=== PATIENT | male | born 1945 | race Caucasian/White ===

== ENCOUNTER 2018-06-27 09:45 | Inpatient (IN) | payer MEDICARE, MEDICAID ==
[~2018-06-27] VITALS: Ht 170.2 cm; Wt 89.0 kg
[~2018-06-27 09:45] MED LIST: BUSP10TA11 PO; DOCU250C4 PO; HYDR-3972 PO; NITR0.4T SL; OMEP20CA10 PO; PAX20T PO; PIOG45TA PO
[2018-06-27] MEDS ORDERED: fentaNYL/PF 50MCG/1 ML 2ML syringe IV ONE (09:50)
[2018-06-27] MEDS ORDERED: normal saline 1000ML IV soln IVB ONE (09:50)
[2018-06-27] MEDS ORDERED: ondansetron/PF 4mg/2ml inj IV ONE (09:50)
[2018-06-27 10:29] LABS: INR 1.2 INR; PROTHROMBIN TIME 12.3 SECONDS (9.0-12.0)
[2018-06-27 10:34] LABS: BASOPHILS % (AUTO) 0.1 % (0-1); EOSINOPHILS % (AUTO) 0.1 % (0-6); HEMATOCRIT 36.4 % (42.0-52.0); HEMOGLOBIN 12.6 g/dl (14.0-17.9); LYMPHOCYTES # (AUTO) 0.7 X10'3 (1.1-4.8); LYMPHOCYTES % (AUTO) 11.5 % (21-51); MEAN CORPUSCULAR HGB CONC 34.6 % (33.0-36.5); MEAN PLATELET VOLUME 7.7 FL (7.4-10.4); MONOCYTES # (AUTO) 0.5 X10'3 (0-0.9); MONOCYTES % (AUTO) 8.3 % (2-12); NEUTROPHILS # (AUTO) 4.7 X10'3 (1.8-7.7); PLATELET COUNT 276 X10'3 (140-440); RED CELL DISTRIBUTION WIDTH 13.9 % (11.5-14.5); WHITE BLOOD COUNT 5.9 X10'3 (4.5-11.0)
[2018-06-27 10:35] LABS: ALANINE AMINOTRANSFERASE 17 U/L (12-78); ALBUMIN 2.8 G/DL (3.4-5.0); ALBUMIN/GLOBULIN RATIO 0.7 (1.1-1.5); ALKALINE PHOSPHATASE 223 IU/L (46-116); ANION GAP 9 (8-16); ASPARTATE AMINO TRANSFERASE 21 U/L (10-37); BILIRUBIN,TOTAL 0.8 MG/DL (0.1-1.0); BLOOD UREA NITROGEN 14 MG/DL (7-18); BUN/CREATININE RATIO 18.2 (5.4-32.0); CALCIUM 8.3 MG/DL (8.5-10.1); CHLORIDE 99 MMOL/L (99-107); CREATININE 0.77 MG/DL (0.60-1.10); GLUCOSE 104 MG/DL (70-104); POTASSIUM 3.7 MMOL/L (3.5-5.1); SODIUM 136 MMOL/L (135-145); TOTAL CARBON DIOXIDE 28.2 MMOL/L (24-32); TOTAL PROTEIN 6.6 G/DL (6.4-8.2); eGFR > 90 ML/MIN
[2018-06-27] MEDS ORDERED: CYAN1TAB41 PO (11:04)
[2018-06-27] MEDS ORDERED: CALC1TAB PO (11:04)
[2018-06-27] MEDS ORDERED: PIOG45TA5 PO (11:04)
[2018-06-27] MEDS ORDERED: OXYB5TAB11 PO (11:04)
[2018-06-27] MEDS ORDERED: ASCO500C15 PO (11:04)
[2018-06-27] MEDS ORDERED: nitroGLYCERIN 0.4mg SUBLingual tab SL PRN (11:15)
[2018-06-27] MEDS ORDERED: acetaminophen 325mg tablet PO PRN (11:20)
[2018-06-27] MEDS ORDERED: magnesium 1gm/100ml D5W IVPB 100 ML IV PRN (11:20)
[2018-06-27] MEDS ORDERED: dextrose ORAL solution 15 GM/59 ML bottle PO PRN ×2 (11:20)
[2018-06-27] MEDS ORDERED: magnesium 4gm in 100ml NS 100 ML IV PRN (11:20)
[2018-06-27] MEDS ORDERED: potassium Cl 20 mEq SR tablet PO PRN ×2 (11:20)
[2018-06-27] MEDS ORDERED: potassium Cl 40MEQ/NS 500ml 500 ML IV PRN ×2 (11:20)
[2018-06-27] MEDS ORDERED: insulin Lispro (HumaLOG) vial - multi-dose SQ SCH (11:20)
[2018-06-27] MEDS ORDERED: MESSAGE TO PHARMACY PO ONE (11:20)
[2018-06-27] MEDS ORDERED: mag hydrox/Alum hydrox/simeth 30ml oral suspension PO PRN (11:20)
[2018-06-27] MEDS ORDERED: dextrose 50%-water 50ml dispensing syringe IV PRN ×2 (11:20)
[2018-06-27] MEDS ORDERED: glucagon, human recombinant 1mg kit SUBCUT PRN (11:20)
[2018-06-27] MEDS ORDERED: ondansetron/PF 4mg/2ml inj IV PRN (11:20)
[2018-06-27] MEDS ORDERED: furosemide 10 MG/1 ML 10ml inj IV ONE (11:45)
[2018-06-27] MEDS ORDERED: pneumococcal 23-VAL P-sac vacc 25 mcg/0.5ml vial IMVAC ONE (11:45)
[2018-06-27] MEDS: normal saline 1000ml 1,000 ML IV SCH ×2 (12:01→23:47)
[2018-06-27 12:21] LABS: CLARITY,URINE CLOUDY (Clear); COLOR,URINE YELLOW (Yellow); GLUCOSE, URINE NEGATIVE (Neg); KETONES,URINE 40 mg/dl (Neg); LEUKOCYTE ESTERASE ,URINE NEGATIVE (Neg); NITRITES, URINE NEGATIVE (Neg); OCCULT BLOOD,URINE NEGATIVE (Neg); PH,URINE 6.5 (4.8-8.0); PROTEIN,URINE NEGATIVE (Neg)
[2018-06-27 12:24] LABS: UA COLLECTION TYPE CLN CATCH MIDSTREAM
[2018-06-27 12:33] LABS: AMORPHOUS PHOSPHATES 3+; BACTERIA,URINE NONE SEEN /HPF (Neg); MUCUS STRANDS NONE SEEN /LPF (Neg); RBC,URINE 0-2 /HPF (0-2); SQUAMOUS EPITHELIAL CELL,UR NONE SEEN /LPF (FEW); WBC,URINE NONE SEEN /HPF (0-4)
[2018-06-27] MEDS: HYDROcodone/acetaminophen 10/325mg tab PO PRN ×3 (12:55→23:49)
[2018-06-27 13:07] LABS: HEMOGLOBIN A1C 5.1 % (4.5-6.2)
[2018-06-27 14:00] VITALS: BP 124/87
[2018-06-27 18:00] VITALS: BP 135/74
[2018-06-27] MEDS ORDERED: temazepam 15mg capsule PO PRN (19:40)
[2018-06-27] MEDS: insulin glargine (Lantus) pen - multi-dose SQ SCH (21:00)
[2018-06-27] MEDS: docusate sod 250mg capsule PO SCH (21:03)
[2018-06-27] MEDS: oxybutynin 5mg tablet PO SCH (21:03)
[2018-06-27] MEDS: busPIRone 15mg tablet PO SCH (21:03)
[2018-06-27] MEDS: ipratropium/albuterol 3ml nebule NEB SCH (21:35)
[2018-06-27 22:00] VITALS: BP 126/77
[2018-06-28] MEDS: HYDROcodone/acetaminophen 10/325mg tab PO PRN ×3 (05:13→19:46)
[2018-06-28 05:45] LABS: BASOPHILS % (AUTO) 0.1 % (0-1); EOSINOPHILS % (AUTO) 0.3 % (0-6); HEMATOCRIT 34.7 % (42.0-52.0); HEMOGLOBIN 12.3 g/dl (14.0-17.9); LYMPHOCYTES # (AUTO) 0.8 X10'3 (1.1-4.8); LYMPHOCYTES % (AUTO) 11.2 % (21-51); MEAN CORPUSCULAR HEMOGLOBIN 35.9 PG (27.0-31.0); MEAN CORPUSCULAR HGB CONC 35.5 % (33.0-36.5); MEAN CORPUSCULAR VOLUME 100.9 FL (78-98); MEAN PLATELET VOLUME 7.9 FL (7.4-10.4); MONOCYTES # (AUTO) 0.8 X10'3 (0-0.9); MONOCYTES % (AUTO) 11.7 % (2-12); NEUTROPHILS # (AUTO) 5.4 X10'3 (1.8-7.7); NEUTROPHILS % (AUTO) 76.7 % (42-75); PLATELET COUNT 265 X10'3 (140-440); RED BLOOD COUNT 3.44 X10'6 (4.70-6.10); RED CELL DISTRIBUTION WIDTH 14.2 % (11.5-14.5)
[2018-06-28 06:00] VITALS: BP 147/75
[2018-06-28 06:09] LABS: ALANINE AMINOTRANSFERASE 17 U/L (12-78); ALBUMIN 2.6 G/DL (3.4-5.0); ALBUMIN/GLOBULIN RATIO 0.7 (1.1-1.5); ALKALINE PHOSPHATASE 193 IU/L (46-116); ANION GAP 7 (8-16); ASPARTATE AMINO TRANSFERASE 20 U/L (10-37); BILIRUBIN,TOTAL 0.6 MG/DL (0.1-1.0); BLOOD UREA NITROGEN 16 MG/DL (7-18); BUN/CREATININE RATIO 20.5 (5.4-32.0); CALCIUM 7.9 MG/DL (8.5-10.1); CHLORIDE 101 MMOL/L (99-107); CHOL/HDL RATIO 4.7 (0.00-4.99); CHOLESTEROL 164 MG/DL (0-200); CREATININE 0.78 MG/DL (0.60-1.10); GLUCOSE 99 MG/DL (70-104); HDL CHOLESTEROL 35 MG/DL (35-60); LDL CHOLESTEROL 120 MG/DL (50-100); MAGNESIUM 1.7 MG/DL (1.5-2.4); POTASSIUM 3.9 MMOL/L (3.5-5.1); SODIUM 138 MMOL/L (135-145); TOTAL CARBON DIOXIDE 30.1 MMOL/L (24-32); TOTAL PROTEIN 6.2 G/DL (6.4-8.2); TRIGLYCERIDES 64 MG/DL (20-135); eGFR > 90 ML/MIN
[2018-06-28] MEDS: K and/or MAG REPLACEMENT MC SCH (07:10)
[2018-06-28] MEDS: ascorbic acid 500mg tablet PO SCH (07:27)
[2018-06-28] MEDS: calcium carbonate/vitamin D3 tablet PO SCH (07:29)
[2018-06-28] MEDS: PARoxetine 20mg tablet PO SCH (07:30)
[2018-06-28] MEDS: busPIRone 15mg tablet PO SCH ×2 (07:32→19:45)
[2018-06-28] MEDS: docusate sod 250mg capsule PO SCH ×2 (07:33→19:45)
[2018-06-28] MEDS: oxybutynin 5mg tablet PO SCH ×2 (07:34→19:45)
[2018-06-28] MEDS: pantoprazole 40mg Tablet.DR PO SCH (07:35)
[2018-06-28] MEDS ORDERED: FOLIC ACID PO SCH (08:00)
[2018-06-28] MEDS ORDERED: CYANOCOBALAMIN PO SCH (08:00)
[2018-06-28] MEDS: ipratropium/albuterol 3ml nebule NEB SCH ×3 (09:00→20:11)
[2018-06-28 10:00] VITALS: BP 145/76
[2018-06-28] MEDS ORDERED: clindamycin 600mg/D5W 50ml 50 ML IV ONE (10:00)
[2018-06-28] MEDS ORDERED: enoxaparin 40mg/0.4ml syringe SUBCUT SCH ×2 (13:25→14:00)
[2018-06-28] MEDS ORDERED: furosemide 20 MG/2 ML vial IV SCH ×2 (13:25→14:00)
[2018-06-28] MEDS ORDERED: furosemide 20 MG/2 ML vial IV ONE (14:50)
[2018-06-28] MEDS ORDERED: enoxaparin 40mg/0.4ml syringe SUBCUT ONE (14:50)
[2018-06-28] MEDS: potassium Cl 20 mEq SR tablet PO SCH (17:09)
[2018-06-28 18:00] VITALS: BP 128/71
[2018-06-28] MEDS: lactobacillus rhamnosus 10,000 MMU CELLS/CAPSULE PO SCH (19:45)
[2018-06-28] MEDS: insulin glargine (Lantus) pen - multi-dose SQ SCH (21:00)
[2018-06-28 22:00] VITALS: BP 115/73
[2018-06-29] VITALS (11 sets, daily range): BP systolic 106–159; BP diastolic 67–114
[2018-06-29] MEDS: HYDROcodone/acetaminophen 10/325mg tab PO PRN ×3 (05:00→20:03)
[2018-06-29 05:52] LABS: BASOPHILS % (AUTO) 0.1 % (0-1); EOSINOPHILS % (AUTO) 0.1 % (0-6); HEMATOCRIT 36.1 % (42.0-52.0); HEMOGLOBIN 12.6 g/dl (14.0-17.9); LYMPHOCYTES # (AUTO) 0.5 X10'3 (1.1-4.8); LYMPHOCYTES % (AUTO) 4.9 % (21-51); MEAN CORPUSCULAR HEMOGLOBIN 35.3 PG (27.0-31.0); MEAN CORPUSCULAR VOLUME 100.8 FL (78-98); MEAN PLATELET VOLUME 7.9 FL (7.4-10.4); MONOCYTES # (AUTO) 0.7 X10'3 (0-0.9); MONOCYTES % (AUTO) 7.2 % (2-12); NEUTROPHILS # (AUTO) 8.3 X10'3 (1.8-7.7); NEUTROPHILS % (AUTO) 87.7 % (42-75); PLATELET COUNT 266 X10'3 (140-440); RED BLOOD COUNT 3.59 X10'6 (4.70-6.10); RED CELL DISTRIBUTION WIDTH 14.5 % (11.5-14.5); WHITE BLOOD COUNT 9.5 X10'3 (4.5-11.0)
[2018-06-29 06:10] LABS: ALANINE AMINOTRANSFERASE 14 U/L (12-78); ALBUMIN 2.6 G/DL (3.4-5.0); ALBUMIN/GLOBULIN RATIO 0.7 (1.1-1.5); ALKALINE PHOSPHATASE 184 IU/L (46-116); ANION GAP 5 (8-16); ASPARTATE AMINO TRANSFERASE 18 U/L (10-37); BILIRUBIN,TOTAL 0.7 MG/DL (0.1-1.0); BLOOD UREA NITROGEN 21 MG/DL (7-18); CALCIUM 8.5 MG/DL (8.5-10.1); CHLORIDE 100 MMOL/L (99-107); GLUCOSE 83 MG/DL (70-104); MAGNESIUM 1.7 MG/DL (1.5-2.4); POTASSIUM 4.1 MMOL/L (3.5-5.1); SODIUM 138 MMOL/L (135-145); TOTAL CARBON DIOXIDE 32.8 MMOL/L (24-32); TOTAL PROTEIN 6.2 G/DL (6.4-8.2); eGFR > 90 ML/MIN
[2018-06-29] MEDS: pantoprazole 40mg Tablet.DR PO SCH (07:24)
[2018-06-29] MEDS: busPIRone 15mg tablet PO SCH ×2 (07:24→20:03)
[2018-06-29] MEDS: ascorbic acid 500mg tablet PO SCH (07:24)
[2018-06-29] MEDS: calcium carbonate/vitamin D3 tablet PO SCH (07:25)
[2018-06-29] MEDS: potassium Cl 20 mEq SR tablet PO SCH ×2 (07:25→17:30)
[2018-06-29] MEDS: oxybutynin 5mg tablet PO SCH ×2 (07:26→20:03)
[2018-06-29] MEDS: lactobacillus rhamnosus 10,000 MMU CELLS/CAPSULE PO SCH ×2 (07:26→20:03)
[2018-06-29] MEDS: PARoxetine 20mg tablet PO SCH (07:26)
[2018-06-29] MEDS: docusate sod 250mg capsule PO SCH ×2 (07:26→20:03)
[2018-06-29] MEDS: furosemide 20 MG/2 ML vial IV SCH ×2 (07:27→20:00)
[2018-06-29] MEDS: K and/or MAG REPLACEMENT MC SCH (07:35)
[2018-06-29] MEDS ORDERED: enoxaparin 40mg/0.4ml syringe SUBCUT SCH (08:00)
[2018-06-29] MEDS: ipratropium/albuterol 3ml nebule NEB SCH ×3 (09:00→21:15)
[2018-06-29 11:14] LABS: INR 1.2 INR; PARTIAL THROMBOPLASTIN TIME 31 SECONDS (22-32); PROTHROMBIN TIME 12.1 SECONDS (9.0-12.0)
[2018-06-29] MEDS ORDERED: clindamycin 600mg/D5W 50ml 50 ML IV ONE (15:00)
[2018-06-29] MEDS ORDERED: ondansetron/PF 4mg/2ml inj ONE (15:10)
[2018-06-29] MEDS ORDERED: ePHEDrine 50MG/ML INJ. ONE (15:10)
[2018-06-29] MEDS ORDERED: sevoflurane 250ml liquid IH ONE (15:10)
[2018-06-29] MEDS ORDERED: BUPIVAcaine/PF 7.5mg/ml (0.75%) 10ml vial ONE (15:11)
[2018-06-29] MEDS ORDERED: midazolam 2 mg/2 ml injection ONE (15:13)
[2018-06-29] MEDS ORDERED: fentaNYL/PF 50MCG/1 ML 2ML syringe ONE ×4 (15:13→17:24)
[2018-06-29] MEDS ORDERED: glycopyrrolate 0.2mg/ml inj ONE (15:49)
[2018-06-29] MEDS ORDERED: dexamethasone sod phosphate 4mg/ml inj. ONE (15:49)
[2018-06-29] MEDS ORDERED: propofol inj 20 ML IV ONE (15:49)
[2018-06-29] MEDS ORDERED: rocuronium 10mg/ml inj IV ONE (15:49)
[2018-06-29] MEDS ORDERED: LIDOcaine 2% (20mg/ml) 5ml vial ONE (15:49)
[2018-06-29] MEDS ORDERED: neostigmine methylsulfate 1 MG/ML 10ml vial ONE (15:49)
[2018-06-29] MEDS ORDERED: ringers solution, lacted 1,000 ML IV SCH (16:19)
[2018-06-29] MEDS ORDERED: fentaNYL/PF 50MCG/1 ML 2ML syringe IV PRN (16:20)
[2018-06-29] MEDS ORDERED: HYDROmorphone inj. 0.5 MG/0.5 ML DISP.SYRIN IV PRN (16:20)
[2018-06-29] MEDS ORDERED: ondansetron/PF 4mg/2ml inj IV PRN (16:20)
[2018-06-29] MEDS ORDERED: ipratropium/albuterol 3ml nebule NEB STA (17:08)
[2018-06-29] MEDS ORDERED: labetalol 20mg/4ml (5mg/ml) syringe IV ONE (17:20)
[2018-06-29] MEDS: insulin glargine (Lantus) pen - multi-dose SQ SCH (21:00)
[2018-06-29] MEDS: normal saline 1000ml 1,000 ML IV SCH (22:36)
[2018-06-30] MEDS: HYDROcodone/acetaminophen 10/325mg tab PO PRN ×4 (01:35→20:13)
[2018-06-30 02:00] VITALS: BP 110/69
[2018-06-30 06:00] VITALS: BP 117/72
[2018-06-30 06:52] LABS: ALANINE AMINOTRANSFERASE 16 U/L (12-78); ALBUMIN 2.3 G/DL (3.4-5.0); ALBUMIN/GLOBULIN RATIO 0.7 (1.1-1.5); ALKALINE PHOSPHATASE 146 IU/L (46-116); ANION GAP 6 (8-16); ASPARTATE AMINO TRANSFERASE 20 U/L (10-37); BILIRUBIN,TOTAL 0.8 MG/DL (0.1-1.0); BLOOD UREA NITROGEN 29 MG/DL (7-18); BUN/CREATININE RATIO 37.7 (5.4-32.0); CALCIUM 8.2 MG/DL (8.5-10.1); CHLORIDE 101 MMOL/L (99-107); CREATININE 0.77 MG/DL (0.60-1.10); GLUCOSE 119 MG/DL (70-104); MAGNESIUM 1.7 MG/DL (1.5-2.4); POTASSIUM 4.3 MMOL/L (3.5-5.1); SODIUM 138 MMOL/L (135-145); TOTAL CARBON DIOXIDE 31.5 MMOL/L (24-32); TOTAL PROTEIN 5.8 G/DL (6.4-8.2); eGFR > 90 ML/MIN
[2018-06-30] MEDS: K and/or MAG REPLACEMENT MC SCH (07:04)
[2018-06-30 07:15] LABS: BASOPHILS % (AUTO) 0.2 % (0-1); EOSINOPHILS % (AUTO) 0.4 % (0-6); HEMATOCRIT 32.5 % (42.0-52.0); HEMOGLOBIN 11.2 g/dl (14.0-17.9); LYMPHOCYTES # (AUTO) 0.8 X10'3 (1.1-4.8); LYMPHOCYTES % (AUTO) 11.3 % (21-51); MEAN CORPUSCULAR HEMOGLOBIN 34.8 PG (27.0-31.0); MEAN CORPUSCULAR HGB CONC 34.6 % (33.0-36.5); MEAN CORPUSCULAR VOLUME 100.8 FL (78-98); MEAN PLATELET VOLUME 8.1 FL (7.4-10.4); MONOCYTES # (AUTO) 0.9 X10'3 (0-0.9); MONOCYTES % (AUTO) 12.9 % (2-12); NEUTROPHILS # (AUTO) 5.3 X10'3 (1.8-7.7); NEUTROPHILS % (AUTO) 75.2 % (42-75); PLATELET COUNT 247 X10'3 (140-440); RED BLOOD COUNT 3.22 X10'6 (4.70-6.10); RED CELL DISTRIBUTION WIDTH 14.4 % (11.5-14.5)
[2018-06-30] MEDS: lactobacillus rhamnosus 10,000 MMU CELLS/CAPSULE PO SCH ×2 (08:08→20:12)
[2018-06-30] MEDS: ascorbic acid 500mg tablet PO SCH (08:09)
[2018-06-30] MEDS: potassium Cl 20 mEq SR tablet PO SCH ×2 (08:09→17:01)
[2018-06-30] MEDS: PARoxetine 20mg tablet PO SCH (08:10)
[2018-06-30] MEDS: oxybutynin 5mg tablet PO SCH ×2 (08:10→20:12)
[2018-06-30] MEDS: calcium carbonate/vitamin D3 tablet PO SCH (08:10)
[2018-06-30] MEDS: pantoprazole 40mg Tablet.DR PO SCH (08:11)
[2018-06-30] MEDS: busPIRone 15mg tablet PO SCH ×2 (08:11→20:12)
[2018-06-30] MEDS: docusate sod 250mg capsule PO SCH ×2 (08:11→20:12)
[2018-06-30] MEDS: enoxaparin 40mg/0.4ml syringe SUBCUT SCH (08:12)
[2018-06-30] MEDS: furosemide 20 MG/2 ML vial IV SCH ×2 (08:14→20:14)
[2018-06-30 10:00] VITALS: BP 124/73
[2018-06-30] MEDS: ipratropium/albuterol 3ml nebule NEB SCH ×3 (10:03→21:17)
[2018-06-30] MEDS: normal saline 1000ml 1,000 ML IV SCH ×2 (15:10→22:53)
[2018-06-30 17:00] VITALS: BP 121/73
[2018-06-30] MEDS: insulin glargine (Lantus) pen - multi-dose SQ SCH (21:00)
[2018-06-30 22:00] VITALS: BP 113/68
[2018-07-01] VITALS (11 sets, daily range): BP systolic 109–141; BP diastolic 57–103
[2018-07-01] MEDS: magnesium hydroxide 30ml (MOM) UD suspension PO PRN ×2 (01:46→20:34)
[2018-07-01 02:16] LABS: ABG BASE EXCESS 6.9 mmol/L (-2.0-3.0); ABG HCO3 34.1 mmol/L (22.0-26.0); ABG OXYGEN SATURATION 90.8 % (95-98); ABG PCO2 (T) 62.9 mmHg (35.0-48.0); ABG PH (T) 7.353 (7.350-7.450); ABG PO2 (T) 61.9 mmHg (83-108); ALLEN'S TEST Positive; FCOHb 0.7 % (0.5-1.5); FLOW 6 L/min; FMetHb 0.2 % (0.3-1.12); PATIENT TEMPERATURE 37.2; TOTAL HEMOGLOBIN 11.5 G/dl (14.0-18.0)
[2018-07-01 02:50] LABS: BASOPHILS % (AUTO) 0.3 % (0-1); EOSINOPHILS % (AUTO) 0.3 % (0-6); HEMATOCRIT 31.2 % (42.0-52.0); HEMOGLOBIN 10.7 g/dl (14.0-17.9); LYMPHOCYTES # (AUTO) 0.8 X10'3 (1.1-4.8); MEAN CORPUSCULAR HEMOGLOBIN 34.7 PG (27.0-31.0); MEAN CORPUSCULAR HGB CONC 34.3 % (33.0-36.5); MEAN CORPUSCULAR VOLUME 101.2 FL (78-98); MEAN PLATELET VOLUME 7.6 FL (7.4-10.4); MONOCYTES # (AUTO) 1.1 X10'3 (0-0.9); MONOCYTES % (AUTO) 16.5 % (2-12); NEUTROPHILS # (AUTO) 4.9 X10'3 (1.8-7.7); NEUTROPHILS % (AUTO) 70.9 % (42-75); PLATELET COUNT 261 X10'3 (140-440); RED BLOOD COUNT 3.09 X10'6 (4.70-6.10); RED CELL DISTRIBUTION WIDTH 14.3 % (11.5-14.5); WHITE BLOOD COUNT 6.8 X10'3 (4.5-11.0)
[2018-07-01] MEDS ORDERED: LORazepam 2 mg/ml vial IV ONE (02:55)
[2018-07-01 02:59] LABS: ALANINE AMINOTRANSFERASE 15 U/L (12-78); ALBUMIN 2.3 G/DL (3.4-5.0); ALBUMIN/GLOBULIN RATIO 0.7 (1.1-1.5); ALKALINE PHOSPHATASE 161 IU/L (46-116); ANION GAP 2 (8-16); ASPARTATE AMINO TRANSFERASE 17 U/L (10-37); BILIRUBIN,TOTAL 0.7 MG/DL (0.1-1.0); BLOOD UREA NITROGEN 31 MG/DL (7-18); BUN/CREATININE RATIO 43.1 (5.4-32.0); CALCIUM 8.2 MG/DL (8.5-10.1); CHLORIDE 101 MMOL/L (99-107); CREATININE 0.72 MG/DL (0.60-1.10); GLUCOSE 120 MG/DL (70-104); POTASSIUM 4.4 MMOL/L (3.5-5.1); SODIUM 139 MMOL/L (135-145); TOTAL CARBON DIOXIDE 36.4 MMOL/L (24-32); TOTAL PROTEIN 5.8 G/DL (6.4-8.2); eGFR > 90 ML/MIN
[2018-07-01] MEDS ORDERED: ipratropium/albuterol 3ml nebule NEB ONE (03:05)
[2018-07-01 03:07] LABS: MAGNESIUM 1.8 MG/DL (1.5-2.4); PHOSPHORUS 2.6 MG/DL (2.3-4.5); TROPONIN I < 0.04 NG/ML (0.0-0.05)
[2018-07-01 03:22] LABS: CLARITY,URINE CLEAR (Clear); COLOR,URINE YELLOW (Yellow); GLUCOSE, URINE NEGATIVE (Neg); KETONES,URINE NEGATIVE (Neg); LEUKOCYTE ESTERASE ,URINE NEGATIVE (Neg); NITRITES, URINE NEGATIVE (Neg); OCCULT BLOOD,URINE MODERATE (Neg); PROTEIN,URINE TRACE mg/dl (Neg)
[2018-07-01 03:40] LABS: MUCUS STRANDS MANY /LPF (Neg); SQUAMOUS EPITHELIAL CELL,UR FEW /LPF (FEW); UA COLLECTION TYPE FOLEY CATH
[2018-07-01 03:41] LABS: BACTERIA,URINE 1+ /HPF (Neg); RBC,URINE 50-100 /HPF (0-2)
[2018-07-01] MEDS: pantoprazole 40mg Tablet.DR PO SCH (07:30)
[2018-07-01] MEDS: busPIRone 15mg tablet PO SCH ×2 (08:00→19:39)
[2018-07-01] MEDS: docusate sod 250mg capsule PO SCH ×2 (08:00→19:38)
[2018-07-01] MEDS: oxybutynin 5mg tablet PO SCH ×2 (08:00→19:38)
[2018-07-01] MEDS: ascorbic acid 500mg tablet PO SCH (08:00)
[2018-07-01] MEDS: calcium carbonate/vitamin D3 tablet PO SCH (08:00)
[2018-07-01] MEDS: lactobacillus rhamnosus 10,000 MMU CELLS/CAPSULE PO SCH ×3 (08:00→20:34)
[2018-07-01] MEDS: PARoxetine 20mg tablet PO SCH (08:00)
[2018-07-01] MEDS: K and/or MAG REPLACEMENT MC SCH (08:00)
[2018-07-01] MEDS: furosemide 20 MG/2 ML vial IV SCH ×2 (08:00→19:38)
[2018-07-01] MEDS ORDERED: methylPREDNISolone sod succ 125mg/2ml vial IV SCH (08:00)
[2018-07-01] MEDS: ipratropium/albuterol 3ml nebule NEB SCH ×3 (08:53→20:22)
[2018-07-01] MEDS: potassium Cl 20 mEq SR tablet PO SCH ×2 (09:24→19:38)
[2018-07-01] MEDS: levoFLOXACIN-Levaquin 500mg/D5 100 ML IV SCH (09:25)
[2018-07-01] MEDS: enoxaparin 40mg/0.4ml syringe SUBCUT SCH (09:25)
[2018-07-01] MEDS: HYDROcodone/acetaminophen 10/325mg tab PO PRN ×2 (13:06→20:59)
[2018-07-01] MEDS: insulin glargine (Lantus) pen - multi-dose SQ SCH (20:39)
[2018-07-02 02:00] VITALS: BP 111/68
[2018-07-02 06:00] VITALS: BP 124/76
[2018-07-02 06:12] LABS: BASOPHILS % (AUTO) 0.3 % (0-1); EOSINOPHILS # (AUTO) 0.1 X10'3 (0-0.9); EOSINOPHILS % (AUTO) 1.8 % (0-6); HEMATOCRIT 29.8 % (42.0-52.0); HEMOGLOBIN 10.3 g/dl (14.0-17.9); LYMPHOCYTES # (AUTO) 0.8 X10'3 (1.1-4.8); LYMPHOCYTES % (AUTO) 12.5 % (21-51); MEAN CORPUSCULAR HEMOGLOBIN 34.8 PG (27.0-31.0); MEAN CORPUSCULAR HGB CONC 34.4 % (33.0-36.5); MEAN CORPUSCULAR VOLUME 101.2 FL (78-98); MEAN PLATELET VOLUME 7.9 FL (7.4-10.4); MONOCYTES # (AUTO) 0.9 X10'3 (0-0.9); MONOCYTES % (AUTO) 13.7 % (2-12); NEUTROPHILS # (AUTO) 4.4 X10'3 (1.8-7.7); NEUTROPHILS % (AUTO) 71.7 % (42-75); PLATELET COUNT 276 X10'3 (140-440); RED BLOOD COUNT 2.95 X10'6 (4.70-6.10); RED CELL DISTRIBUTION WIDTH 14.1 % (11.5-14.5); WHITE BLOOD COUNT 6.2 X10'3 (4.5-11.0)
[2018-07-02 07:05] LABS: ALANINE AMINOTRANSFERASE 12 U/L (12-78); ALBUMIN 2.2 G/DL (3.4-5.0); ALBUMIN/GLOBULIN RATIO 0.6 (1.1-1.5); ALKALINE PHOSPHATASE 140 IU/L (46-116); ANION GAP 2 (8-16); ASPARTATE AMINO TRANSFERASE 15 U/L (10-37); BILIRUBIN,TOTAL 0.6 MG/DL (0.1-1.0); BLOOD UREA NITROGEN 29 MG/DL (7-18); BUN/CREATININE RATIO 39.7 (5.4-32.0); CALCIUM 8.4 MG/DL (8.5-10.1); CHLORIDE 100 MMOL/L (99-107); CREATININE 0.73 MG/DL (0.60-1.10); GLUCOSE 99 MG/DL (70-104); POTASSIUM 4.3 MMOL/L (3.5-5.1); SODIUM 139 MMOL/L (135-145); TOTAL CARBON DIOXIDE 36.7 MMOL/L (24-32); TOTAL PROTEIN 5.8 G/DL (6.4-8.2); eGFR > 90 ML/MIN
[2018-07-02] MEDS: lactobacillus rhamnosus 10,000 MMU CELLS/CAPSULE PO SCH ×2 (08:00→08:06)
[2018-07-02] MEDS: K and/or MAG REPLACEMENT MC SCH (08:00)
[2018-07-02] MEDS: PARoxetine 20mg tablet PO SCH (08:05)
[2018-07-02] MEDS: furosemide 20 MG/2 ML vial IV SCH (08:05)
[2018-07-02] MEDS: potassium Cl 20 mEq SR tablet PO SCH (08:05)
[2018-07-02] MEDS: busPIRone 15mg tablet PO SCH (08:05)
[2018-07-02] MEDS: pantoprazole 40mg Tablet.DR PO SCH (08:06)
[2018-07-02] MEDS: ascorbic acid 500mg tablet PO SCH (08:06)
[2018-07-02] MEDS: oxybutynin 5mg tablet PO SCH (08:07)
[2018-07-02] MEDS: calcium carbonate/vitamin D3 tablet PO SCH (08:07)
[2018-07-02] MEDS: levoFLOXACIN-Levaquin 500mg/D5 100 ML IV SCH (08:08)
[2018-07-02] MEDS: docusate sod 250mg capsule PO SCH (08:09)
[2018-07-02] MEDS: enoxaparin 40mg/0.4ml syringe SUBCUT SCH (08:09)
[2018-07-02] MEDS: ipratropium/albuterol 3ml nebule NEB SCH ×2 (09:18→14:55)
[2018-07-02 11:00] VITALS: BP 95/71
[2018-07-02] MEDS: HYDROcodone/acetaminophen 10/325mg tab PO PRN (12:17)
[2018-07-02 15:00] VITALS: BP 120/73
[2018-07-03] MEDS ORDERED: levoFLOXACIN 500mg tablet PO SCH (11:00)
== END 2018-07-02 15:05 | DRG 469 ==
LOC: ER 09:45 → ED HOLD 11:16 → ORTHO 4S 13:05 → PCU 3S 07-01 03:48
PROVIDERS: ADMIT Family Medicine; ATTEND Internal Medicine
PROC: 3E0234Z Introduction of Serum, Toxoid and Vaccine into Muscle, Percutaneous Approach (ICD-10-PCS; 2018-06-27)
PROC: 0SRS0JA Replacement of Left Hip Joint, Femoral Surface with Synthetic Substitute, Uncemented, Open Approach (ICD-10-PCS; principal; 2018-06-29 15:10)
PROC: 5A09357 Assistance with Respiratory Ventilation, Less than 24 Consecutive Hours, Continuous Positive Airway Pressure (ICD-10-PCS; 2018-07-01)
DX: S72.012A Unspecified intracapsular fracture of left femur, initial encounter for closed fracture (principal); J96.02 Acute respiratory failure with hypercapnia; D62 Acute posthemorrhagic anemia; E46 Unspecified protein-calorie malnutrition; G47.30 Sleep apnea, unspecified; I11.0 Hypertensive heart disease with heart failure; E11.9 Type 2 diabetes mellitus without complications; F32.9 Major depressive disorder, single episode, unspecified; G89.29 Other chronic pain; M10.9 Gout, unspecified; I27.81 Cor pulmonale (chronic); I50.9 Heart failure, unspecified; T88.59XA Other complications of anesthesia, initial encounter; W18.39XA Other fall on same level, initial encounter; J44.9 Chronic obstructive pulmonary disease, unspecified; Z23 Encounter for immunization; Z88.1 Allergy status to other antibiotic agents; Z88.5 Allergy status to narcotic agent; Z88.0 Allergy status to penicillin; Z88.2 Allergy status to sulfonamides; Z90.49 Acquired absence of other specified parts of digestive tract; Z79.899 Other long term (current) drug therapy; Z87.891 Personal history of nicotine dependence; Z80.8 Family history of malignant neoplasm of other organs or systems; Z82.5 Family history of asthma and other chronic lower respiratory diseases; Z83.3 Family history of diabetes mellitus; Z68.30 Body mass index [BMI] 30.0-30.9, adult; Y93.89 Activity, other specified; Y92.89 Other specified places as the place of occurrence of the external cause; Y99.8 Other external cause status
CPT/HCPCS: 36415; 36600; 71045; 73502; 80053; 80061; 81001; 82803; 82948; 83036; 83735; 83880; 84100; 84484; 85018; 85025; 85610; 85730; 86885; 86900; 86901; 87070; 87088; 90732; 93005; 93306; 94640; 94660; 94667; 94668; 94760; 96374; 96375; 97110; 97162; 97530; 99285; A6455; A7000; A9270; C1758; C1776; J1100; J1650; J1815; J1940; J1956; J2001; J2250; J2405; J2704; J2710; J3010; J3370; J3490; J7030; J7120

== ENCOUNTER 2018-09-02 21:33 | Inpatient (IN) | payer MEDICARE, MEDICAID ==
[~2018-09-02] VITALS: Ht 167.6 cm; Wt 88.9 kg
[~2018-09-02 21:33] MED LIST changes: +ASCO500C15 PO; +CALC1TAB PO; +CYAN1TAB41 PO; +OXYB5TAB11 PO; -PIOG45TA PO; +PIOG45TA5 PO
[2018-09-02] MEDS ORDERED: ipratropium/albuterol 3ml nebule NEB ONE (21:50)
[2018-09-02 21:51] LABS: BASOPHILS % (AUTO) 0 % (0-1); EOSINOPHILS # (AUTO) 0.3 X10'3 (0-0.9); EOSINOPHILS % (AUTO) 0.5 % (0-6); HEMATOCRIT 39.2 % (42.0-52.0); HEMOGLOBIN 12.9 g/dl (14.0-17.9); LYMPHOCYTES % (AUTO) 1.9 % (21-51); MEAN CORPUSCULAR HEMOGLOBIN 32.8 PG (27.0-31.0); MEAN CORPUSCULAR HGB CONC 33.1 % (33.0-36.5); MEAN PLATELET VOLUME 7.2 FL (7.4-10.4); MONOCYTES # (AUTO) 0.4 X10'3 (0-0.9); MONOCYTES % (AUTO) 0.7 % (2-12); NEUTROPHILS # (AUTO) 54.1 X10'3 (1.8-7.7); NEUTROPHILS % (AUTO) 96.9 % (42-75); PLATELET COUNT 453 X10'3 (140-440); RED BLOOD COUNT 3.95 X10'6 (4.70-6.10); RED CELL DISTRIBUTION WIDTH 16.2 % (11.5-14.5)
[2018-09-02] MEDS ORDERED: LORazepam 2 mg/ml vial IV ONE (21:55)
[2018-09-02] MEDS ORDERED: methylPREDNISolone sod succ 125mg/2ml vial IV ONE (21:55)
[2018-09-02] MEDS ORDERED: normal saline 1000ml 1,000 ML IV ONE ×3 (21:55→22:40)
[2018-09-02] MEDS ORDERED: levoFLOXACIN-Levaquin 750MG/D5 150 ML IV STA (21:56)
[2018-09-02 22:01] LABS: WHITE BLOOD COUNT 55.8 X10'3 (4.5-11.0)
[2018-09-02 22:05] LABS: INR 1.3 INR; PARTIAL THROMBOPLASTIN TIME 36 SECONDS (22-32); PROTHROMBIN TIME 13.4 SECONDS (9.0-12.0)
[2018-09-02] MEDS ORDERED: acetaminophen 1,000mg/100ml IV 100 ML IV ONE (22:05)
[2018-09-02 22:07] LABS: ALANINE AMINOTRANSFERASE 12 U/L (12-78); ALBUMIN 2.1 G/DL (3.4-5.0); ALBUMIN/GLOBULIN RATIO 0.5 (1.1-1.5); ALKALINE PHOSPHATASE 251 IU/L (46-116); ANION GAP 14 (8-16); ASPARTATE AMINO TRANSFERASE 18 U/L (10-37); BILIRUBIN,TOTAL 1.1 MG/DL (0.1-1.0); BLOOD UREA NITROGEN 23 MG/DL (7-18); BUN/CREATININE RATIO 21.5 (5.4-32.0); CALCIUM 9.4 MG/DL (8.5-10.1); CHLORIDE 92 MMOL/L (99-107); CREATININE 1.07 MG/DL (0.60-1.10); GLUCOSE 230 MG/DL (70-104); POTASSIUM 5.2 MMOL/L (3.5-5.1); SODIUM 128 MMOL/L (135-145); TOTAL CARBON DIOXIDE 22.5 MMOL/L (24-32); TOTAL PROTEIN 6.7 G/DL (6.4-8.2); eGFR 68 ML/MIN
[2018-09-02 22:20] LABS: ABG HCO3 23.6 mmol/L (22.0-26.0); ABG OXYGEN SATURATION 90.3 % (95-98); ABG PH (T) 7.427 (7.350-7.450); FCOHb 0.8 % (0.5-1.5); FMetHb 0.2 % (0.3-1.12); FO2Hb 89.4 % (94-100); PATIENT TEMPERATURE 38.3; RESPIRATORY RATE 20 b/min; RESPIRATORY RATE (OBSERVED) 45 b/min; TOTAL HEMOGLOBIN 12.8 G/dl (14.0-18.0)
[2018-09-02] MEDS ORDERED: adenosine 3mg/ml 2ml vial IV ONE ×2 (22:20→22:50)
[2018-09-02] MEDS ORDERED: diltiazem 5mg/ml 5ml inj. IV ONE (22:55)
[2018-09-02] MEDS ORDERED: diltiazem-NS 100mg/100ml 100 ML IV ONE (23:05)
[2018-09-02] MEDS ORDERED: diltiazem-D5W 125mg/125ml 125 ML IV ONE (23:11)
[2018-09-02] MEDS ORDERED: diltiazem-D5W 125mg/125ml 100 ML IV ONE (23:11)
[2018-09-02 23:26] LABS: TOTAL CELLS COUNTED 100
[2018-09-02 23:27] LABS: ANISOCYTOSIS 1+; PLATELET ESTIMATE INCREASED
[2018-09-02] MEDS ORDERED: iohexol 350MG/ML 100ml bottle IV ONE (23:43)
[2018-09-02 23:54] LABS: MAGNESIUM 1.8 MG/DL (1.5-2.4)
[2018-09-03] VITALS (21 sets, daily range): BP systolic 86–127; BP diastolic 53–93
[2018-09-03] MEDS ORDERED: CefTRIAXone 2gm/D5W 50ml 50 ML IV ONE (00:25)
[2018-09-03] MEDS ORDERED: methylPREDNISolone sod succ 125mg/2ml vial IV ONE (01:55)
[2018-09-03] MEDS ORDERED: normal saline 1000ML IV soln IVB ONE (02:00)
[2018-09-03] MEDS ORDERED: clindamycin 600mg/D5W 50ml 50 ML IV SCH (02:00)
[2018-09-03] MEDS ORDERED: dextrose ORAL solution 15 GM/59 ML bottle PO PRN (03:25)
[2018-09-03] MEDS ORDERED: dextrose 50%-water 50ml dispensing syringe IV PRN ×2 (03:25)
[2018-09-03] MEDS ORDERED: HYDROcodone/acetaminophen 5mg/325mg tablet PO PRN (03:25)
[2018-09-03] MEDS ORDERED: MESSAGE TO PHARMACY PO ONE (03:25)
[2018-09-03] MEDS ORDERED: acetaminophen 650mg rectal suppository RC PRN (03:25)
[2018-09-03] MEDS ORDERED: ondansetron/PF 4mg/2ml inj IV PRN (03:25)
[2018-09-03] MEDS ORDERED: acetaminophen 325mg tablet PO PRN ×2 (03:25)
[2018-09-03] MEDS ORDERED: glucagon, human recombinant 1mg kit SUBCUT PRN (03:25)
[2018-09-03 04:27] LABS: CLARITY,URINE CLEAR (Clear); COLOR,URINE YELLOW (Yellow); GLUCOSE, URINE NEGATIVE (Neg); KETONES,URINE NEGATIVE (Neg); LEUKOCYTE ESTERASE ,URINE NEGATIVE (Neg); NITRITES, URINE NEGATIVE (Neg); OCCULT BLOOD,URINE NEGATIVE (Neg); PH,URINE 5.5 (4.8-8.0); PROTEIN,URINE TRACE mg/dl (Neg); UROBILINOGEN,URINE 0.2 E.U/dL (0.2-1.0)
[2018-09-03 04:30] LABS: UA COLLECTION TYPE URINAL
[2018-09-03] MEDS ORDERED: nitroGLYCERIN 0.4mg SUBLingual tab SL PRN (04:30)
[2018-09-03 04:36] LABS: FINE GRANULAR CAST 0-3 /LPF (NEGATIVE); MUCUS STRANDS NONE SEEN /LPF (Neg)
[2018-09-03 04:37] LABS: SQUAMOUS EPITHELIAL CELL,UR FEW /LPF (FEW)
[2018-09-03 04:38] LABS: BACTERIA,URINE NONE SEEN /HPF (Neg); RBC,URINE 0-2 /HPF (0-2); WBC,URINE 0-4 /HPF (0-4)
[2018-09-03 07:08] LABS: BASOPHILS % (AUTO) 0 % (0-1); EOSINOPHILS % (AUTO) 0 % (0-6); HEMATOCRIT 34.7 % (42.0-52.0); HEMOGLOBIN 11.5 g/dl (14.0-17.9); LYMPHOCYTES # (AUTO) 0.8 X10'3 (1.1-4.8); LYMPHOCYTES % (AUTO) 1.5 % (21-51); MEAN CORPUSCULAR HGB CONC 33.2 % (33.0-36.5); MEAN CORPUSCULAR VOLUME 99.5 FL (78-98); MEAN PLATELET VOLUME 7.3 FL (7.4-10.4); MONOCYTES # (AUTO) 0.9 X10'3 (0-0.9); MONOCYTES % (AUTO) 1.8 % (2-12); NEUTROPHILS # (AUTO) 49.5 X10'3 (1.8-7.7); NEUTROPHILS % (AUTO) 96.7 % (42-75); PLATELET COUNT 382 X10'3 (140-440); RED BLOOD COUNT 3.49 X10'6 (4.70-6.10); RED CELL DISTRIBUTION WIDTH 16.2 % (11.5-14.5)
[2018-09-03] MEDS: ipratropium/albuterol 3ml nebule NEB SCH ×5 (07:10→23:32)
[2018-09-03 07:12] LABS: WHITE BLOOD COUNT 51.2 X10'3 (4.5-11.0)
[2018-09-03 07:13] LABS: INR 1.4 INR; PARTIAL THROMBOPLASTIN TIME 36 SECONDS (22-32); PROTHROMBIN TIME 13.9 SECONDS (9.0-12.0)
[2018-09-03 07:17] LABS: ALANINE AMINOTRANSFERASE 8 U/L (12-78); ALBUMIN 1.8 G/DL (3.4-5.0); ALBUMIN/GLOBULIN RATIO 0.4 (1.1-1.5); ALKALINE PHOSPHATASE 185 IU/L (46-116); ANION GAP 8 (8-16); ASPARTATE AMINO TRANSFERASE 13 U/L (10-37); BILIRUBIN,TOTAL 0.8 MG/DL (0.1-1.0); BLOOD UREA NITROGEN 24 MG/DL (7-18); BUN/CREATININE RATIO 26.4 (5.4-32.0); CALCIUM 8.4 MG/DL (8.5-10.1); CHLORIDE 99 MMOL/L (99-107); CREATININE 0.91 MG/DL (0.60-1.10); GLUCOSE 171 MG/DL (70-104); MAGNESIUM 1.6 MG/DL (1.5-2.4); PHOSPHORUS 2.8 MG/DL (2.3-4.5); POTASSIUM 4.7 MMOL/L (3.5-5.1); SODIUM 129 MMOL/L (135-145); TOTAL CARBON DIOXIDE 21.9 MMOL/L (24-32); TOTAL PROTEIN 5.9 G/DL (6.4-8.2); eGFR 82 ML/MIN
[2018-09-03] MEDS ORDERED: vancomycin/NS 1 GM ADD-VANTAGE 250 ML X 1 DOSE IV ONE (07:20)
[2018-09-03 07:37] LABS: TOTAL CELLS COUNTED 100
[2018-09-03 07:38] LABS: ANISOCYTOSIS 1+; BURR CELLS 1+; PLATELET ESTIMATE NORMAL; ROULEAUX 1+; TARGET CELLS 1+; TOXIC GRANULATION 1+
[2018-09-03 07:39] LABS: POLYCHROMASIA 1+; TOXIC VACUOLATION FEW
[2018-09-03] MEDS ORDERED: FOLIC ACID PO SCH (08:00)
[2018-09-03] MEDS: docusate sod 100mg capsule PO SCH ×2 (08:00→19:54)
[2018-09-03] MEDS: ascorbic acid 500mg tablet PO SCH (08:00)
[2018-09-03] MEDS: calcium carbonate/vitamin D3 tablet PO SCH ×2 (08:00→19:54)
[2018-09-03] MEDS ORDERED: enoxaparin 60mg/0.6ml syringe SUBCUT SCH (08:00)
[2018-09-03] MEDS ORDERED: CYANOCOBALAMIN PO SCH (08:00)
[2018-09-03] MEDS: methylPREDNISolone sod succ/PF 40mg inj. IV SCH ×3 (08:09→19:54)
[2018-09-03] MEDS: oxybutynin 5mg tablet PO SCH ×2 (08:09→20:00)
[2018-09-03] MEDS: pantoprazole 40 MG vial IV SCH (08:09)
[2018-09-03] MEDS: PARoxetine 20mg tablet PO SCH (08:10)
[2018-09-03] MEDS: busPIRone 5mg tablet PO SCH ×2 (08:10→19:54)
[2018-09-03] MEDS: clindamycin 600mg/D5W 50ml 50 ML IV SCH ×3 (10:06→19:54)
[2018-09-03 11:43] LABS: ALBUMIN 1.7 G/DL (3.4-5.0); LACTATE DEHYDROGENASE 134 U/L (85-227); TOTAL PROTEIN 5.6 G/DL (6.4-8.2)
[2018-09-03] MEDS ORDERED: LIDOcaine 1% (10mg/ml) 2ml vial ONE (13:32)
[2018-09-03 15:03] LABS: ALBUMIN,BODY FLUID 1.3 G/DL; GLUCOSE,BODY FLUID 116 MG/DL; LDH,BODY FLUID 1923 U/L; TOTAL PROTEIN,BODY FLUID 3.4 G/DL
[2018-09-03 15:23] LABS: EOSINOPHILS,BODY FLUID 1 %; LYMPHOCYTES,BODY FLUID 1 %; MONOCYTES,BODY FLUID 1 %; NEUTROPHILS,BODY FLUID 97 %
[2018-09-03 15:25] LABS: BFAPPEAR BLOODY
[2018-09-03 15:28] LABS: BF RBC COUNT 89000 /CU MM; BF WBC COUNT 34750 /CU MM (0-1000); BFCOLOR RED; BFVOLUME 58 ML
[2018-09-03] MEDS: HYDROcodone/acetaminophen 10/325mg tab PO PRN ×2 (16:13→19:56)
[2018-09-03 16:49] LABS: HEMATOCRIT 35.2 % (42.0-52.0); HEMOGLOBIN 11.5 g/dl (14.0-17.9); MEAN CORPUSCULAR HEMOGLOBIN 32.5 PG (27.0-31.0); MEAN CORPUSCULAR HGB CONC 32.8 % (33.0-36.5); PLATELET COUNT 440 X10'3 (140-440); RED BLOOD COUNT 3.55 X10'6 (4.70-6.10)
[2018-09-03 16:51] LABS: PLATELET COUNT 431 X10'3 (140-440)
[2018-09-03 16:54] LABS: WHITE BLOOD COUNT 55.2 X10'3 (4.5-11.0)
[2018-09-03] MEDS: diltiazem-D5W 125mg/125ml 125 ML IV SCH ×2 (16:56→20:14)
[2018-09-03 17:14] LABS: INR 1.4 INR; PARTIAL THROMBOPLASTIN TIME 40 SECONDS (22-32); PROTHROMBIN TIME 13.9 SECONDS (9.0-12.0)
[2018-09-03 17:15] LABS: D-DIMER 1.51 MG/L FEU (0-0.50)
[2018-09-03] MEDS ORDERED: VANCOMYCIN 750MG IV in NS 250 ML IV SCH (19:00)
[2018-09-03 19:48] LABS: HEMOGLOBIN A1C 5.6 % (4.5-6.2)
[2018-09-03] MEDS: enoxaparin 60mg/0.6ml syringe SUBCUT SCH (19:56)
[2018-09-03] MEDS: insulin glargine (Lantus) pen - multi-dose SQ SCH (21:00)
[2018-09-04] VITALS (23 sets, daily range): BP systolic 82–120; BP diastolic 49–85
[2018-09-04] MEDS: CefTRIAXone 2gm/D5W 50ml 50 ML IV SCH ×2 (00:11→23:35)
[2018-09-04] MEDS: ipratropium/albuterol 3ml nebule NEB SCH ×6 (03:00→23:32)
[2018-09-04] MEDS: clindamycin 600mg/D5W 50ml 50 ML IV SCH ×4 (03:03→20:04)
[2018-09-04] MEDS: methylPREDNISolone sod succ/PF 40mg inj. IV SCH ×2 (03:04→08:06)
[2018-09-04] MEDS: diltiazem-D5W 125mg/125ml 125 ML IV SCH (05:00)
[2018-09-04 06:02] LABS: HEMATOCRIT 33.3 % (42.0-52.0); HEMOGLOBIN 10.9 g/dl (14.0-17.9); MEAN CORPUSCULAR HEMOGLOBIN 32.4 PG (27.0-31.0); MEAN CORPUSCULAR HGB CONC 32.7 % (33.0-36.5); MEAN PLATELET VOLUME 7.6 FL (7.4-10.4); PLATELET COUNT 458 X10'3 (140-440); RED BLOOD COUNT 3.36 X10'6 (4.70-6.10); RED CELL DISTRIBUTION WIDTH 16.8 % (11.5-14.5)
[2018-09-04 06:11] LABS: WHITE BLOOD COUNT 52.1 X10'3 (4.5-11.0)
[2018-09-04 06:25] LABS: ALANINE AMINOTRANSFERASE 10 U/L (12-78); ALBUMIN 1.6 G/DL (3.4-5.0); ALBUMIN/GLOBULIN RATIO 0.4 (1.1-1.5); ALKALINE PHOSPHATASE 165 IU/L (46-116); ANION GAP 12 (8-16); ASPARTATE AMINO TRANSFERASE 15 U/L (10-37); BILIRUBIN,TOTAL 0.5 MG/DL (0.1-1.0); BLOOD UREA NITROGEN 33 MG/DL (7-18); CALCIUM 8.2 MG/DL (8.5-10.1); CHLORIDE 98 MMOL/L (99-107); CREATININE 1.03 MG/DL (0.60-1.10); GLUCOSE 166 MG/DL (70-104); MAGNESIUM 1.8 MG/DL (1.5-2.4); PHOSPHORUS 3.6 MG/DL (2.3-4.5); POTASSIUM 4.5 MMOL/L (3.5-5.1); SODIUM 130 MMOL/L (135-145); TOTAL CARBON DIOXIDE 20.5 MMOL/L (24-32); TOTAL PROTEIN 5.9 G/DL (6.4-8.2); eGFR 71 ML/MIN
[2018-09-04 06:32] LABS: INR 1.2 INR; PARTIAL THROMBOPLASTIN TIME 43 SECONDS (22-32); PROTHROMBIN TIME 12.3 SECONDS (9.0-12.0)
[2018-09-04 07:56] LABS: PLATELET ESTIMATE INCREASED; TOTAL CELLS COUNTED 100
[2018-09-04 07:57] LABS: ANISOCYTOSIS 1+; POIKILOCYTOSIS FEW; POLYCHROMASIA 1+
[2018-09-04] MEDS: enoxaparin 60mg/0.6ml syringe SUBCUT SCH (08:06)
[2018-09-04] MEDS: busPIRone 5mg tablet PO SCH ×2 (08:07→20:04)
[2018-09-04] MEDS: calcium carbonate/vitamin D3 tablet PO SCH ×2 (08:07→20:04)
[2018-09-04] MEDS: ascorbic acid 500mg tablet PO SCH (08:07)
[2018-09-04] MEDS: docusate sod 100mg capsule PO SCH ×2 (08:07→20:04)
[2018-09-04] MEDS: pantoprazole 40 MG vial IV SCH (08:31)
[2018-09-04] MEDS: PARoxetine 20mg tablet PO SCH (08:31)
[2018-09-04] MEDS: oxybutynin 5mg tablet PO SCH ×2 (08:39→20:04)
[2018-09-04] MEDS: vancomycin/NS 1 GM ADD-VANTAGE 250 ML IV SCH ×2 (08:49→20:04)
[2018-09-04] MEDS: HYDROcodone/acetaminophen 10/325mg tab PO PRN (13:45)
[2018-09-04] MEDS: insulin Lispro (HumaLOG) vial - multi-dose SQ SCH (14:28)
[2018-09-04] MEDS: insulin glargine (Lantus) pen - multi-dose SQ SCH (20:47)
[2018-09-05] VITALS (16 sets, daily range): BP systolic 83–118; BP diastolic 53–73
[2018-09-05] MEDS: clindamycin 600mg/D5W 50ml 50 ML IV SCH ×4 (02:44→19:26)
[2018-09-05] MEDS: ipratropium/albuterol 3ml nebule NEB SCH ×6 (03:36→23:01)
[2018-09-05] MEDS ORDERED: VANCOMYCIN LEVEL IV NR (06:30)
[2018-09-05 07:07] LABS: INR 1.1 INR; PARTIAL THROMBOPLASTIN TIME 35 SECONDS (22-32); PROTHROMBIN TIME 11.2 SECONDS (9.0-12.0)
[2018-09-05 07:08] LABS: BASOPHILS % (AUTO) 0 % (0-1); EOSINOPHILS % (AUTO) 0 % (0-6); HEMATOCRIT 29.7 % (42.0-52.0); HEMOGLOBIN 9.8 g/dl (14.0-17.9); LYMPHOCYTES # (AUTO) 0.6 X10'3 (1.1-4.8); MEAN CORPUSCULAR HEMOGLOBIN 32.6 PG (27.0-31.0); MEAN CORPUSCULAR HGB CONC 33.1 % (33.0-36.5); MEAN CORPUSCULAR VOLUME 98.5 FL (78-98); MEAN PLATELET VOLUME 7.4 FL (7.4-10.4); MONOCYTES # (AUTO) 0.9 X10'3 (0-0.9); MONOCYTES % (AUTO) 2.9 % (2-12); NEUTROPHILS # (AUTO) 29.2 X10'3 (1.8-7.7); NEUTROPHILS % (AUTO) 95.1 % (42-75); PLATELET COUNT 395 X10'3 (140-440); RED BLOOD COUNT 3.01 X10'6 (4.70-6.10); RED CELL DISTRIBUTION WIDTH 16.4 % (11.5-14.5)
[2018-09-05 07:10] LABS: ALANINE AMINOTRANSFERASE 12 U/L (12-78); ALBUMIN 1.5 G/DL (3.4-5.0); ALBUMIN/GLOBULIN RATIO 0.4 (1.1-1.5); ALKALINE PHOSPHATASE 155 IU/L (46-116); ANION GAP 9 (8-16); ASPARTATE AMINO TRANSFERASE 17 U/L (10-37); BILIRUBIN,TOTAL 0.3 MG/DL (0.1-1.0); BLOOD UREA NITROGEN 41 MG/DL (7-18); BUN/CREATININE RATIO 42.3 (5.4-32.0); CALCIUM 7.7 MG/DL (8.5-10.1); CHLORIDE 100 MMOL/L (99-107); CREATININE 0.97 MG/DL (0.60-1.10); GLUCOSE 136 MG/DL (70-104); PHOSPHORUS 3.1 MG/DL (2.3-4.5); SODIUM 131 MMOL/L (135-145); TOTAL CARBON DIOXIDE 21.7 MMOL/L (24-32); TOTAL PROTEIN 5.3 G/DL (6.4-8.2); eGFR 76 ML/MIN
[2018-09-05 07:17] LABS: WHITE BLOOD COUNT 30.7 X10'3 (4.5-11.0)
[2018-09-05] MEDS: methylPREDNISolone sod succ 125mg/2ml vial IV SCH (07:19)
[2018-09-05] MEDS: pantoprazole 40 MG vial IV SCH (07:19)
[2018-09-05] MEDS: ascorbic acid 500mg tablet PO SCH (07:42)
[2018-09-05] MEDS: busPIRone 5mg tablet PO SCH ×2 (07:43→19:27)
[2018-09-05] MEDS: enoxaparin 40mg/0.4ml syringe SUBCUT SCH (07:43)
[2018-09-05] MEDS: calcium carbonate/vitamin D3 tablet PO SCH ×2 (07:43→19:27)
[2018-09-05] MEDS: PARoxetine 20mg tablet PO SCH (07:43)
[2018-09-05] MEDS: oxybutynin 5mg tablet PO SCH ×2 (07:43→19:27)
[2018-09-05] MEDS: docusate sod 100mg capsule PO SCH ×2 (07:43→19:27)
[2018-09-05 08:24] LABS: ANISOCYTOSIS 1+; PLATELET ESTIMATE NORMAL; SMUDGE CELLS 1+; TOTAL CELLS COUNTED 100
[2018-09-05] MEDS: vancomycin/NS 1 GM ADD-VANTAGE 250 ML IV SCH ×2 (09:02→21:51)
[2018-09-05] MEDS: amiodarone 200mg tablet PO SCH ×2 (10:11→19:27)
[2018-09-05] MEDS: HYDROcodone/acetaminophen 10/325mg tab PO PRN ×2 (10:12→19:27)
[2018-09-05] MEDS: insulin Lispro (HumaLOG) vial - multi-dose SQ SCH ×2 (13:40→19:24)
[2018-09-05] MEDS ORDERED: diltiazem-D5W 125mg/125ml 125 ML IV SCH (14:18)
[2018-09-05] MEDS: lactobacillus rhamnosus 10,000 MMU CELLS/CAPSULE PO SCH (19:27)
[2018-09-05] MEDS ORDERED: VANCOMYCIN LEVEL IV ONE (19:30)
[2018-09-05 20:06] LABS: VANCOMYCIN,TROUGH 23.2 UG/ML (6.0-14.0)
[2018-09-05] MEDS: insulin glargine (Lantus) pen - multi-dose SQ SCH (21:27)
[2018-09-06] MEDS: CefTRIAXone 2gm/D5W 50ml 50 ML IV SCH (00:32)
[2018-09-06] MEDS: clindamycin 600mg/D5W 50ml 50 ML IV SCH ×4 (02:00→20:07)
[2018-09-06 03:00] VITALS: BP 112/66
[2018-09-06] MEDS: ipratropium/albuterol 3ml nebule NEB SCH ×6 (03:11→22:48)
[2018-09-06 05:13] LABS: BASOPHILS % (AUTO) 0.1 % (0-1); EOSINOPHILS # (AUTO) 0.1 X10'3 (0-0.9); EOSINOPHILS % (AUTO) 0.8 % (0-6); HEMATOCRIT 32.2 % (42.0-52.0); HEMOGLOBIN 10.7 g/dl (14.0-17.9); LYMPHOCYTES % (AUTO) 5.5 % (21-51); MEAN CORPUSCULAR HEMOGLOBIN 32.7 PG (27.0-31.0); MEAN CORPUSCULAR HGB CONC 33.4 % (33.0-36.5); MEAN CORPUSCULAR VOLUME 98.1 FL (78-98); MEAN PLATELET VOLUME 7.1 FL (7.4-10.4); MONOCYTES # (AUTO) 0.9 X10'3 (0-0.9); NEUTROPHILS # (AUTO) 16.5 X10'3 (1.8-7.7); NEUTROPHILS % (AUTO) 88.6 % (42-75); PLATELET COUNT 393 X10'3 (140-440); RED BLOOD COUNT 3.28 X10'6 (4.70-6.10); RED CELL DISTRIBUTION WIDTH 16.3 % (11.5-14.5); WHITE BLOOD COUNT 18.6 X10'3 (4.5-11.0)
[2018-09-06 05:29] LABS: INR 1.1 INR; PARTIAL THROMBOPLASTIN TIME 32 SECONDS (22-32); PROTHROMBIN TIME 11.5 SECONDS (9.0-12.0)
[2018-09-06 05:32] LABS: ALANINE AMINOTRANSFERASE 19 U/L (12-78); ALBUMIN 1.6 G/DL (3.4-5.0); ALBUMIN/GLOBULIN RATIO 0.4 (1.1-1.5); ALKALINE PHOSPHATASE 172 IU/L (46-116); ANION GAP 8 (8-16); ASPARTATE AMINO TRANSFERASE 34 U/L (10-37); BILIRUBIN,TOTAL 0.3 MG/DL (0.1-1.0); BLOOD UREA NITROGEN 34 MG/DL (7-18); BUN/CREATININE RATIO 36.2 (5.4-32.0); CALCIUM 7.9 MG/DL (8.5-10.1); CHLORIDE 101 MMOL/L (99-107); CREATININE 0.94 MG/DL (0.60-1.10); GLUCOSE 92 MG/DL (70-104); PHOSPHORUS 2.8 MG/DL (2.3-4.5); POTASSIUM 4.1 MMOL/L (3.5-5.1); SODIUM 133 MMOL/L (135-145); TOTAL CARBON DIOXIDE 23.7 MMOL/L (24-32); TOTAL PROTEIN 5.2 G/DL (6.4-8.2); eGFR 79 ML/MIN
[2018-09-06 06:00] VITALS: BP 116/63
[2018-09-06 06:25] LABS: ANISOCYTOSIS 1+; PLATELET ESTIMATE NORMAL; TOTAL CELLS COUNTED 100; TOXIC VACUOLATION 1+
[2018-09-06] MEDS: methylPREDNISolone sod succ 125mg/2ml vial IV SCH (07:48)
[2018-09-06] MEDS: pantoprazole 40 MG vial IV SCH (07:48)
[2018-09-06] MEDS: busPIRone 5mg tablet PO SCH ×2 (07:52→20:07)
[2018-09-06] MEDS: docusate sod 100mg capsule PO SCH ×2 (07:54→20:07)
[2018-09-06] MEDS: calcium carbonate/vitamin D3 tablet PO SCH ×2 (07:54→20:07)
[2018-09-06] MEDS: PARoxetine 20mg tablet PO SCH (07:54)
[2018-09-06] MEDS: oxybutynin 5mg tablet PO SCH ×2 (07:54→20:07)
[2018-09-06] MEDS: lactobacillus rhamnosus 10,000 MMU CELLS/CAPSULE PO SCH ×2 (07:54→20:07)
[2018-09-06] MEDS: amiodarone 200mg tablet PO SCH ×2 (07:54→20:07)
[2018-09-06] MEDS: ascorbic acid 500mg tablet PO SCH (07:55)
[2018-09-06] MEDS: enoxaparin 40mg/0.4ml syringe SUBCUT SCH (07:56)
[2018-09-06] MEDS: VANCOMYCIN 750MG IV in NS 250 ML IV SCH ×2 (08:55→21:32)
[2018-09-06 11:00] VITALS: BP 114/64
[2018-09-06] MEDS: HYDROcodone/acetaminophen 10/325mg tab PO PRN (13:53)
[2018-09-06 15:00] VITALS: BP 140/81
[2018-09-06] MEDS: insulin Lispro (HumaLOG) vial - multi-dose SQ SCH (18:57)
[2018-09-06 19:00] VITALS: BP 110/85
[2018-09-06] MEDS: insulin glargine (Lantus) pen - multi-dose SQ SCH (21:34)
[2018-09-06 23:00] VITALS: BP 132/73
[2018-09-07] MEDS: clindamycin 600mg/D5W 50ml 50 ML IV SCH ×4 (02:45→19:18)
[2018-09-07 03:00] VITALS: BP 107/71
[2018-09-07] MEDS: ipratropium/albuterol 3ml nebule NEB SCH ×6 (03:22→23:00)
[2018-09-07] MEDS: HYDROcodone/acetaminophen 10/325mg tab PO PRN ×2 (05:37→16:17)
[2018-09-07 06:00] VITALS: BP 125/76
[2018-09-07 07:09] LABS: BASOPHILS % (AUTO) 0.1 % (0-1); EOSINOPHILS % (AUTO) 0.3 % (0-6); HEMATOCRIT 33.7 % (42.0-52.0); HEMOGLOBIN 11.3 g/dl (14.0-17.9); LYMPHOCYTES # (AUTO) 1.2 X10'3 (1.1-4.8); LYMPHOCYTES % (AUTO) 6.1 % (21-51); MEAN CORPUSCULAR HEMOGLOBIN 32.5 PG (27.0-31.0); MEAN CORPUSCULAR HGB CONC 33.5 % (33.0-36.5); MEAN CORPUSCULAR VOLUME 97.2 FL (78-98); MEAN PLATELET VOLUME 6.8 FL (7.4-10.4); MONOCYTES # (AUTO) 1.3 X10'3 (0-0.9); MONOCYTES % (AUTO) 6.6 % (2-12); NEUTROPHILS # (AUTO) 16.7 X10'3 (1.8-7.7); NEUTROPHILS % (AUTO) 86.9 % (42-75); PLATELET COUNT 395 X10'3 (140-440); RED BLOOD COUNT 3.46 X10'6 (4.70-6.10); RED CELL DISTRIBUTION WIDTH 16.5 % (11.5-14.5); WHITE BLOOD COUNT 19.3 X10'3 (4.5-11.0)
[2018-09-07 07:29] LABS: ALANINE AMINOTRANSFERASE 23 U/L (12-78); ALBUMIN 1.6 G/DL (3.4-5.0); ALBUMIN/GLOBULIN RATIO 0.5 (1.1-1.5); ALKALINE PHOSPHATASE 175 IU/L (46-116); ANION GAP 6 (8-16); ASPARTATE AMINO TRANSFERASE 30 U/L (10-37); BILIRUBIN,TOTAL 0.3 MG/DL (0.1-1.0); BLOOD UREA NITROGEN 23 MG/DL (7-18); BUN/CREATININE RATIO 31.1 (5.4-32.0); CALCIUM 7.9 MG/DL (8.5-10.1); CHLORIDE 103 MMOL/L (99-107); CREATININE 0.74 MG/DL (0.60-1.10); GLUCOSE 77 MG/DL (70-104); PHOSPHORUS 2.9 MG/DL (2.3-4.5); POTASSIUM 4.1 MMOL/L (3.5-5.1); SODIUM 136 MMOL/L (135-145); TOTAL CARBON DIOXIDE 26.7 MMOL/L (24-32); eGFR > 90 ML/MIN
[2018-09-07 07:35] LABS: ANISOCYTOSIS 1+; PLATELET ESTIMATE NORMAL; TOTAL CELLS COUNTED 100
[2018-09-07 07:36] LABS: TOXIC VACUOLATION 1+
[2018-09-07 07:44] LABS: PROTHROMBIN TIME 12.1 SECONDS (9.0-12.0)
[2018-09-07 07:45] LABS: INR 1.2 INR; PARTIAL THROMBOPLASTIN TIME 29 SECONDS (22-32)
[2018-09-07] MEDS: lactobacillus rhamnosus 10,000 MMU CELLS/CAPSULE PO SCH ×2 (08:18→19:16)
[2018-09-07] MEDS: PARoxetine 20mg tablet PO SCH (08:18)
[2018-09-07] MEDS: calcium carbonate/vitamin D3 tablet PO SCH ×2 (08:19→19:16)
[2018-09-07] MEDS: busPIRone 5mg tablet PO SCH ×2 (08:19→19:17)
[2018-09-07] MEDS: docusate sod 100mg capsule PO SCH ×2 (08:19→19:16)
[2018-09-07] MEDS: oxybutynin 5mg tablet PO SCH ×2 (08:19→19:17)
[2018-09-07] MEDS: ascorbic acid 500mg tablet PO SCH (08:19)
[2018-09-07] MEDS: pantoprazole 40 MG vial IV SCH (08:20)
[2018-09-07] MEDS: amiodarone 200mg tablet PO SCH ×2 (08:20→19:17)
[2018-09-07] MEDS: methylPREDNISolone sod succ 125mg/2ml vial IV SCH (08:21)
[2018-09-07] MEDS: enoxaparin 40mg/0.4ml syringe SUBCUT SCH (08:23)
[2018-09-07] MEDS: VANCOMYCIN 750MG IV in NS 250 ML IV SCH ×2 (09:41→21:37)
[2018-09-07 11:00] VITALS: BP 134/81
[2018-09-07 15:00] VITALS: BP 104/70
[2018-09-07 18:00] VITALS: BP 110/73
[2018-09-07] MEDS: insulin Lispro (HumaLOG) vial - multi-dose SQ SCH (19:16)
[2018-09-07] MEDS ORDERED: VANCOMYCIN LEVEL IV ONE (20:30)
[2018-09-07] MEDS: insulin glargine (Lantus) pen - multi-dose SQ SCH (21:41)
[2018-09-07 23:05] VITALS: BP 122/60
[2018-09-07] MEDS: CefTRIAXone 2gm/D5W 50ml 50 ML IV SCH ×2 (23:38)
[2018-09-08 02:00] VITALS: BP 115/72
[2018-09-08] MEDS: clindamycin 600mg/D5W 50ml 50 ML IV SCH ×4 (02:00→19:36)
[2018-09-08] MEDS: ipratropium/albuterol 3ml nebule NEB SCH ×6 (03:00→23:50)
[2018-09-08] MEDS: magnesium hydroxide 30ml (MOM) UD suspension PO PRN (05:23)
[2018-09-08] MEDS: HYDROcodone/acetaminophen 10/325mg tab PO PRN ×2 (05:23→19:38)
[2018-09-08 06:00] VITALS: BP 133/78
[2018-09-08 06:45] LABS: BASOPHILS % (AUTO) 0.1 % (0-1); EOSINOPHILS # (AUTO) 0.2 X10'3 (0-0.9); EOSINOPHILS % (AUTO) 0.8 % (0-6); HEMATOCRIT 34.2 % (42.0-52.0); HEMOGLOBIN 11.5 g/dl (14.0-17.9); LYMPHOCYTES # (AUTO) 1.3 X10'3 (1.1-4.8); MEAN CORPUSCULAR HEMOGLOBIN 32.7 PG (27.0-31.0); MEAN CORPUSCULAR HGB CONC 33.6 % (33.0-36.5); MEAN CORPUSCULAR VOLUME 97.2 FL (78-98); MEAN PLATELET VOLUME 7.1 FL (7.4-10.4); MONOCYTES # (AUTO) 1.4 X10'3 (0-0.9); MONOCYTES % (AUTO) 6.5 % (2-12); NEUTROPHILS # (AUTO) 18.2 X10'3 (1.8-7.7); NEUTROPHILS % (AUTO) 86.6 % (42-75); PLATELET COUNT 351 X10'3 (140-440); RED BLOOD COUNT 3.52 X10'6 (4.70-6.10); RED CELL DISTRIBUTION WIDTH 16.4 % (11.5-14.5)
[2018-09-08 07:09] LABS: ALANINE AMINOTRANSFERASE 30 U/L (12-78); ALBUMIN 1.6 G/DL (3.4-5.0); ALBUMIN/GLOBULIN RATIO 0.5 (1.1-1.5); ALKALINE PHOSPHATASE 168 IU/L (46-116); ANION GAP 3 (8-16); ASPARTATE AMINO TRANSFERASE 29 U/L (10-37); BILIRUBIN,TOTAL 0.3 MG/DL (0.1-1.0); BLOOD UREA NITROGEN 20 MG/DL (7-18); BUN/CREATININE RATIO 27.8 (5.4-32.0); CALCIUM 7.6 MG/DL (8.5-10.1); CHLORIDE 103 MMOL/L (99-107); CREATININE 0.72 MG/DL (0.60-1.10); GLUCOSE 68 MG/DL (70-104); MAGNESIUM 1.8 MG/DL (1.5-2.4); POTASSIUM 3.9 MMOL/L (3.5-5.1); SODIUM 136 MMOL/L (135-145); TOTAL CARBON DIOXIDE 30.4 MMOL/L (24-32); eGFR > 90 ML/MIN
[2018-09-08] MEDS: dextrose ORAL solution 15 GM/59 ML bottle PO PRN (07:25)
[2018-09-08] MEDS: ascorbic acid 500mg tablet PO SCH (07:33)
[2018-09-08] MEDS: lactobacillus rhamnosus 10,000 MMU CELLS/CAPSULE PO SCH ×2 (07:33→19:37)
[2018-09-08] MEDS: busPIRone 5mg tablet PO SCH ×2 (07:33→19:37)
[2018-09-08] MEDS: calcium carbonate/vitamin D3 tablet PO SCH ×2 (07:33→19:37)
[2018-09-08] MEDS: docusate sod 100mg capsule PO SCH ×2 (07:34→19:37)
[2018-09-08] MEDS: oxybutynin 5mg tablet PO SCH (07:34)
[2018-09-08] MEDS: amiodarone 200mg tablet PO SCH ×2 (07:35→19:37)
[2018-09-08] MEDS: methylPREDNISolone sod succ 125mg/2ml vial IV SCH (07:35)
[2018-09-08] MEDS: pantoprazole 40 MG vial IV SCH (07:36)
[2018-09-08] MEDS: enoxaparin 40mg/0.4ml syringe SUBCUT SCH (07:36)
[2018-09-08 08:22] LABS: INR 1.3 INR; PARTIAL THROMBOPLASTIN TIME 27 SECONDS (22-32); PROTHROMBIN TIME 12.3 SECONDS (9.0-12.0)
[2018-09-08] MEDS ORDERED: methylnaltrexone br 12mg/0.6ml inj***SubQ only SQ ONE (08:30)
[2018-09-08 09:33] LABS: LYMPHOCYTES % (MANUAL) 7.5 % (21-51); METAMYLEOCYTES% (MANUAL) 3.5 % (0-0); NEUTROPHILS % (MANUAL) 69.5 % (42-75); PROMYELOCYTES % (MANUAL) 2.5 % (0-0); TOTAL CELLS COUNTED 200
[2018-09-08 09:35] LABS: ANISOCYTOSIS 1+; PLATELET ESTIMATE NORMAL
[2018-09-08 09:36] LABS: TOXIC VACUOLATION 1+
[2018-09-08 09:37] LABS: TARGET CELLS FEW
[2018-09-08 09:43] LABS: SMUDGE CELLS 1+
[2018-09-08] MEDS: PARoxetine 20mg tablet PO SCH (09:44)
[2018-09-08] MEDS: VANCOMYCIN 750MG IV in NS 250 ML IV SCH ×3 (09:44→22:28)
[2018-09-08 11:00] VITALS: BP 110/69
[2018-09-08 15:00] VITALS: BP 115/70
[2018-09-08] MEDS: NUT.TX.GLUC.INTOLER,LAC-FR,SOY (GLUCERNA) 237 ML PO SCH (18:00)
[2018-09-08 19:00] VITALS: BP 135/79
[2018-09-08] MEDS: insulin glargine (Lantus) pen - multi-dose SQ SCH (21:00)
[2018-09-08 23:00] VITALS: BP 107/66
[2018-09-09] MEDS: CefTRIAXone 2gm/D5W 50ml 50 ML IV SCH (00:18)
[2018-09-09] MEDS: clindamycin 600mg/D5W 50ml 50 ML IV SCH ×4 (01:47→20:59)
[2018-09-09 03:00] VITALS: BP 135/72
[2018-09-09] MEDS: ipratropium/albuterol 3ml nebule NEB SCH ×6 (03:45→23:45)
[2018-09-09 05:15] LABS: BASOPHILS % (AUTO) 0.1 % (0-1); EOSINOPHILS # (AUTO) 0.5 X10'3 (0-0.9); EOSINOPHILS % (AUTO) 2.6 % (0-6); HEMATOCRIT 34.2 % (42.0-52.0); HEMOGLOBIN 11.4 g/dl (14.0-17.9); LYMPHOCYTES # (AUTO) 1.4 X10'3 (1.1-4.8); LYMPHOCYTES % (AUTO) 7.2 % (21-51); MEAN CORPUSCULAR HEMOGLOBIN 32.7 PG (27.0-31.0); MEAN CORPUSCULAR HGB CONC 33.4 % (33.0-36.5); MEAN CORPUSCULAR VOLUME 97.9 FL (78-98); MEAN PLATELET VOLUME 7.4 FL (7.4-10.4); MONOCYTES # (AUTO) 1.4 X10'3 (0-0.9); MONOCYTES % (AUTO) 6.8 % (2-12); NEUTROPHILS # (AUTO) 16.7 X10'3 (1.8-7.7); NEUTROPHILS % (AUTO) 83.3 % (42-75); PLATELET COUNT 339 X10'3 (140-440); RED BLOOD COUNT 3.49 X10'6 (4.70-6.10); RED CELL DISTRIBUTION WIDTH 16.3 % (11.5-14.5)
[2018-09-09 05:22] LABS: ALANINE AMINOTRANSFERASE 22 U/L (12-78); ALBUMIN 1.6 G/DL (3.4-5.0); ALBUMIN/GLOBULIN RATIO 0.5 (1.1-1.5); ALKALINE PHOSPHATASE 174 IU/L (46-116); ANION GAP 5 (8-16); ASPARTATE AMINO TRANSFERASE 21 U/L (10-37); BILIRUBIN,TOTAL 0.2 MG/DL (0.1-1.0); BLOOD UREA NITROGEN 19 MG/DL (7-18); BUN/CREATININE RATIO 23.8 (5.4-32.0); CALCIUM 7.7 MG/DL (8.5-10.1); CHLORIDE 100 MMOL/L (99-107); GLUCOSE 120 MG/DL (70-104); MAGNESIUM 1.8 MG/DL (1.5-2.4); SODIUM 136 MMOL/L (135-145); TOTAL CARBON DIOXIDE 30.7 MMOL/L (24-32); TOTAL PROTEIN 4.9 G/DL (6.4-8.2); eGFR > 90 ML/MIN
[2018-09-09 05:26] LABS: INR 1.2 INR; PARTIAL THROMBOPLASTIN TIME 27 SECONDS (22-32)
[2018-09-09 06:00] VITALS: BP 104/64
[2018-09-09] MEDS: busPIRone 5mg tablet PO SCH ×2 (07:34→20:59)
[2018-09-09] MEDS: PARoxetine 20mg tablet PO SCH (07:34)
[2018-09-09] MEDS: docusate sod 100mg capsule PO SCH ×2 (07:35→20:59)
[2018-09-09] MEDS: amiodarone 200mg tablet PO SCH ×2 (07:35→20:00)
[2018-09-09] MEDS: ascorbic acid 500mg tablet PO SCH (07:35)
[2018-09-09] MEDS: pantoprazole 40 MG vial IV SCH (07:35)
[2018-09-09] MEDS: methylPREDNISolone sod succ 125mg/2ml vial IV SCH (07:35)
[2018-09-09] MEDS: calcium carbonate/vitamin D3 tablet PO SCH ×2 (07:35→21:00)
[2018-09-09] MEDS: lactobacillus rhamnosus 10,000 MMU CELLS/CAPSULE PO SCH ×2 (07:35→21:00)
[2018-09-09] MEDS: enoxaparin 40mg/0.4ml syringe SUBCUT SCH (07:35)
[2018-09-09] MEDS: magnesium hydroxide 30ml (MOM) UD suspension PO PRN (07:50)
[2018-09-09] MEDS: NUT.TX.GLUC.INTOLER,LAC-FR,SOY (GLUCERNA) 237 ML PO SCH ×3 (07:58→18:00)
[2018-09-09 08:28] LABS: ANISOCYTOSIS 1+; PLATELET ESTIMATE NORMAL; TOTAL CELLS COUNTED 100
[2018-09-09] MEDS: VANCOMYCIN 750MG IV in NS 250 ML IV SCH (09:13)
[2018-09-09 11:00] VITALS: BP 97/58
[2018-09-09] MEDS: insulin Lispro (HumaLOG) vial - multi-dose SQ SCH (13:00)
[2018-09-09 15:00] VITALS: BP 105/64
[2018-09-09] MEDS: HYDROcodone/acetaminophen 10/325mg tab PO PRN ×2 (15:08→21:00)
[2018-09-09 19:00] VITALS: BP 104/69
[2018-09-09] MEDS: insulin glargine (Lantus) pen - multi-dose SQ SCH (20:57)
[2018-09-09 23:00] VITALS: BP 92/56
[2018-09-10] MEDS: VANCOMYCIN 750MG IV in NS 250 ML IV SCH ×3 (00:40→22:00)
[2018-09-10] MEDS: CefTRIAXone 2gm/D5W 50ml 50 ML IV SCH (02:54)
[2018-09-10 03:00] VITALS: BP 92/51
[2018-09-10] MEDS: ipratropium/albuterol 3ml nebule NEB SCH ×6 (03:43→23:54)
[2018-09-10] MEDS: clindamycin 600mg/D5W 50ml 50 ML IV SCH ×4 (04:06→20:33)
[2018-09-10 05:28] LABS: INR 1.1 INR; PARTIAL THROMBOPLASTIN TIME 27 SECONDS (22-32); PROTHROMBIN TIME 11.4 SECONDS (9.0-12.0)
[2018-09-10 05:43] LABS: ALANINE AMINOTRANSFERASE 25 U/L (12-78); ALBUMIN 1.6 G/DL (3.4-5.0); ALBUMIN/GLOBULIN RATIO 0.5 (1.1-1.5); ALKALINE PHOSPHATASE 162 IU/L (46-116); ANION GAP 3 (8-16); ASPARTATE AMINO TRANSFERASE 18 U/L (10-37); BILIRUBIN,TOTAL 0.2 MG/DL (0.1-1.0); BLOOD UREA NITROGEN 20 MG/DL (7-18); CALCIUM 7.3 MG/DL (8.5-10.1); CHLORIDE 101 MMOL/L (99-107); GLUCOSE 107 MG/DL (70-104); MAGNESIUM 1.8 MG/DL (1.5-2.4); PHOSPHORUS 2.8 MG/DL (2.3-4.5); POTASSIUM 4.3 MMOL/L (3.5-5.1); SODIUM 137 MMOL/L (135-145); TOTAL CARBON DIOXIDE 33.4 MMOL/L (24-32); TOTAL PROTEIN 4.8 G/DL (6.4-8.2); eGFR > 90 ML/MIN
[2018-09-10 05:50] LABS: BASOPHILS % (AUTO) 0 % (0-1); EOSINOPHILS # (AUTO) 0.4 X10'3 (0-0.9); EOSINOPHILS % (AUTO) 2.3 % (0-6); HEMATOCRIT 32.3 % (42.0-52.0); HEMOGLOBIN 10.7 g/dl (14.0-17.9); LYMPHOCYTES # (AUTO) 1.4 X10'3 (1.1-4.8); LYMPHOCYTES % (AUTO) 8.5 % (21-51); MEAN CORPUSCULAR HEMOGLOBIN 32.6 PG (27.0-31.0); MEAN CORPUSCULAR HGB CONC 33.3 % (33.0-36.5); MEAN CORPUSCULAR VOLUME 98.1 FL (78-98); MEAN PLATELET VOLUME 7.3 FL (7.4-10.4); MONOCYTES # (AUTO) 1.3 X10'3 (0-0.9); MONOCYTES % (AUTO) 7.9 % (2-12); NEUTROPHILS # (AUTO) 13.5 X10'3 (1.8-7.7); NEUTROPHILS % (AUTO) 81.3 % (42-75); PLATELET COUNT 310 X10'3 (140-440); RED BLOOD COUNT 3.29 X10'6 (4.70-6.10); WHITE BLOOD COUNT 16.6 X10'3 (4.5-11.0)
[2018-09-10 06:58] VITALS: BP 109/63
[2018-09-10] MEDS: ascorbic acid 500mg tablet PO SCH (08:07)
[2018-09-10] MEDS: docusate sod 100mg capsule PO SCH ×2 (08:07→20:33)
[2018-09-10] MEDS: calcium carbonate/vitamin D3 tablet PO SCH ×2 (08:07→20:33)
[2018-09-10] MEDS: PARoxetine 20mg tablet PO SCH (08:07)
[2018-09-10] MEDS: pantoprazole 40 MG vial IV SCH (08:07)
[2018-09-10] MEDS: amiodarone 200mg tablet PO SCH ×2 (08:07→20:33)
[2018-09-10] MEDS: lactobacillus rhamnosus 10,000 MMU CELLS/CAPSULE PO SCH ×2 (08:07→20:33)
[2018-09-10] MEDS: busPIRone 5mg tablet PO SCH ×2 (08:07→20:33)
[2018-09-10] MEDS: enoxaparin 40mg/0.4ml syringe SUBCUT SCH (08:08)
[2018-09-10] MEDS: NUT.TX.GLUC.INTOLER,LAC-FR,SOY (GLUCERNA) 237 ML PO SCH ×3 (08:17→18:24)
[2018-09-10 10:37] LABS: BANDS% (MANUAL) 5.5 % (0-10); LYMPHOCYTES % (MANUAL) 12.5 % (21-51); METAMYLEOCYTES% (MANUAL) 1.5 % (0-0); MONOCYTES % (MANUAL) 7.5 % (2-12); NEUTROPHILS % (MANUAL) 68.5 % (42-75); PLATELET ESTIMATE NORMAL; PROMYELOCYTES % (MANUAL) 0.5 % (0-0); TOTAL CELLS COUNTED 200
[2018-09-10 10:38] LABS: ANISOCYTOSIS 1+; TOXIC GRANULATION 1+
[2018-09-10 11:52] VITALS: BP 102/60
[2018-09-10 15:00] VITALS: BP 105/57
[2018-09-10 18:00] VITALS: BP 109/58
[2018-09-10] MEDS: HYDROcodone/acetaminophen 10/325mg tab PO PRN (20:40)
[2018-09-10 22:00] VITALS: BP 103/60
[2018-09-10] MEDS: insulin glargine (Lantus) pen - multi-dose SQ SCH (22:03)
[2018-09-11] MEDS: CefTRIAXone 2gm/D5W 50ml 50 ML IV SCH (01:30)
[2018-09-11 02:00] VITALS: BP 109/57
[2018-09-11] MEDS: clindamycin 600mg/D5W 50ml 50 ML IV SCH ×4 (02:52→19:47)
[2018-09-11] MEDS: ipratropium/albuterol 3ml nebule NEB SCH ×6 (04:31→23:23)
[2018-09-11 05:11] LABS: BASOPHILS % (AUTO) 0 % (0-1); EOSINOPHILS # (AUTO) 0.4 X10'3 (0-0.9); EOSINOPHILS % (AUTO) 2.4 % (0-6); HEMATOCRIT 33.3 % (42.0-52.0); HEMOGLOBIN 10.9 g/dl (14.0-17.9); LYMPHOCYTES # (AUTO) 1.3 X10'3 (1.1-4.8); LYMPHOCYTES % (AUTO) 7.5 % (21-51); MEAN CORPUSCULAR HEMOGLOBIN 32.2 PG (27.0-31.0); MEAN CORPUSCULAR HGB CONC 32.8 % (33.0-36.5); MEAN CORPUSCULAR VOLUME 98.2 FL (78-98); MEAN PLATELET VOLUME 7.2 FL (7.4-10.4); MONOCYTES # (AUTO) 1.3 X10'3 (0-0.9); MONOCYTES % (AUTO) 7.7 % (2-12); NEUTROPHILS % (AUTO) 82.4 % (42-75); PLATELET COUNT 273 X10'3 (140-440); RED BLOOD COUNT 3.39 X10'6 (4.70-6.10); RED CELL DISTRIBUTION WIDTH 16.3 % (11.5-14.5)
[2018-09-11 05:30] LABS: ALANINE AMINOTRANSFERASE 23 U/L (12-78); ALBUMIN 1.6 G/DL (3.4-5.0); ALBUMIN/GLOBULIN RATIO 0.5 (1.1-1.5); ALKALINE PHOSPHATASE 151 IU/L (46-116); ANION GAP 3 (8-16); ASPARTATE AMINO TRANSFERASE 20 U/L (10-37); BILIRUBIN,TOTAL 0.3 MG/DL (0.1-1.0); BLOOD UREA NITROGEN 17 MG/DL (7-18); BUN/CREATININE RATIO 24.6 (5.4-32.0); CALCIUM 7.2 MG/DL (8.5-10.1); CHLORIDE 101 MMOL/L (99-107); CREATININE 0.69 MG/DL (0.60-1.10); GLUCOSE 69 MG/DL (70-104); MAGNESIUM 1.7 MG/DL (1.5-2.4); PHOSPHORUS 2.6 MG/DL (2.3-4.5); SODIUM 136 MMOL/L (135-145); TOTAL CARBON DIOXIDE 32.4 MMOL/L (24-32); TOTAL PROTEIN 4.7 G/DL (6.4-8.2); eGFR > 90 ML/MIN
[2018-09-11 05:31] LABS: INR 1.1 INR; PARTIAL THROMBOPLASTIN TIME 28 SECONDS (22-32); PROTHROMBIN TIME 11.4 SECONDS (9.0-12.0)
[2018-09-11 06:30] VITALS: BP 113/64
[2018-09-11] MEDS: dextrose ORAL solution 15 GM/59 ML bottle PO PRN (07:12)
[2018-09-11] MEDS: pantoprazole 40 MG vial IV SCH (07:59)
[2018-09-11] MEDS: busPIRone 5mg tablet PO SCH ×2 (07:59→19:50)
[2018-09-11] MEDS: calcium carbonate/vitamin D3 tablet PO SCH ×2 (08:00→19:49)
[2018-09-11] MEDS: lactobacillus rhamnosus 10,000 MMU CELLS/CAPSULE PO SCH ×2 (08:00→19:50)
[2018-09-11] MEDS: docusate sod 100mg capsule PO SCH ×2 (08:00→19:50)
[2018-09-11] MEDS: amiodarone 200mg tablet PO SCH ×2 (08:00→19:50)
[2018-09-11] MEDS: NUT.TX.GLUC.INTOLER,LAC-FR,SOY (GLUCERNA) 237 ML PO SCH ×3 (08:00→18:04)
[2018-09-11] MEDS: ascorbic acid 500mg tablet PO SCH (08:01)
[2018-09-11] MEDS: PARoxetine 20mg tablet PO SCH (08:02)
[2018-09-11] MEDS: enoxaparin 40mg/0.4ml syringe SUBCUT SCH (08:03)
[2018-09-11 09:57] LABS: TOTAL CELLS COUNTED 100
[2018-09-11 09:58] LABS: ANISOCYTOSIS 1+; HYPOCHROMASIA 1+; PLATELET ESTIMATE NORMAL; POLYCHROMASIA 1+; TARGET CELLS 1+; TOXIC GRANULATION 2+
[2018-09-11] MEDS: VANCOMYCIN 750MG IV in NS 250 ML IV SCH ×2 (10:32→20:58)
[2018-09-11 11:30] VITALS: BP 107/64
[2018-09-11 15:30] VITALS: BP 96/61
[2018-09-11 18:00] VITALS: BP 99/64
[2018-09-11] MEDS: magnesium hydroxide 30ml (MOM) UD suspension PO PRN (18:04)
[2018-09-11] MEDS: HYDROcodone/acetaminophen 10/325mg tab PO PRN (19:58)
[2018-09-11] MEDS: insulin glargine (Lantus) pen - multi-dose SQ SCH (20:58)
[2018-09-11 22:00] VITALS: BP 99/54
[2018-09-12] MEDS: CefTRIAXone 2gm/D5W 50ml 50 ML IV SCH (00:17)
[2018-09-12 02:00] VITALS: BP 104/63
[2018-09-12] MEDS: clindamycin 600mg/D5W 50ml 50 ML IV SCH ×4 (02:20→20:49)
[2018-09-12] MEDS: ipratropium/albuterol 3ml nebule NEB SCH ×6 (02:44→23:24)
[2018-09-12 06:00] VITALS: BP 95/59
[2018-09-12 06:41] LABS: BASOPHILS % (AUTO) 0 % (0-1); EOSINOPHILS # (AUTO) 0.5 X10'3 (0-0.9); EOSINOPHILS % (AUTO) 2.3 % (0-6); HEMATOCRIT 31.5 % (42.0-52.0); HEMOGLOBIN 10.4 g/dl (14.0-17.9); LYMPHOCYTES # (AUTO) 1.4 X10'3 (1.1-4.8); LYMPHOCYTES % (AUTO) 6.6 % (21-51); MEAN CORPUSCULAR HEMOGLOBIN 32.3 PG (27.0-31.0); MEAN CORPUSCULAR HGB CONC 32.9 % (33.0-36.5); MEAN CORPUSCULAR VOLUME 97.9 FL (78-98); MEAN PLATELET VOLUME 7.6 FL (7.4-10.4); MONOCYTES # (AUTO) 1.7 X10'3 (0-0.9); MONOCYTES % (AUTO) 8.2 % (2-12); NEUTROPHILS # (AUTO) 17.1 X10'3 (1.8-7.7); NEUTROPHILS % (AUTO) 82.9 % (42-75); PLATELET COUNT 214 X10'3 (140-440); RED BLOOD COUNT 3.22 X10'6 (4.70-6.10); RED CELL DISTRIBUTION WIDTH 16.7 % (11.5-14.5); WHITE BLOOD COUNT 20.7 X10'3 (4.5-11.0)
[2018-09-12 06:45] LABS: ALANINE AMINOTRANSFERASE 25 U/L (12-78); ALBUMIN 1.5 G/DL (3.4-5.0); ALBUMIN/GLOBULIN RATIO 0.5 (1.1-1.5); ALKALINE PHOSPHATASE 168 IU/L (46-116); ANION GAP 3 (8-16); ASPARTATE AMINO TRANSFERASE 22 U/L (10-37); BILIRUBIN,TOTAL 0.4 MG/DL (0.1-1.0); BLOOD UREA NITROGEN 18 MG/DL (7-18); BUN/CREATININE RATIO 26.9 (5.4-32.0); CHLORIDE 99 MMOL/L (99-107); CREATININE 0.67 MG/DL (0.60-1.10); GLUCOSE 111 MG/DL (70-104); MAGNESIUM 1.9 MG/DL (1.5-2.4); PHOSPHORUS 2.7 MG/DL (2.3-4.5); POTASSIUM 3.9 MMOL/L (3.5-5.1); SODIUM 134 MMOL/L (135-145); TOTAL CARBON DIOXIDE 32.4 MMOL/L (24-32); TOTAL PROTEIN 4.7 G/DL (6.4-8.2); eGFR > 90 ML/MIN
[2018-09-12 07:06] LABS: INR 1.2 INR; PARTIAL THROMBOPLASTIN TIME 30 SECONDS (22-32); PROTHROMBIN TIME 11.6 SECONDS (9.0-12.0)
[2018-09-12] MEDS: busPIRone 5mg tablet PO SCH ×2 (07:54→20:49)
[2018-09-12] MEDS: PARoxetine 20mg tablet PO SCH (07:54)
[2018-09-12] MEDS: amiodarone 200mg tablet PO SCH ×2 (07:54→20:49)
[2018-09-12] MEDS: docusate sod 100mg capsule PO SCH ×2 (07:54→20:49)
[2018-09-12] MEDS: enoxaparin 40mg/0.4ml syringe SUBCUT SCH (07:55)
[2018-09-12] MEDS: lactobacillus rhamnosus 10,000 MMU CELLS/CAPSULE PO SCH ×2 (07:55→20:49)
[2018-09-12] MEDS: calcium carbonate/vitamin D3 tablet PO SCH ×2 (07:55→20:49)
[2018-09-12] MEDS: ascorbic acid 500mg tablet PO SCH (07:55)
[2018-09-12] MEDS: pantoprazole 40 MG vial IV SCH (07:55)
[2018-09-12] MEDS: VANCOMYCIN 750MG IV in NS 250 ML IV SCH ×2 (08:36→21:54)
[2018-09-12] MEDS: NUT.TX.GLUC.INTOLER,LAC-FR,SOY (GLUCERNA) 237 ML PO SCH ×3 (08:59→18:00)
[2018-09-12 11:00] VITALS: BP 101/64
[2018-09-12 15:00] VITALS: BP 91/46
[2018-09-12 18:00] VITALS: BP 145/72
[2018-09-12] MEDS: insulin glargine (Lantus) pen - multi-dose SQ SCH (21:00)
[2018-09-12 22:00] VITALS: BP 118/65
[2018-09-13] MEDS: CefTRIAXone 2gm/D5W 50ml 50 ML IV SCH (00:31)
[2018-09-13 02:00] VITALS: BP 96/57
[2018-09-13] MEDS: clindamycin 600mg/D5W 50ml 50 ML IV SCH ×2 (02:10→08:01)
[2018-09-13] MEDS: ipratropium/albuterol 3ml nebule NEB SCH ×3 (03:32→10:20)
[2018-09-13 05:04] LABS: BASOPHILS % (AUTO) 0 % (0-1); EOSINOPHILS # (AUTO) 0.3 X10'3 (0-0.9); EOSINOPHILS % (AUTO) 1.7 % (0-6); HEMATOCRIT 29.2 % (42.0-52.0); HEMOGLOBIN 9.8 g/dl (14.0-17.9); LYMPHOCYTES # (AUTO) 1.3 X10'3 (1.1-4.8); LYMPHOCYTES % (AUTO) 7.5 % (21-51); MEAN CORPUSCULAR HEMOGLOBIN 32.8 PG (27.0-31.0); MEAN CORPUSCULAR HGB CONC 33.4 % (33.0-36.5); MEAN PLATELET VOLUME 7.8 FL (7.4-10.4); MONOCYTES # (AUTO) 1.6 X10'3 (0-0.9); MONOCYTES % (AUTO) 8.9 % (2-12); NEUTROPHILS # (AUTO) 14.4 X10'3 (1.8-7.7); NEUTROPHILS % (AUTO) 81.9 % (42-75); PLATELET COUNT 212 X10'3 (140-440); RED BLOOD COUNT 2.98 X10'6 (4.70-6.10); RED CELL DISTRIBUTION WIDTH 16.5 % (11.5-14.5); WHITE BLOOD COUNT 17.6 X10'3 (4.5-11.0)
[2018-09-13 05:17] LABS: ALANINE AMINOTRANSFERASE 23 U/L (12-78); ALBUMIN 1.5 G/DL (3.4-5.0); ALBUMIN/GLOBULIN RATIO 0.5 (1.1-1.5); ALKALINE PHOSPHATASE 172 IU/L (46-116); ANION GAP 4 (8-16); ASPARTATE AMINO TRANSFERASE 18 U/L (10-37); BILIRUBIN,TOTAL 0.3 MG/DL (0.1-1.0); BLOOD UREA NITROGEN 17 MG/DL (7-18); CALCIUM 7.2 MG/DL (8.5-10.1); CHLORIDE 98 MMOL/L (99-107); CREATININE 0.68 MG/DL (0.60-1.10); GLUCOSE 112 MG/DL (70-104); MAGNESIUM 1.9 MG/DL (1.5-2.4); PHOSPHORUS 2.7 MG/DL (2.3-4.5); POTASSIUM 3.7 MMOL/L (3.5-5.1); SODIUM 134 MMOL/L (135-145); TOTAL CARBON DIOXIDE 31.9 MMOL/L (24-32); TOTAL PROTEIN 4.7 G/DL (6.4-8.2); eGFR > 90 ML/MIN
[2018-09-13 05:25] LABS: INR 1.1 INR; PARTIAL THROMBOPLASTIN TIME 31 SECONDS (22-32); PROTHROMBIN TIME 11.4 SECONDS (9.0-12.0)
[2018-09-13 06:00] VITALS: BP 107/58
[2018-09-13 07:18] LABS: ANISOCYTOSIS 1+; PLATELET ESTIMATE NORMAL; TOTAL CELLS COUNTED 100
[2018-09-13 07:19] LABS: SMUDGE CELLS 2+
[2018-09-13] MEDS: NUT.TX.GLUC.INTOLER,LAC-FR,SOY (GLUCERNA) 237 ML PO SCH ×2 (07:58→13:12)
[2018-09-13] MEDS: oxybutynin 5mg tablet PO SCH (08:00)
[2018-09-13] MEDS: PARoxetine 20mg tablet PO SCH (08:00)
[2018-09-13] MEDS: lactobacillus rhamnosus 10,000 MMU CELLS/CAPSULE PO SCH (08:00)
[2018-09-13] MEDS: docusate sod 100mg capsule PO SCH (08:00)
[2018-09-13] MEDS: busPIRone 5mg tablet PO SCH (08:00)
[2018-09-13] MEDS: calcium carbonate/vitamin D3 tablet PO SCH (08:00)
[2018-09-13] MEDS: amiodarone 200mg tablet PO SCH (08:00)
[2018-09-13] MEDS: pantoprazole 40 MG vial IV SCH (08:01)
[2018-09-13] MEDS: enoxaparin 40mg/0.4ml syringe SUBCUT SCH (08:01)
[2018-09-13] MEDS: ascorbic acid 500mg tablet PO SCH (08:01)
[2018-09-13] MEDS: VANCOMYCIN 750MG IV in NS 250 ML IV SCH (09:48)
[2018-09-13 11:00] VITALS: BP 105/60
[2018-09-13] MEDS ORDERED: AMIO200T40 PO (12:25)
== END 2018-09-13 14:32 | disposition home or self-care (01) | DRG 871 ==
LOC: ER 21:34 → ED HOLD 09-03 03:25 → CICU 2S 09-03 07:30 → PCU 3S 09-05 14:15
PROVIDERS: ADMIT Internal Medicine Critical Care Medicine
PROC: 5A09357 Assistance with Respiratory Ventilation, Less than 24 Consecutive Hours, Continuous Positive Airway Pressure (ICD-10-PCS; 2018-09-02)
PROC: B32T1ZZ Computerized Tomography (CT Scan) of Left Pulmonary Artery using Low Osmolar Contrast (ICD-10-PCS; 2018-09-02)
PROC: B3201ZZ Computerized Tomography (CT Scan) of Thoracic Aorta using Low Osmolar Contrast (ICD-10-PCS; 2018-09-02)
PROC: B32S1ZZ Computerized Tomography (CT Scan) of Right Pulmonary Artery using Low Osmolar Contrast (ICD-10-PCS; 2018-09-02)
PROC: 0WJ93ZZ Inspection of Right Pleural Cavity, Percutaneous Approach (ICD-10-PCS; 2018-09-02)
PROC: 0W9930Z Drainage of Right Pleural Cavity with Drainage Device, Percutaneous Approach (ICD-10-PCS; principal; 2018-09-03)
PROC: 5A09357 Assistance with Respiratory Ventilation, Less than 24 Consecutive Hours, Continuous Positive Airway Pressure (ICD-10-PCS; 2018-09-03)
DX: A41.9 Sepsis, unspecified organism (principal); J96.01 Acute respiratory failure with hypoxia; J18.1 Lobar pneumonia, unspecified organism; J90 Pleural effusion, not elsewhere classified; J44.0 Chronic obstructive pulmonary disease with (acute) lower respiratory infection; J44.1 Chronic obstructive pulmonary disease with (acute) exacerbation; I48.91 Unspecified atrial fibrillation; E11.9 Type 2 diabetes mellitus without complications; H91.90 Unspecified hearing loss, unspecified ear; G89.29 Other chronic pain; F17.200 Nicotine dependence, unspecified, uncomplicated; M10.9 Gout, unspecified; I11.0 Hypertensive heart disease with heart failure; I50.9 Heart failure, unspecified; B95.62 Methicillin resistant Staphylococcus aureus infection as the cause of diseases classified elsewhere; Z90.49 Acquired absence of other specified parts of digestive tract; Z88.1 Allergy status to other antibiotic agents; Z88.5 Allergy status to narcotic agent; Z88.0 Allergy status to penicillin; Z88.2 Allergy status to sulfonamides; Z79.899 Other long term (current) drug therapy; Z80.8 Family history of malignant neoplasm of other organs or systems; Z82.5 Family history of asthma and other chronic lower respiratory diseases; Z83.3 Family history of diabetes mellitus
CPT/HCPCS: 32554; 32555; 32557; 36415; 36600; 71045; 71275; 80053; 80202; 81001; 82040; 82042; 82803; 82945; 82948; 83036; 83605; 83615; 83735; 83880; 84100; 84145; 84155; 84157; 84484; 85018; 85025; 85027; 85379; 85384; 85610; 85730; 86885; 86900; 86901; 87040; 87070; 87075; 87102; 87502; 87503; 88108; 88305; 89051; 93005; 94640; 94660; 94760; 96365; 96367; 96368; 96375; 96376; 97110; 97116; 97161; 97530; 99291; C9113; G0378; J0131; J0153; J0696; J1650; J1815; J1956; J2060; J2920; J2930; J3370; J3490; J7030; Q9967

== ENCOUNTER 2018-09-17 09:38 | Emergency (ER) | payer MEDICARE, MEDICAID ==
[~2018-09-17] VITALS: Ht 170.2 cm; Wt 77.3 kg
[~2018-09-17 09:38] MED LIST changes: +AMIO200T40 PO
[2018-09-17 10:15] LABS: BASOPHILS # (AUTO) 0.1 X10'3 (0-0.2); BASOPHILS % (AUTO) 0.6 % (0-1); EOSINOPHILS # (AUTO) 0.1 X10'3 (0-0.9); EOSINOPHILS % (AUTO) 0.8 % (0-6); HEMATOCRIT 32.3 % (42.0-52.0); HEMOGLOBIN 10.8 g/dl (14.0-17.9); LYMPHOCYTES # (AUTO) 1.2 X10'3 (1.1-4.8); LYMPHOCYTES % (AUTO) 14.3 % (21-51); MEAN CORPUSCULAR HEMOGLOBIN 32.9 PG (27.0-31.0); MEAN CORPUSCULAR HGB CONC 33.4 % (33.0-36.5); MEAN CORPUSCULAR VOLUME 98.4 FL (78-98); MONOCYTES # (AUTO) 1.2 X10'3 (0-0.9); MONOCYTES % (AUTO) 13.7 % (2-12); NEUTROPHILS # (AUTO) 5.9 X10'3 (1.8-7.7); NEUTROPHILS % (AUTO) 70.6 % (42-75); PLATELET COUNT 308 X10'3 (140-440); RED BLOOD COUNT 3.28 X10'6 (4.70-6.10); WHITE BLOOD COUNT 8.5 X10'3 (4.5-11.0)
[2018-09-17 10:30] LABS: ALANINE AMINOTRANSFERASE 17 U/L (12-78); ALBUMIN 1.6 G/DL (3.4-5.0); ALBUMIN/GLOBULIN RATIO 0.4 (1.1-1.5); ALKALINE PHOSPHATASE 147 IU/L (46-116); ANION GAP 3 (8-16); ASPARTATE AMINO TRANSFERASE 13 U/L (10-37); BILIRUBIN,TOTAL 0.4 MG/DL (0.1-1.0); BLOOD UREA NITROGEN 10 MG/DL (7-18); BUN/CREATININE RATIO 18.2 (5.4-32.0); CALCIUM 7.5 MG/DL (8.5-10.1); CHLORIDE 97 MMOL/L (99-107); CREATININE 0.55 MG/DL (0.60-1.10); GLUCOSE 76 MG/DL (70-104); POTASSIUM 3.9 MMOL/L (3.5-5.1); SODIUM 133 MMOL/L (135-145); TOTAL CARBON DIOXIDE 32.9 MMOL/L (24-32); TOTAL PROTEIN 5.2 G/DL (6.4-8.2); eGFR > 90 ML/MIN
[2018-09-17 10:31] LABS: INR 1.2 INR; PROTHROMBIN TIME 11.8 SECONDS (9.0-12.0)
[2018-09-17] MEDS ORDERED: normal saline 1000ml 1,000 ML IV ONE (10:50)
[2018-09-17 11:09] LABS: LIPASE < 50 U/L (73-393)
[2018-09-17] MEDS ORDERED: iohexol 350MG/ML 100ml bottle IV ONE (11:44)
[2018-09-17 14:58] LABS: CLARITY,URINE CLEAR (Clear); COLOR,URINE YELLOW (Yellow); PH,URINE 8.5 (4.8-8.0); UA COLLECTION TYPE URINAL
[2018-09-17 14:59] LABS: GLUCOSE, URINE NEGATIVE (Neg); KETONES,URINE NEGATIVE (Neg); LEUKOCYTE ESTERASE ,URINE TRACE (Neg); NITRITES, URINE NEGATIVE (Neg); OCCULT BLOOD,URINE NEGATIVE (Neg); PROTEIN,URINE NEGATIVE (Neg); UROBILINOGEN,URINE 0.2 E.U/dL (0.2-1.0)
[2018-09-17 15:10] LABS: BACTERIA,URINE NONE SEEN /HPF (Neg); MUCUS STRANDS FEW /LPF (Neg); RBC,URINE 0-2 /HPF (0-2); SQUAMOUS EPITHELIAL CELL,UR FEW /LPF (FEW); WBC,URINE 0-4 /HPF (0-4)
[2018-09-17 15:19] VITALS: BP 123/67
[2018-09-18] MEDS ORDERED: MESSAGE TO NURSING PO NR (10:00)
== END 2018-09-17 15:22 | disposition home or self-care (01) ==
LOC: ER 09:39
DX: R10.84 Generalized abdominal pain (principal); K59.00 Constipation, unspecified; I11.0 Hypertensive heart disease with heart failure; I50.9 Heart failure, unspecified; J44.9 Chronic obstructive pulmonary disease, unspecified; E11.9 Type 2 diabetes mellitus without complications; G89.29 Other chronic pain; M10.9 Gout, unspecified; Z90.49 Acquired absence of other specified parts of digestive tract; Z98.890 Other specified postprocedural states; Z88.0 Allergy status to penicillin; Z88.2 Allergy status to sulfonamides; Z88.5 Allergy status to narcotic agent; Z79.899 Other long term (current) drug therapy
CPT/HCPCS: 36415; 71275; 74176; 80053; 81001; 83605; 83690; 84145; 85025; 85610; 87040; 87088; 93005; 99284; J7030; Q9967

== ENCOUNTER 2018-11-05 03:08 | Inpatient (IN) | payer MEDICARE, MEDICAID ==
[~2018-11-05] VITALS: Ht 170.2 cm; Wt 72.0 kg
[2018-11-05] MEDS ORDERED: normal saline 1000ML IV soln IVB ONE (04:15)
--- NOTE | 2018-11-05 04:55 | NUR ---
PT REQUESTED A URINARY CATHETER
[2018-11-05 04:58] LABS: BASOPHILS # (AUTO) 0.1 X10'3 (0-0.2); BASOPHILS % (AUTO) 0.9 % (0-1); EOSINOPHILS % (AUTO) 0.1 % (0-6); HEMATOCRIT 43.8 % (42.0-52.0); HEMOGLOBIN 14.7 g/dl (14.0-17.9); LYMPHOCYTES # (AUTO) 1.7 X10'3 (1.1-4.8); MEAN CORPUSCULAR HEMOGLOBIN 34.5 PG (27.0-31.0); MEAN CORPUSCULAR HGB CONC 33.5 g/dL (33.0-36.5); MEAN PLATELET VOLUME 7.5 FL (7.4-10.4); MONOCYTES # (AUTO) 0.7 X10'3 (0-0.9); NEUTROPHILS # (AUTO) 10.9 X10'3 (1.8-7.7); PLATELET COUNT 357 X10'3 (140-440); RED BLOOD COUNT 4.25 X10'6 (4.70-6.10); RED CELL DISTRIBUTION WIDTH 16.6 % (11.5-14.5); WHITE BLOOD COUNT 13.4 X10'3 (4.5-11.0)
[2018-11-05 05:13] LABS: ALANINE AMINOTRANSFERASE 23 U/L (12-78); ALBUMIN 2.9 G/DL (3.4-5.0); ALBUMIN/GLOBULIN RATIO 0.8 (1.1-1.5); ALKALINE PHOSPHATASE 74 IU/L (46-116); ANION GAP 10 (8-16); ASPARTATE AMINO TRANSFERASE 20 U/L (10-37); BILIRUBIN,TOTAL 0.8 MG/DL (0.1-1.0); BLOOD UREA NITROGEN 18 MG/DL (7-18); BUN/CREATININE RATIO 22.5 (5.4-32.0); CALCIUM 7.9 MG/DL (8.5-10.1); CHLORIDE 98 MMOL/L (99-107); GLUCOSE 141 MG/DL (70-104); POTASSIUM 3.9 MMOL/L (3.5-5.1); SODIUM 130 MMOL/L (135-145); TOTAL CARBON DIOXIDE 22.4 MMOL/L (24-32); TOTAL PROTEIN 6.5 G/DL (6.4-8.2); eGFR > 90 ML/MIN
[2018-11-05 05:20] LABS: INR 1.2 INR; MAGNESIUM 2.6 MG/DL (1.5-2.4)
[2018-11-05] MEDS ORDERED: furosemide 10 MG/1 ML 10ml inj IV ONE (05:50)
--- NOTE | 2018-11-05 05:54 | NUR ---
was just at the BS. Pt wants pain pill. Gave pt some water. He then asked for an emesis bag "I puked at home a little" He is not nauseated. He just wants a bag.
[2018-11-05] MEDS ORDERED: HYDROcodone/acetaminophen 10/325mg tab PO ONE (05:55)
[2018-11-05] MEDS ORDERED: methylPREDNISolone sod succ 125mg/2ml vial IV ONE (06:00)
[2018-11-05] MEDS ORDERED: ipratropium/albuterol 3ml nebule NEB ONE (06:00)
[2018-11-05 06:19] LABS: ANISOCYTOSIS 1+; PLATELET ESTIMATE NORMAL; TOTAL CELLS COUNTED 100
--- NOTE | 2018-11-05 06:34 | NUR ---
Assumed care of pt. Awaiting re-eval by GABE. Sleeping in [facility]. VSS. Will continue to monitor.
[2018-11-05] MEDS ORDERED: acetaminophen 325mg tablet PO PRN ×3 (07:20→17:50)
[2018-11-05] MEDS ORDERED: ondansetron/PF 4mg/2ml inj IV PRN ×2 (07:20→17:50)
[2018-11-05] MEDS ORDERED: mag hydrox/Alum hydrox/simeth 30ml oral suspension PO PRN ×2 (07:20→17:50)
[2018-11-05] MEDS ORDERED: magnesium hydroxide 30ml (MOM) UD suspension PO PRN ×2 (07:20→17:50)
[2018-11-05] MEDS ORDERED: MEGE400O2 PO (07:22)
[2018-11-05] MEDS ORDERED: TIOT18CA3 INH (07:22)
[2018-11-05] MEDS ORDERED: HYDR-3964 PO (07:22)
[2018-11-05] MEDS ORDERED: AMIO200T40 PO (12:39)
[2018-11-05] MEDS ORDERED: CYAN500T46 PO (12:43)
[2018-11-05] MEDS ORDERED: PARO30TA73 PO (12:43)
[2018-11-05] MEDS ORDERED: BUSP5TAB3 PO (12:43)
[2018-11-05] MEDS ORDERED: ASPI-611 PO (12:46)
[2018-11-05] MEDS ORDERED: LEVO100T PO (12:46)
[2018-11-05] MEDS ORDERED: MULT-933 PO (12:46)
[2018-11-05] MEDS ORDERED: SENN-162 PO (12:46)
[2018-11-05] MEDS ORDERED: ALB0.5UD IH (12:46)
[2018-11-05] MEDS ORDERED: nitroGLYCERIN 0.4mg SUBLingual tab SL PRN (14:15)
[2018-11-05] MEDS: PARoxetine 10mg tablet PO SCH (15:58)
[2018-11-05] MEDS: megestrol acetate 400mg/10ml UD oral suspension PO SCH (15:59)
[2018-11-05] MEDS ORDERED: PARoxetine 30mg tablet PO SCH (16:00)
[2018-11-05] MEDS ORDERED: potassium Cl 40MEQ/NS 500ml 500 ML IV PRN ×2 (17:50)
[2018-11-05] MEDS ORDERED: magnesium 4gm in 100ml NS 100 ML IV PRN (17:50)
[2018-11-05] MEDS ORDERED: magnesium Cl slow-release 64mg tablet PO PRN (17:50)
[2018-11-05] MEDS ORDERED: bisacodyl 10mg suppository rectal RC PRN (17:50)
[2018-11-05] MEDS ORDERED: diphenhydrAMINE 25mg capsule PO PRN (17:50)
[2018-11-05] MEDS ORDERED: potassium Cl 20 mEq SR tablet PO PRN ×2 (17:50)
[2018-11-05] MEDS ORDERED: HYDROcodone/acetaminophen 5mg/325mg tablet PO PRN (17:50)
[2018-11-05] MEDS: K and/or MAG REPLACEMENT MC SCH (17:50)
[2018-11-05] MEDS ORDERED: magnesium 2GM in 50ml NS 50 ML IV PRN (17:50)
--- NOTE | 2018-11-05 18:35 | NUR ---
I have received report from SHAHLA Dailey in ED and had the opportunity to ask questions and will assume patient care when pt arrives to unit.
--- NOTE | 2018-11-05 18:45 | NUR ---
Patient arrived to unit via gurney. Patient is alert and oriented, VSS
[2018-11-05 18:50] VITALS: BP 96/52
[2018-11-05] MEDS: ipratropium 0.5 MG/2.5ML nebule NEB SCH (19:00)
[2018-11-05] MEDS: docusate sod 250mg capsule PO SCH (19:07)
[2018-11-05] MEDS: sennosides 8.6mg tablet PO SCH (19:08)
[2018-11-05] MEDS: busPIRone 5mg tablet PO SCH (19:17)
[2018-11-05] MEDS: calcium carbonate/vitamin D3 tablet PO SCH (19:17)
[2018-11-05] MEDS: amiodarone 200mg tablet PO SCH (19:17)
[2018-11-05] MEDS: oxybutynin 5mg tablet PO SCH (19:17)
[2018-11-05] MEDS: methylPREDNISolone sod succ 125mg/2ml vial IV SCH (19:18)
[2018-11-05] MEDS: heparin, porcine 5000 units/ml vial SQ SCH (19:18)
[2018-11-05] MEDS: normal saline 1000ml 1,000 ML IV SCH (19:30)
[2018-11-05] MEDS: ipratropium/albuterol 3ml nebule NEB SCH ×2 (20:41→23:53)
[2018-11-05] MEDS ORDERED: temazepam 15mg capsule PO PRN (21:00)
[2018-11-05] MEDS: HYDROcodone/acetaminophen 10/325mg tab PO PRN (21:46)
[2018-11-05 22:07] LABS: CLARITY,URINE CLOUDY (Clear); COLOR,URINE AMBER (Yellow); GLUCOSE, URINE NEGATIVE (Neg); KETONES,URINE TRACE mg/dl (Neg); LEUKOCYTE ESTERASE ,URINE NEGATIVE (Neg); NITRITES, URINE NEGATIVE (Neg); OCCULT BLOOD,URINE LARGE (Neg); PH,URINE 6.5 (4.8-8.0); PROTEIN,URINE TRACE mg/dl (Neg); UROBILINOGEN,URINE 0.2 E.U/dL (0.2-1.0)
[2018-11-05 22:10] LABS: UA COLLECTION TYPE CLN CATCH MIDSTREAM
[2018-11-05 22:14] LABS: WBC,URINE 0-4 /HPF (0-4)
[2018-11-05 22:15] LABS: RBC,URINE 20-50 /HPF (0-2)
[2018-11-05 22:16] LABS: AMORPHOUS URATES 3+; BACTERIA,URINE NONE SEEN /HPF (Neg); MUCUS STRANDS MANY /LPF (Neg); SQUAMOUS EPITHELIAL CELL,UR FEW /LPF (FEW)
[2018-11-06] VITALS: BP 96/62
[2018-11-06] MEDS: methylPREDNISolone sod succ 125mg/2ml vial IV SCH ×4 (02:09→19:26)
[2018-11-06] MEDS: ipratropium/albuterol 3ml nebule NEB SCH ×6 (03:22→23:23)
[2018-11-06] MEDS: normal saline 1000ml 1,000 ML IV SCH ×2 (05:02→20:29)
[2018-11-06 06:01] LABS: ALANINE AMINOTRANSFERASE 23 U/L (12-78); ALBUMIN 2.7 G/DL (3.4-5.0); ALBUMIN/GLOBULIN RATIO 0.8 (1.1-1.5); ALKALINE PHOSPHATASE 63 IU/L (46-116); ANION GAP 10 (8-16); ASPARTATE AMINO TRANSFERASE 13 U/L (10-37); BILIRUBIN,TOTAL 0.4 MG/DL (0.1-1.0); BLOOD UREA NITROGEN 26 MG/DL (7-18); BUN/CREATININE RATIO 29.2 (5.4-32.0); CALCIUM 7.7 MG/DL (8.5-10.1); CHLORIDE 100 MMOL/L (99-107); CREATININE 0.89 MG/DL (0.60-1.10); GLUCOSE 210 MG/DL (70-104); MAGNESIUM 2.5 MG/DL (1.5-2.4); PHOSPHORUS 2.4 MG/DL (2.3-4.5); POTASSIUM 4.1 MMOL/L (3.5-5.1); SODIUM 131 MMOL/L (135-145); TOTAL CARBON DIOXIDE 20.8 MMOL/L (24-32); TOTAL PROTEIN 5.9 G/DL (6.4-8.2); eGFR 84 ML/MIN
[2018-11-06 06:05] LABS: BASOPHILS % (AUTO) 0.1 % (0-1); EOSINOPHILS % (AUTO) 0 % (0-6); HEMOGLOBIN 12.9 g/dl (14.0-17.9); LYMPHOCYTES # (AUTO) 0.6 X10'3 (1.1-4.8); LYMPHOCYTES % (AUTO) 8.6 % (21-51); MEAN CORPUSCULAR HEMOGLOBIN 34.8 PG (27.0-31.0); MEAN CORPUSCULAR HGB CONC 33.2 g/dL (33.0-36.5); MEAN CORPUSCULAR VOLUME 104.6 FL (78-98); MEAN PLATELET VOLUME 7.8 FL (7.4-10.4); MONOCYTES # (AUTO) 0.1 X10'3 (0-0.9); MONOCYTES % (AUTO) 1.9 % (2-12); NEUTROPHILS # (AUTO) 5.8 X10'3 (1.8-7.7); NEUTROPHILS % (AUTO) 89.4 % (42-75); PLATELET COUNT 347 X10'3 (140-440); RED BLOOD COUNT 3.73 X10'6 (4.70-6.10); RED CELL DISTRIBUTION WIDTH 16.4 % (11.5-14.5); WHITE BLOOD COUNT 6.5 X10'3 (4.5-11.0)
--- NOTE | 2018-11-06 06:06 | NUR ---
Problems reprioritized. Patient report given, questions answered & plan of care reviewed with SHAHLA Mullins.
--- NOTE | 2018-11-06 06:38 | NUR ---
Patient in room CRYSTAL 348. I have received report from SHAHLA Washington and had the opportunity to ask questions and assume patient care.
[2018-11-06 07:00] VITALS: BP 105/67
[2018-11-06] MEDS: ipratropium 0.5 MG/2.5ML nebule NEB SCH ×4 (07:00→19:00)
[2018-11-06] MEDS: K and/or MAG REPLACEMENT MC SCH (08:00)
[2018-11-06] MEDS: busPIRone 5mg tablet PO SCH ×2 (08:21→19:30)
[2018-11-06] MEDS: sennosides 8.6mg tablet PO SCH ×2 (08:21→19:29)
[2018-11-06] MEDS: amiodarone 200mg tablet PO SCH ×2 (08:21→19:29)
[2018-11-06] MEDS: calcium carbonate/vitamin D3 tablet PO SCH ×2 (08:21→19:29)
[2018-11-06] MEDS: aspirin 81mg tab.chew PO SCH (08:21)
[2018-11-06] MEDS: megestrol acetate 400mg/10ml UD oral suspension PO SCH (08:21)
[2018-11-06] MEDS: PARoxetine 10mg tablet PO SCH (08:21)
[2018-11-06] MEDS: cyanocobalamin 500mcg tablet PO SCH (08:21)
[2018-11-06] MEDS: multivitamins, therapeutics tablet PO SCH (08:21)
[2018-11-06] MEDS: docusate sod 250mg capsule PO SCH ×2 (08:21→19:29)
[2018-11-06] MEDS: pantoprazole 40mg Tablet.DR PO SCH (08:21)
[2018-11-06] MEDS: levoTHYROXINE 100mcg tablet PO SCH (08:21)
[2018-11-06] MEDS: ascorbic acid 500mg tablet PO SCH (08:21)
[2018-11-06] MEDS: oxybutynin 5mg tablet PO SCH ×2 (08:23→19:31)
[2018-11-06] MEDS: heparin, porcine 5000 units/ml vial SQ SCH ×2 (08:24→19:28)
[2018-11-06 11:00] VITALS: BP 100/59
--- NOTE | 2018-11-06 11:15 | NUR ---
DM Consult: A1C <7 not appropriate for ed at this time. Addendum: 11/06/18 at [address] Amended: Links added.
[2018-11-06] MEDS ORDERED: dextrose ORAL solution 15 GM/59 ML bottle PO PRN ×2 (17:10)
[2018-11-06] MEDS ORDERED: dextrose 50%-water 50ml dispensing syringe IV PRN ×2 (17:10)
[2018-11-06] MEDS ORDERED: MESSAGE TO PHARMACY PO ONE (17:10)
[2018-11-06] MEDS ORDERED: glucagon, human recombinant 1mg kit SUBCUT PRN (17:10)
[2018-11-06 18:00] VITALS: BP 113/62
--- NOTE | 2018-11-06 18:30 | NUR ---
Patient in room [facility]YSTAL 348. I have received report from Susanna GALE and had the opportunity to ask questions and assume patient care. Patient finished with dinner, will return to provide insulin. Will continue to monitor.
--- NOTE | 2018-11-06 18:39 | NUR ---
Problems reprioritized. Patient report given, questions answered & plan of care reviewed with SHAHLA Zhang.
[2018-11-06] MEDS: insulin Lispro (HumaLOG) vial - multi-dose SQ SCH (18:50)
[2018-11-06] MEDS: furosemide 10 MG/1 ML 10ml inj IV ONE ×2 (18:58→19:26)
[2018-11-06] MEDS: HYDROcodone/acetaminophen 10/325mg tab PO PRN (19:31)
--- NOTE | 2018-11-06 20:30 | NUR ---
Problems reprioritized. Patient report given, questions answered & plan of care reviewed with Judith GALE. Will continue to monitor.
--- NOTE | 2018-11-06 20:31 | NUR ---
Patient in room [facility]YSTAL 348. I have received report from Leatha GALE and had the opportunity to ask questions and assume patient care.
[2018-11-06] MEDS: insulin glargine (Lantus) pen - multi-dose SQ SCH (21:29)
[2018-11-07] VITALS: BP 104/63
[2018-11-07] MEDS: methylPREDNISolone sod succ 125mg/2ml vial IV SCH ×4 (01:45→19:51)
[2018-11-07] MEDS: ipratropium/albuterol 3ml nebule NEB SCH ×6 (03:00→23:41)
[2018-11-07 05:43] LABS: ALANINE AMINOTRANSFERASE 21 U/L (12-78); ALKALINE PHOSPHATASE 57 IU/L (46-116); ANION GAP 11 (8-16); ASPARTATE AMINO TRANSFERASE 14 U/L (10-37); BILIRUBIN,TOTAL 0.4 MG/DL (0.1-1.0); BLOOD UREA NITROGEN 32 MG/DL (7-18); BUN/CREATININE RATIO 30.2 (5.4-32.0); CALCIUM 8.1 MG/DL (8.5-10.1); CHLORIDE 100 MMOL/L (99-107); CREATININE 1.06 MG/DL (0.60-1.10); GLUCOSE 169 MG/DL (70-104); MAGNESIUM 2.4 MG/DL (1.5-2.4); PHOSPHORUS 2.9 MG/DL (2.3-4.5); POTASSIUM 3.8 MMOL/L (3.5-5.1); SODIUM 133 MMOL/L (135-145); TOTAL CARBON DIOXIDE 22.5 MMOL/L (24-32); eGFR 69 ML/MIN
--- NOTE | 2018-11-07 06:31 | NUR ---
Problems reprioritized. Patient report given, questions answered & plan of care reviewed with Dominga GALE.
[2018-11-07 06:32] LABS: BASOPHILS % (AUTO) 0 % (0-1); EOSINOPHILS % (AUTO) 0 % (0-6); HEMATOCRIT 38.4 % (42.0-52.0); HEMOGLOBIN 12.9 g/dl (14.0-17.9); LYMPHOCYTES # (AUTO) 0.7 X10'3 (1.1-4.8); LYMPHOCYTES % (AUTO) 5.8 % (21-51); MEAN CORPUSCULAR HEMOGLOBIN 35.5 PG (27.0-31.0); MEAN CORPUSCULAR HGB CONC 33.8 g/dL (33.0-36.5); MEAN PLATELET VOLUME 7.8 FL (7.4-10.4); MONOCYTES # (AUTO) 0.6 X10'3 (0-0.9); NEUTROPHILS % (AUTO) 89.2 % (42-75); PLATELET COUNT 345 X10'3 (140-440); RED BLOOD COUNT 3.65 X10'6 (4.70-6.10); RED CELL DISTRIBUTION WIDTH 17.2 % (11.5-14.5); WHITE BLOOD COUNT 12.3 X10'3 (4.5-11.0)
[2018-11-07] MEDS: ipratropium 0.5 MG/2.5ML nebule NEB SCH (07:00)
[2018-11-07 07:30] VITALS: BP 109/72
[2018-11-07] MEDS: K and/or MAG REPLACEMENT MC SCH (08:00)
[2018-11-07] MEDS: insulin Lispro (HumaLOG) vial - multi-dose SQ SCH ×2 (08:36→19:44)
[2018-11-07] MEDS: multivitamins, therapeutics tablet PO SCH (08:39)
[2018-11-07] MEDS: ascorbic acid 500mg tablet PO SCH (08:39)
[2018-11-07] MEDS: sennosides 8.6mg tablet PO SCH ×2 (08:39→19:53)
[2018-11-07] MEDS: cyanocobalamin 500mcg tablet PO SCH (08:39)
[2018-11-07] MEDS: busPIRone 5mg tablet PO SCH ×2 (08:40→19:53)
[2018-11-07] MEDS: aspirin 81mg tab.chew PO SCH (08:41)
[2018-11-07] MEDS: calcium carbonate/vitamin D3 tablet PO SCH ×2 (08:41→19:52)
[2018-11-07] MEDS: pantoprazole 40mg Tablet.DR PO SCH (08:41)
[2018-11-07] MEDS: docusate sod 250mg capsule PO SCH ×2 (08:42→19:52)
[2018-11-07] MEDS: levoTHYROXINE 100mcg tablet PO SCH (08:42)
[2018-11-07] MEDS: amiodarone 200mg tablet PO SCH ×2 (08:42→19:52)
[2018-11-07] MEDS: PARoxetine 10mg tablet PO SCH (08:42)
[2018-11-07] MEDS: oxybutynin 5mg tablet PO SCH ×2 (08:42→19:52)
[2018-11-07] MEDS: furosemide 40mg/4ml inj IV SCH ×2 (08:46→19:46)
[2018-11-07] MEDS: heparin, porcine 5000 units/ml vial SQ SCH ×2 (08:47→19:47)
[2018-11-07] MEDS: megestrol acetate 400mg/10ml UD oral suspension PO SCH (08:53)
[2018-11-07] MEDS: normal saline 1000ml 1,000 ML IV SCH ×2 (09:49→18:26)
[2018-11-07 12:26] VITALS: BP 100/65
--- NOTE | 2018-11-07 18:03 | NUR ---
Problems reprioritized. Patient report given, questions answered & plan of care reviewed with SHAHLA Almaguer.
--- NOTE | 2018-11-07 19:19 | NUR ---
Patient in room [facility]YSTAL 348. I have received report from Dominga GALE and had the opportunity to ask questions and assume patient care.
[2018-11-07] MEDS: HYDROcodone/acetaminophen 10/325mg tab PO PRN (19:52)
[2018-11-07 20:00] VITALS: BP 104/68
[2018-11-07] MEDS: insulin glargine (Lantus) pen - multi-dose SQ SCH (21:57)
[2018-11-08] VITALS: BP 103/58
[2018-11-08] MEDS: methylPREDNISolone sod succ 125mg/2ml vial IV SCH ×3 (02:12→13:23)
[2018-11-08] MEDS: ipratropium/albuterol 3ml nebule NEB SCH ×4 (03:00→15:00)
[2018-11-08 05:18] LABS: BASOPHILS % (AUTO) 0 % (0-1); EOSINOPHILS % (AUTO) 0 % (0-6); HEMATOCRIT 36.6 % (42.0-52.0); HEMOGLOBIN 12.6 g/dl (14.0-17.9); LYMPHOCYTES # (AUTO) 0.5 X10'3 (1.1-4.8); LYMPHOCYTES % (AUTO) 5.8 % (21-51); MEAN CORPUSCULAR HEMOGLOBIN 35.6 PG (27.0-31.0); MEAN CORPUSCULAR HGB CONC 34.4 g/dL (33.0-36.5); MEAN CORPUSCULAR VOLUME 103.4 FL (78-98); MEAN PLATELET VOLUME 7.8 FL (7.4-10.4); MONOCYTES # (AUTO) 0.4 X10'3 (0-0.9); MONOCYTES % (AUTO) 4.9 % (2-12); NEUTROPHILS # (AUTO) 7.1 X10'3 (1.8-7.7); NEUTROPHILS % (AUTO) 89.3 % (42-75); PLATELET COUNT 313 X10'3 (140-440); RED BLOOD COUNT 3.54 X10'6 (4.70-6.10); RED CELL DISTRIBUTION WIDTH 16.7 % (11.5-14.5)
[2018-11-08 05:29] LABS: ALANINE AMINOTRANSFERASE 19 U/L (12-78); ALBUMIN 2.7 G/DL (3.4-5.0); ALKALINE PHOSPHATASE 48 IU/L (46-116); ANION GAP 9 (8-16); ASPARTATE AMINO TRANSFERASE 11 U/L (10-37); BILIRUBIN,TOTAL 0.5 MG/DL (0.1-1.0); BLOOD UREA NITROGEN 36 MG/DL (7-18); BUN/CREATININE RATIO 33.3 (5.4-32.0); CALCIUM 8.1 MG/DL (8.5-10.1); CHLORIDE 103 MMOL/L (99-107); CREATININE 1.08 MG/DL (0.60-1.10); GLUCOSE 160 MG/DL (70-104); MAGNESIUM 2.1 MG/DL (1.5-2.4); PHOSPHORUS 3.4 MG/DL (2.3-4.5); POTASSIUM 3.2 MMOL/L (3.5-5.1); SODIUM 135 MMOL/L (135-145); TOTAL CARBON DIOXIDE 23.3 MMOL/L (24-32); TOTAL PROTEIN 5.4 G/DL (6.4-8.2); eGFR 67 ML/MIN
--- NOTE | 2018-11-08 06:34 | NUR ---
Problems reprioritized. Patient report given, questions answered & plan of care reviewed with Dominga GALE. Pt currently sleeping on his back with no signs of distress.
[2018-11-08 07:30] VITALS: BP 112/71
[2018-11-08] MEDS: K and/or MAG REPLACEMENT MC SCH (08:00)
[2018-11-08] MEDS: megestrol acetate 400mg/10ml UD oral suspension PO SCH (08:00)
[2018-11-08] MEDS: normal saline 1000ml 1,000 ML IV SCH (08:42)
[2018-11-08] MEDS: furosemide 40mg/4ml inj IV SCH (08:43)
[2018-11-08] MEDS: HYDROcodone/acetaminophen 10/325mg tab PO PRN (08:43)
[2018-11-08] MEDS: pantoprazole 40mg Tablet.DR PO SCH (09:14)
[2018-11-08] MEDS: busPIRone 5mg tablet PO SCH (09:15)
[2018-11-08] MEDS: oxybutynin 5mg tablet PO SCH (09:17)
[2018-11-08] MEDS: calcium carbonate/vitamin D3 tablet PO SCH (09:18)
[2018-11-08] MEDS: sennosides 8.6mg tablet PO SCH (09:20)
[2018-11-08] MEDS: PARoxetine 10mg tablet PO SCH (09:20)
[2018-11-08] MEDS: levoTHYROXINE 100mcg tablet PO SCH (09:21)
[2018-11-08] MEDS: ascorbic acid 500mg tablet PO SCH (09:22)
[2018-11-08] MEDS: multivitamins, therapeutics tablet PO SCH (09:22)
[2018-11-08] MEDS: cyanocobalamin 500mcg tablet PO SCH (09:22)
[2018-11-08] MEDS: amiodarone 200mg tablet PO SCH (09:24)
[2018-11-08] MEDS: docusate sod 250mg capsule PO SCH (09:25)
[2018-11-08] MEDS: aspirin 81mg tab.chew PO SCH (09:28)
[2018-11-08] MEDS: heparin, porcine 5000 units/ml vial SQ SCH (09:38)
[2018-11-08] MEDS: insulin Lispro (HumaLOG) vial - multi-dose SQ SCH (09:55)
[2018-11-08 11:26] VITALS: BP 117/71
[2018-11-08] MEDS ORDERED: potassium Cl 20 mEq SR tablet PO STA (13:17)
--- NOTE | 2018-11-08 13:19 | NUR ---
Dr. Gould ordered to discontinue potassium replacement protocol and administer 40mEq K+ now. One dose of 20mEq was given already this morning, so this will give the patient a total of 60mEq for replacement.
--- NOTE | 2018-11-08 16:59 | NUR ---
Report called to Odell, Given to Mode. Awaiting patient pickle processor at 1830.
--- NOTE | 2018-11-08 18:40 | NUR ---
Problems reprioritized. Patient report given, questions answered & plan of care reviewed with SHAHLA Almaguer.
--- NOTE | 2018-11-08 18:45 | NUR ---
Patient in room [facility]AL 348. I have received report from Dominga GALE and had the opportunity to ask questions and assume patient care. Py laying in bed resting with eyes open waiting for transport to [place]. No signs of distress, will continue to monitor.
--- NOTE | 2018-11-08 20:30 | NUR ---
Talked to Angle at [facility]. She was questioning when transport would be bringing the pt. Neither of us knew which transport was scheduled to bean picker the pt. After consulting with my charge nurse I told her I would call [facility] [employer] and see if I could still arrange transport.
--- NOTE | 2018-11-08 20:50 | NUR ---
Kelly at [facility] stated she could still get a truck driver rubbish collector to us to transport the pt to [place]. Angle at [facility] was notified of this arrangement.
--- NOTE | 2018-11-08 21:08 | NUR ---
Lauro from [facility] showed up to case picker the pt. I removed the IV, helped transfer the pt into a wheelchair and rug hooker hand his O2. All of his personal belongings (2 bags) were placed on the back of the wheelchair. Pts hearing aids were in his ear at the time of departure. Pt had no signs of distress. All paperwork given to Lauro at this time.
== END 2018-11-08 21:05 | DRG 291 ==
LOC: ER 03:09 → ED HOLD 07:17 → SUR 3N 18:51
PROVIDERS: ADMIT Family Medicine; ATTEND Family Medicine
DX: I11.0 Hypertensive heart disease with heart failure (principal); J96.21 Acute and chronic respiratory failure with hypoxia; J44.1 Chronic obstructive pulmonary disease with (acute) exacerbation; E87.1 Hypo-osmolality and hyponatremia; I50.33 Acute on chronic diastolic (congestive) heart failure; E86.0 Dehydration; E03.9 Hypothyroidism, unspecified; K21.9 Gastro-esophageal reflux disease without esophagitis; K59.00 Constipation, unspecified; G89.29 Other chronic pain; I27.81 Cor pulmonale (chronic); I27.29 Other secondary pulmonary hypertension; D72.829 Elevated white blood cell count, unspecified; E11.9 Type 2 diabetes mellitus without complications; H91.90 Unspecified hearing loss, unspecified ear; Z79.890 Hormone replacement therapy; Z87.891 Personal history of nicotine dependence; Z99.81 Dependence on supplemental oxygen; Z90.49 Acquired absence of other specified parts of digestive tract; Z88.0 Allergy status to penicillin; Z88.5 Allergy status to narcotic agent; Z88.6 Allergy status to analgesic agent; Z88.2 Allergy status to sulfonamides; Z88.8 Allergy status to other drugs, medicaments and biological substances
CPT/HCPCS: 36415; 71045; 80053; 81001; 82948; 83605; 83735; 83880; 84100; 84145; 84439; 84443; 84484; 85025; 85610; 87070; 93005; 94640; 94760; 96361; 96374; 97110; 97116; 97162; 97530; 99285; G0378; J1644; J1815; J1940; J2930; J7030

== ENCOUNTER 2018-11-17 11:17 | Emergency (ER) | payer MEDICARE, MEDICAID ==
[~2018-11-17] VITALS: Ht 170.2 cm; Wt 59.0 kg
[~2018-11-17 11:17] MED LIST changes: +ALB0.5UD IH; +ASPI-611 PO; -BUSP10TA11 PO; +BUSP5TAB3 PO; -CYAN1TAB41 PO; +CYAN500T46 PO; +LEVO100T PO; +MEGE400O2 PO; +MULT-933 PO; +PARO30TA73 PO; -PAX20T PO; -PIOG45TA5 PO; +SENN-162 PO; +TIOT18CA3 INH
[2018-11-17] MEDS ORDERED: lactulose 20gm/30ml cup PO ONE (12:00)
[2018-11-17] MEDS ORDERED: normal saline 1000ML IV soln IVB ONE (12:00)
[2018-11-17 12:39] LABS: BASOPHILS % (AUTO) 0.2 % (0-1); EOSINOPHILS # (AUTO) 0.2 X10'3 (0-0.9); EOSINOPHILS % (AUTO) 0.9 % (0-6); HEMATOCRIT 50.8 % (42.0-52.0); HEMOGLOBIN 17.1 g/dl (14.0-17.9); LYMPHOCYTES % (AUTO) 12.3 % (21-51); MEAN CORPUSCULAR HGB CONC 33.6 g/dL (33.0-36.5); MEAN PLATELET VOLUME 8.3 FL (7.4-10.4); MONOCYTES # (AUTO) 1.4 X10'3 (0-0.9); MONOCYTES % (AUTO) 8.1 % (2-12); NEUTROPHILS # (AUTO) 13.1 X10'3 (1.8-7.7); NEUTROPHILS % (AUTO) 78.5 % (42-75); PLATELET COUNT 236 X10'3 (140-440); RED BLOOD COUNT 4.88 X10'6 (4.70-6.10); RED CELL DISTRIBUTION WIDTH 16.9 % (11.5-14.5); WHITE BLOOD COUNT 16.6 X10'3 (4.5-11.0)
[2018-11-17 12:43] LABS: ALANINE AMINOTRANSFERASE 48 U/L (12-78); ALBUMIN 2.9 G/DL (3.4-5.0); ALBUMIN/GLOBULIN RATIO 0.7 (1.1-1.5); ALKALINE PHOSPHATASE 195 IU/L (46-116); ANION GAP 10 (8-16); ASPARTATE AMINO TRANSFERASE 36 U/L (10-37); BILIRUBIN,TOTAL 0.5 MG/DL (0.1-1.0); BLOOD UREA NITROGEN 22 MG/DL (7-18); BUN/CREATININE RATIO 18.6 (5.4-32.0); CHLORIDE 105 MMOL/L (99-107); CREATININE 1.18 MG/DL (0.60-1.10); GLUCOSE 170 MG/DL (70-104); SODIUM 143 MMOL/L (135-145); TOTAL PROTEIN 6.9 G/DL (6.4-8.2); eGFR 61 ML/MIN
[2018-11-17 12:51] LABS: POTASSIUM 3.7 MMOL/L (3.5-5.1)
--- NOTE | 2018-11-17 13:08 | NUR ---
PT BACK FROM CT
[2018-11-17] MEDS ORDERED: ketorolac tromethamine 15mg/ml inj. IM ONE (14:20)
[2018-11-17] MEDS ORDERED: LIDOcaine 2% 10ml TOPICAL JELLY (Urojet) MM ONE (15:30)
[2018-11-17] MEDS ORDERED: POLY17PO10 PO (16:10)
[2018-11-17] MEDS ORDERED: FLO0.4C PO (16:10)
--- NOTE | 2018-11-17 17:02 | NUR ---
CARLOS ZELAYA TALKED WITH THE NURSE HOSEA AT [facility] ([phone]) AND THEY TALKED ABOUT THE PLAN AND WHAT WAS FOUND WITH THE PT. TALKED WITH PT'S DAUGHTER FANNIE ([phone]) AND SHE IS COMING TO PICK HIM UP AND TAKE HIM BACK TO THE FACILITY. SHE STATES SHE NEEDS TO GO GET HIS STUFF FROM [facility].
[2018-11-17 18:09] VITALS: BP 100/68
== END 2018-11-17 18:11 | disposition home or self-care (01) ==
LOC: ER 11:17
DX: K59.00 Constipation, unspecified (principal); R33.9 Retention of urine, unspecified; D72.828 Other elevated white blood cell count; R10.84 Generalized abdominal pain; I11.0 Hypertensive heart disease with heart failure; I50.9 Heart failure, unspecified; J44.9 Chronic obstructive pulmonary disease, unspecified; E11.9 Type 2 diabetes mellitus without complications; G89.29 Other chronic pain; M10.9 Gout, unspecified; Z98.890 Other specified postprocedural states; Z90.49 Acquired absence of other specified parts of digestive tract; Z88.0 Allergy status to penicillin; Z88.2 Allergy status to sulfonamides; Z88.1 Allergy status to other antibiotic agents; Z88.5 Allergy status to narcotic agent; Z79.82 Long term (current) use of aspirin; Z79.899 Other long term (current) drug therapy
CPT/HCPCS: 36415; 51702; 71045; 74176; 80053; 83880; 84145; 85025; 93005; 96372; 99285; J1885; 99284

== ENCOUNTER 2018-12-18 02:40 | Emergency (ER) | payer MEDICARE, MEDICAID ==
[~2018-12-18] VITALS: Ht 157.5 cm; Wt 70.5 kg
[~2018-12-18 02:40] MED LIST changes: +FLO0.4C PO
[2018-12-18] MEDS ORDERED: fentaNYL/PF 50MCG/1 ML 2ML syringe IV ONE (03:15)
[2018-12-18 03:21] LABS: BASOPHILS % (AUTO) 0.1 % (0-1); EOSINOPHILS % (AUTO) 0.1 % (0-6); HEMATOCRIT 42.8 % (42.0-52.0); HEMOGLOBIN 14.6 g/dl (14.0-17.9); LYMPHOCYTES # (AUTO) 1.7 X10'3 (1.1-4.8); LYMPHOCYTES % (AUTO) 8.9 % (21-51); MEAN CORPUSCULAR HEMOGLOBIN 34.6 PG (27.0-31.0); MEAN CORPUSCULAR HGB CONC 34.1 g/dL (33.0-36.5); MEAN CORPUSCULAR VOLUME 101.6 FL (78-98); MEAN PLATELET VOLUME 8.2 FL (7.4-10.4); MONOCYTES # (AUTO) 1.9 X10'3 (0-0.9); MONOCYTES % (AUTO) 9.9 % (2-12); NEUTROPHILS # (AUTO) 15.1 X10'3 (1.8-7.7); PLATELET COUNT 355 X10'3 (140-440); RED BLOOD COUNT 4.21 X10'6 (4.70-6.10); RED CELL DISTRIBUTION WIDTH 15.1 % (11.5-14.5); WHITE BLOOD COUNT 18.7 X10'3 (4.5-11.0)
[2018-12-18 03:23] LABS: CLARITY,URINE TURBID (Clear); COLOR,URINE YELLOW (Yellow); GLUCOSE, URINE NEGATIVE (Neg); KETONES,URINE NEGATIVE (Neg); LEUKOCYTE ESTERASE ,URINE MODERATE (Neg); NITRITES, URINE POSITIVE (Neg); OCCULT BLOOD,URINE MODERATE (Neg); PH,URINE >=9.0 (4.8-8.0); PROTEIN,URINE 100 mg/dl (Neg); UROBILINOGEN,URINE 0.2 E.U/dL (0.2-1.0)
[2018-12-18 03:31] LABS: ALANINE AMINOTRANSFERASE 16 U/L (12-78); ALBUMIN 2.5 G/DL (3.4-5.0); ALBUMIN/GLOBULIN RATIO 0.7 (1.1-1.5); ALKALINE PHOSPHATASE 89 IU/L (46-116); ANION GAP 11 (8-16); ASPARTATE AMINO TRANSFERASE 16 U/L (10-37); BILIRUBIN,TOTAL 0.8 MG/DL (0.1-1.0); BLOOD UREA NITROGEN 23 MG/DL (7-18); BUN/CREATININE RATIO 17.4 (5.4-32.0); CALCIUM 8.7 MG/DL (8.5-10.1); CHLORIDE 96 MMOL/L (99-107); CREATININE 1.32 MG/DL (0.60-1.10); GLUCOSE 138 MG/DL (70-104); POTASSIUM 4.8 MMOL/L (3.5-5.1); SODIUM 126 MMOL/L (135-145); TOTAL CARBON DIOXIDE 19.4 MMOL/L (24-32); TOTAL PROTEIN 6.3 G/DL (6.4-8.2); eGFR 53 ML/MIN
[2018-12-18 03:36] LABS: INR 1.1 INR; PARTIAL THROMBOPLASTIN TIME 30 SECONDS (22-32); PROTHROMBIN TIME 11.4 SECONDS (9.0-12.0)
[2018-12-18 03:37] LABS: UA COLLECTION TYPE FOLEY CATH
[2018-12-18 03:41] LABS: BACTERIA,URINE 3+ /HPF (Neg); MUCUS STRANDS NONE SEEN /LPF (Neg); SQUAMOUS EPITHELIAL CELL,UR NONE SEEN /LPF (FEW); WBC,URINE TNTC /HPF (0-4)
[2018-12-18] MEDS ORDERED: CefTRIAXone 2gm/D5W 50ml 50 ML IV ONE (03:45)
[2018-12-18] MEDS ORDERED: normal saline 1000ml 1,000 ML IV ONE (04:00)
--- NOTE | 2018-12-18 04:58 | NUR ---
YOVANNY SPOKE TO OAKLEY ABOUT CT RESULTS. UNSURE OF WHERE CATH INFLATED. NEED TO REPLACE CATHETER. WILL ATTEMPT COUDE PLACEMENT
[2018-12-18] MEDS ORDERED: CIPR-230 PO (05:20)
--- NOTE | 2018-12-18 05:45 | NUR ---
ROUGHLY 1750 MLS OF PRURULENT CLOUDY URINE OUT OF BRADLEY CATHETER. FLUSHED WITH NORMAL SALINE AND STARTING TO GET CLEAR, YELLOW URINE OUT. MD CANALES AWARE
[2018-12-18 05:52] LABS: TOTAL CELLS COUNTED 100
[2018-12-18 05:54] LABS: PLATELET ESTIMATE NORMAL
[2018-12-18 06:27] VITALS: BP 96/56
== END 2018-12-18 07:12 | disposition home or self-care (01) ==
LOC: ER 02:41
DX: N39.0 Urinary tract infection, site not specified (principal); F11.23 Opioid dependence with withdrawal; I11.0 Hypertensive heart disease with heart failure; I50.9 Heart failure, unspecified; J44.9 Chronic obstructive pulmonary disease, unspecified; E11.9 Type 2 diabetes mellitus without complications; G89.29 Other chronic pain; M10.9 Gout, unspecified; Z90.49 Acquired absence of other specified parts of digestive tract; Z98.890 Other specified postprocedural states; Z88.0 Allergy status to penicillin; Z88.2 Allergy status to sulfonamides; Z88.5 Allergy status to narcotic agent; Z79.82 Long term (current) use of aspirin; Z79.899 Other long term (current) drug therapy
CPT/HCPCS: 36415; 51702; 71045; 74176; 80053; 81001; 83605; 84145; 85025; 85610; 85730; 87040; 87077; 87088; 87186; 93005; 96365; 96375; 99284; J0696; J3010; J7030

== ENCOUNTER 2018-12-25 19:05 | Emergency (ER) | payer MEDICARE, MEDICAID ==
[~2018-12-25] VITALS: Ht 167.6 cm; Wt 68.0 kg
[~2018-12-25 19:05] MED LIST changes: +CIPR-230 PO; -FLO0.4C PO; -HYDR-3972 PO
--- NOTE | 2018-12-25 19:25 | NUR ---
IRRIGATED BLADDER WITH 40 CC OF STERILE NS, URINE APPEARS TO BE CLEAR NOW WITH NO SIGNS OF CLOTS. WE WILL BE BLADDER SCANNING TO SEE IF THERE IS RISIDUAL URINE IN THE BLADDER.
[2018-12-25 19:36] LABS: BASOPHILS % (AUTO) 0.4 % (0-1); EOSINOPHILS # (AUTO) 0.3 X10'3 (0-0.9); HEMATOCRIT 34.8 % (42.0-52.0); HEMOGLOBIN 11.6 g/dl (14.0-17.9); LYMPHOCYTES # (AUTO) 1.9 X10'3 (1.1-4.8); LYMPHOCYTES % (AUTO) 18.4 % (21-51); MEAN CORPUSCULAR HEMOGLOBIN 34.5 PG (27.0-31.0); MEAN CORPUSCULAR HGB CONC 33.4 g/dL (33.0-36.5); MEAN CORPUSCULAR VOLUME 103.2 FL (78-98); MEAN PLATELET VOLUME 6.7 FL (7.4-10.4); MONOCYTES # (AUTO) 1.1 X10'3 (0-0.9); MONOCYTES % (AUTO) 10.8 % (2-12); NEUTROPHILS # (AUTO) 7.1 X10'3 (1.8-7.7); NEUTROPHILS % (AUTO) 67.4 % (42-75); PLATELET COUNT 367 X10'3 (140-440); RED BLOOD COUNT 3.37 X10'6 (4.70-6.10); RED CELL DISTRIBUTION WIDTH 14.7 % (11.5-14.5); WHITE BLOOD COUNT 10.5 X10'3 (4.5-11.0)
[2018-12-25 19:47] LABS: INR 1.2 INR; PARTIAL THROMBOPLASTIN TIME 29 SECONDS (22-32); PROTHROMBIN TIME 11.6 SECONDS (9.0-12.0)
[2018-12-25 19:55] LABS: ALANINE AMINOTRANSFERASE 21 U/L (12-78); ALBUMIN 1.9 G/DL (3.4-5.0); ALBUMIN/GLOBULIN RATIO 0.6 (1.1-1.5); ALKALINE PHOSPHATASE 92 IU/L (46-116); ANION GAP 8 (8-16); ASPARTATE AMINO TRANSFERASE 16 U/L (10-37); BILIRUBIN,TOTAL 0.3 MG/DL (0.1-1.0); BLOOD UREA NITROGEN 12 MG/DL (7-18); BUN/CREATININE RATIO 18.2 (5.4-32.0); CALCIUM 7.7 MG/DL (8.5-10.1); CHLORIDE 103 MMOL/L (99-107); CREATININE 0.66 MG/DL (0.60-1.10); GLUCOSE 112 MG/DL (70-104); POTASSIUM 3.9 MMOL/L (3.5-5.1); SODIUM 134 MMOL/L (135-145); TOTAL CARBON DIOXIDE 23.1 MMOL/L (24-32); TOTAL PROTEIN 5.3 G/DL (6.4-8.2); eGFR > 90 ML/MIN
[2018-12-25 20:31] LABS: CLARITY,URINE CLOUDY (Clear); COLOR,URINE YELLOW (Yellow); GLUCOSE, URINE NEGATIVE (Neg); KETONES,URINE NEGATIVE (Neg); LEUKOCYTE ESTERASE ,URINE TRACE (Neg); NITRITES, URINE NEGATIVE (Neg); OCCULT BLOOD,URINE LARGE (Neg); PH,URINE 6.5 (4.8-8.0); PROTEIN,URINE NEGATIVE (Neg); UROBILINOGEN,URINE 0.2 E.U/dL (0.2-1.0)
[2018-12-25 20:39] LABS: UA COLLECTION TYPE FOLEY CATH
[2018-12-25 20:40] LABS: BACTERIA,URINE FEW /HPF (Neg); RBC,URINE TNTC /HPF (0-2); SQUAMOUS EPITHELIAL CELL,UR FEW /LPF (FEW)
[2018-12-25] MEDS ORDERED: NITR100C6 PO (21:03)
[2018-12-25 21:32] VITALS: BP 110/71
== END 2018-12-25 21:37 | disposition home or self-care (01) ==
LOC: ER 19:06
DX: T83.511A Infection and inflammatory reaction due to indwelling urethral catheter, initial encounter (principal); N39.0 Urinary tract infection, site not specified; R31.9 Hematuria, unspecified; I11.0 Hypertensive heart disease with heart failure; I50.9 Heart failure, unspecified; J44.9 Chronic obstructive pulmonary disease, unspecified; E11.9 Type 2 diabetes mellitus without complications; G89.29 Other chronic pain; M10.9 Gout, unspecified; Z90.49 Acquired absence of other specified parts of digestive tract; Z98.890 Other specified postprocedural states; Z88.0 Allergy status to penicillin; Z88.2 Allergy status to sulfonamides; Z88.1 Allergy status to other antibiotic agents; Z88.5 Allergy status to narcotic agent; Z79.82 Long term (current) use of aspirin; Z79.899 Other long term (current) drug therapy; Y83.8 Other surgical procedures as the cause of abnormal reaction of the patient, or of later complication, without mention of misadventure at the time of the procedure; Y92.89 Other specified places as the place of occurrence of the external cause
CPT/HCPCS: 36415; 51702; 71045; 80053; 81001; 83605; 84145; 85025; 85610; 85730; 87040; 87088; 99284

== ENCOUNTER 2018-12-29 13:44 | Inpatient (IN) | payer MEDICARE, MEDICAID ==
[~2018-12-29] VITALS: Ht 170.2 cm; Wt 66.0 kg
[~2018-12-29 13:44] MED LIST changes: +NITR100C6 PO
--- NOTE | 2018-12-29 15:12 | NUR ---
called pt daughter [phone] [place], she states pt has outstanding urology referral, estrada catheter placed approx 4 weeks ago at [facility] when seen for poss bowel blockage, pt seen a week ago in ed for blood in catheter bag, estrada irrigated and instructed pt to follow up with urology, pt tamie states increased blood in back yesterday, home nurse flushed and pmd informed pt should go to ed today.
[2018-12-29 15:23] LABS: BASOPHILS # (AUTO) 0.1 X10'3 (0-0.2); BASOPHILS % (AUTO) 0.5 % (0-1); EOSINOPHILS # (AUTO) 0.2 X10'3 (0-0.9); EOSINOPHILS % (AUTO) 1.9 % (0-6); HEMATOCRIT 29.5 % (42.0-52.0); HEMOGLOBIN 10.2 g/dl (14.0-17.9); LYMPHOCYTES # (AUTO) 2.4 X10'3 (1.1-4.8); LYMPHOCYTES % (AUTO) 20.3 % (21-51); MEAN CORPUSCULAR HGB CONC 34.5 g/dL (33.0-36.5); MEAN CORPUSCULAR VOLUME 101.4 FL (78-98); MEAN PLATELET VOLUME 6.4 FL (7.4-10.4); MONOCYTES # (AUTO) 1.2 X10'3 (0-0.9); MONOCYTES % (AUTO) 10.2 % (2-12); NEUTROPHILS # (AUTO) 7.8 X10'3 (1.8-7.7); NEUTROPHILS % (AUTO) 67.1 % (42-75); PLATELET COUNT 401 X10'3 (140-440); RED BLOOD COUNT 2.91 X10'6 (4.70-6.10); RED CELL DISTRIBUTION WIDTH 14.4 % (11.5-14.5); WHITE BLOOD COUNT 11.7 X10'3 (4.5-11.0)
[2018-12-29 15:39] LABS: ALBUMIN 2.1 G/DL (3.4-5.0); ALBUMIN/GLOBULIN RATIO 0.6 (1.1-1.5); ANION GAP 7 (8-16); ASPARTATE AMINO TRANSFERASE 12 U/L (10-37); BILIRUBIN,TOTAL 0.3 MG/DL (0.1-1.0); BLOOD UREA NITROGEN 16 MG/DL (7-18); BUN/CREATININE RATIO 23.9 (5.4-32.0); CALCIUM 8.1 MG/DL (8.5-10.1); CHLORIDE 103 MMOL/L (99-107); CREATININE 0.67 MG/DL (0.60-1.10); GLUCOSE 85 MG/DL (70-104); POTASSIUM 4.1 MMOL/L (3.5-5.1); SODIUM 134 MMOL/L (135-145); TOTAL CARBON DIOXIDE 24.4 MMOL/L (24-32); TOTAL PROTEIN 5.4 G/DL (6.4-8.2); eGFR > 90 ML/MIN
[2018-12-29 15:40] LABS: ALANINE AMINOTRANSFERASE 13 U/L (12-78); ALKALINE PHOSPHATASE 91 IU/L (46-116)
[2018-12-29 16:17] LABS: TOTAL CELLS COUNTED 100
[2018-12-29 16:18] LABS: PLATELET ESTIMATE NORMAL
--- NOTE | 2018-12-29 16:35 | NUR ---
CALLED DAUGHTER TO COME AND TRANSPORT PT HOME
[2018-12-29] MEDS ORDERED: LIDOcaine Viscous 15ml cup PO ONE (18:00)
--- NOTE | 2018-12-29 19:04 | NUR ---
dr. trent updated that pt in a lot of pain to the tip of his penis. pt received topically viscous lidocaine to the area 45 min ago by day shift rn. pt's pain is 10 out of 10. md now at bedside to reevaluate. the continuous irrigation to estrada has stopped and a clot is suspected. rn, altagracia, at [facility] trying to reestablish cbi. verbal received from miley for morphine 4 mg im.
--- NOTE | 2018-12-29 19:09 | NUR ---
pt with allergy to morphien, will give norco as pt can take this. dr. trent giving verbal for this order change.
[2018-12-29] MEDS ORDERED: HYDROcodone/acetaminophen 10/325mg tab PO ONE (19:10)
[2018-12-29] MEDS: HYDROcodone/acetaminophen 10/325mg tab PO ONE (19:14)
--- NOTE | 2018-12-29 20:06 | NUR ---
CBI OUTPUT NOW LIGHT PINK, PT ON 4TH BAG. I SPOKE WITH PTS' DAUGHTER ANTONI AND UPDATED HER THAT LIKELY PT TO BE READY TO DC IN 1 HR. PT IS PLEASANT AND COOPERATIVE AND WITH STABLE VS.
--- NOTE | 2018-12-29 21:48 | NUR ---
PTS URINE CLEAR NOW. DAUGHTER IN ROUTE FOR DC TRANSPORT
--- NOTE | 2018-12-29 22:35 | NUR ---
PTS CBI HAS BEEN OFF FOR THE PAST 40 MIN HE WAS DC READY AND DAUGHTER COMING TO LABORER GENERAL. DAUGHTER NOW AT BEDSIDE AND URINE DRAINING DARK RED BLOOD. DR. CHUN UPDATED AND CONSULTED WITH DR. WAHL, UROLOGY, AND PLAN FOR ADMISSION. DR. CHUN TO TALK WITH DAUGHTER AND PT SHORTLY.
[2018-12-29] MEDS ORDERED: BUSP10TA11 PO (22:45)
[2018-12-29] MEDS ORDERED: HYDR-4353 PO (22:45)
--- NOTE | 2018-12-29 23:43 | NUR ---
CBI CONTINUES, MED REC COMLETED, PT AWAITING HOSPITALIST. REPROTS PAIN TO LOW ABD AND TIP OF PENIS.
[2018-12-30] VITALS (18 sets, daily range): BP systolic 77–147; BP diastolic 53–88
[2018-12-30] MEDS ORDERED: mag hydrox/Alum hydrox/simeth 30ml oral suspension PO PRN (00:15)
[2018-12-30] MEDS ORDERED: ondansetron/PF 4mg/2ml inj IV PRN ×2 (00:15→14:45)
[2018-12-30] MEDS ORDERED: potassium Cl 40MEQ/NS 500ml 500 ML IV PRN ×2 (00:15)
[2018-12-30] MEDS ORDERED: magnesium 4gm in 100ml NS 100 ML IV PRN (00:15)
[2018-12-30] MEDS ORDERED: ipratropium/albuterol 3ml nebule NEB PRN (00:15)
[2018-12-30] MEDS ORDERED: potassium Cl 20 mEq SR tablet PO PRN ×2 (00:15)
[2018-12-30] MEDS ORDERED: acetaminophen 325mg tablet PO PRN (00:15)
[2018-12-30] MEDS ORDERED: magnesium 2GM in 50ml NS 50 ML IV PRN (00:15)
[2018-12-30] MEDS ORDERED: HYDROmorphone inj. 0.5 MG/0.5 ML DISP.SYRIN IV PRN ×2 (01:20→14:45)
[2018-12-30 01:31] LABS: BASOPHILS % (AUTO) 0.2 % (0-1); EOSINOPHILS # (AUTO) 0.1 X10'3 (0-0.9); EOSINOPHILS % (AUTO) 0.3 % (0-6); HEMATOCRIT 28.4 % (42.0-52.0); HEMOGLOBIN 9.7 g/dl (14.0-17.9); LYMPHOCYTES # (AUTO) 1.7 X10'3 (1.1-4.8); LYMPHOCYTES % (AUTO) 11.6 % (21-51); MEAN CORPUSCULAR HEMOGLOBIN 34.6 PG (27.0-31.0); MEAN CORPUSCULAR HGB CONC 33.9 g/dL (33.0-36.5); MEAN CORPUSCULAR VOLUME 101.8 FL (78-98); MEAN PLATELET VOLUME 6.7 FL (7.4-10.4); MONOCYTES # (AUTO) 0.9 X10'3 (0-0.9); MONOCYTES % (AUTO) 5.7 % (2-12); NEUTROPHILS # (AUTO) 12.3 X10'3 (1.8-7.7); NEUTROPHILS % (AUTO) 82.2 % (42-75); PLATELET COUNT 394 X10'3 (140-440); RED BLOOD COUNT 2.79 X10'6 (4.70-6.10); RED CELL DISTRIBUTION WIDTH 14.4 % (11.5-14.5)
[2018-12-30] MEDS ORDERED: MESSAGE TO PHARMACY PO ONE (02:20)
[2018-12-30] MEDS ORDERED: glucagon, human recombinant 1mg kit SUBCUT PRN (02:20)
[2018-12-30] MEDS ORDERED: dextrose ORAL solution 15 GM/59 ML bottle PO PRN ×2 (02:20)
[2018-12-30] MEDS ORDERED: dextrose 50%-water 50ml dispensing syringe IV PRN ×2 (02:20)
[2018-12-30] MEDS ORDERED: insulin Lispro (HumaLOG) vial - multi-dose SQ SCH (02:20)
[2018-12-30] MEDS: ipratropium 0.5 MG/2.5ML nebule IH SCH ×4 (02:30→20:56)
--- NOTE | 2018-12-30 02:37 | NUR ---
REPORT CALLED TO SANDRA GALECORE JAVA ENGINEER .IPA 340 A. PT GETTING SVN TREATMENT NOW.
[2018-12-30] MEDS: normal saline 1000ml 1,000 ML IV SCH ×2 (02:38→12:46)
[2018-12-30] MEDS: HYDROcodone/acetaminophen 10/325mg tab PO ONE (02:39)
--- NOTE | 2018-12-30 04:00 | NUR ---
Page Darryl ISSA PAGER ID: [phone] [facility] Gavin GALE Patient has crackles in bilateral lung bases, has NS @ 100/hr. Also, no order for CBI. Want NS or Sterile water? Thanks
--- NOTE | 2018-12-30 06:36 | NUR ---
Patient in room [facility] 340. I have received report from Gavin GALE and had the opportunity to ask questions and assume patient care. Patient resting comfortably CBI running, Dark Blood increased CBI drip will continue to monitor.
--- NOTE | 2018-12-30 06:37 | NUR ---
Problems reprioritized. Patient report given, questions answered & plan of care reviewed with Coreen GALE.
[2018-12-30 07:00] LABS: HEMATOCRIT 26.9 % (42.0-52.0); HEMOGLOBIN 9.1 g/dl (14.0-17.9); MEAN CORPUSCULAR HEMOGLOBIN 34.9 PG (27.0-31.0); MEAN CORPUSCULAR HGB CONC 34.1 g/dL (33.0-36.5); MEAN CORPUSCULAR VOLUME 102.5 FL (78-98); MEAN PLATELET VOLUME 6.7 FL (7.4-10.4); PLATELET COUNT 408 X10'3 (140-440); RED BLOOD COUNT 2.62 X10'6 (4.70-6.10); RED CELL DISTRIBUTION WIDTH 14.5 % (11.5-14.5); WHITE BLOOD COUNT 11.4 X10'3 (4.5-11.0)
[2018-12-30] MEDS: HYDROcodone/acetaminophen 10/325mg tab PO PRN ×2 (07:35→17:39)
[2018-12-30] MEDS ORDERED: non-formulary drug (Tiotropium Bromide (Spiriva) 1 PUFF) INH SCH (08:00)
[2018-12-30] MEDS: K and/or MAG REPLACEMENT MC SCH (08:00)
[2018-12-30] MEDS: docusate sod 250mg capsule PO SCH ×2 (08:00→20:28)
[2018-12-30] MEDS: levoTHYROXINE 100mcg tablet PO SCH (08:18)
[2018-12-30] MEDS: ascorbic acid 500mg tablet PO SCH (08:18)
[2018-12-30] MEDS: multivitamins, therapeutics tablet PO SCH (08:18)
[2018-12-30] MEDS: calcium carbonate/vitamin D3 tablet PO SCH ×3 (08:18→17:37)
[2018-12-30] MEDS: amiodarone 200mg tablet PO SCH ×2 (08:19→20:27)
[2018-12-30] MEDS: PARoxetine 10mg tablet PO SCH (08:19)
[2018-12-30] MEDS: pantoprazole 40mg Tablet.DR PO SCH (08:19)
[2018-12-30] MEDS: busPIRone 15mg tablet PO SCH ×2 (08:19→20:27)
[2018-12-30] MEDS: oxybutynin 5mg tablet PO SCH ×2 (08:20→20:27)
--- NOTE | 2018-12-30 11:01 | NUR ---
no Electrolyte labs today
[2018-12-30] MEDS ORDERED: neomy sulf/polymyxin B sulf. GU irrigation 1ml amp IR ONE (13:16)
[2018-12-30 13:20] LABS: ANION GAP 6 (8-16); BILIRUBIN,TOTAL 0.3 MG/DL (0.1-1.0); BLOOD UREA NITROGEN 17 MG/DL (7-18); BUN/CREATININE RATIO 22.7 (5.4-32.0); CALCIUM 7.9 MG/DL (8.5-10.1); CHLORIDE 103 MMOL/L (99-107); CREATININE 0.75 MG/DL (0.60-1.10); GLUCOSE 78 MG/DL (70-104); POTASSIUM 4.2 MMOL/L (3.5-5.1); SODIUM 134 MMOL/L (135-145); TOTAL CARBON DIOXIDE 25.2 MMOL/L (24-32); TOTAL PROTEIN 5.2 G/DL (6.4-8.2); eGFR > 90 ML/MIN
[2018-12-30 13:21] LABS: ALANINE AMINOTRANSFERASE 15 U/L (12-78); ALBUMIN 2.1 G/DL (3.4-5.0); ALBUMIN/GLOBULIN RATIO 0.7 (1.1-1.5); ALKALINE PHOSPHATASE 76 IU/L (46-116); ASPARTATE AMINO TRANSFERASE 14 U/L (10-37); INR 1.2 INR
[2018-12-30 13:59] LABS: HEMATOCRIT 26.1 % (42.0-52.0); HEMOGLOBIN 8.9 g/dl (14.0-17.9); MEAN CORPUSCULAR HGB CONC 34.2 g/dL (33.0-36.5); MEAN CORPUSCULAR VOLUME 102.1 FL (78-98); MEAN PLATELET VOLUME 6.6 FL (7.4-10.4); PLATELET COUNT 405 X10'3 (140-440); RED BLOOD COUNT 2.56 X10'6 (4.70-6.10); RED CELL DISTRIBUTION WIDTH 14.7 % (11.5-14.5); WHITE BLOOD COUNT 10.2 X10'3 (4.5-11.0)
[2018-12-30] MEDS ORDERED: fentaNYL/PF 50MCG/1 ML 2ML syringe ONE (14:01)
[2018-12-30] MEDS ORDERED: sevoflurane 250ml liquid IH ONE (14:05)
[2018-12-30] MEDS ORDERED: CefTRIAXone/D5W-Rocephin 1gm 50 ML IV ONE (14:26)
[2018-12-30] MEDS ORDERED: ringers solution, lacted 1,000 ML IV SCH (14:42)
[2018-12-30] MEDS ORDERED: finasteride 5mg tablet PO ONE ×2 (14:58→17:45)
[2018-12-30] MEDS ORDERED: propofol inj 20 ML IV ONE (15:01)
[2018-12-30] MEDS ORDERED: ondansetron/PF 4mg/2ml inj ONE (15:01)
[2018-12-30] MEDS ORDERED: LIDOcaine 2% (20mg/ml) 5ml vial ONE (15:01)
[2018-12-30] MEDS ORDERED: rocuronium 10mg/ml inj IV ONE (15:01)
[2018-12-30] MEDS ORDERED: neostigmine methylsulfate 1 MG/ML 10ml vial ONE (15:01)
[2018-12-30] MEDS ORDERED: glycopyrrolate 0.2mg/ml inj ONE (15:01)
--- NOTE | 2018-12-30 15:03 | NUR ---
Received from OR via , accompanied by Anesthesiologist DR ENCISO and report given by Anesthesiolgist. AWAKE AND NAE PAIN. VITALS STABLE. NAE PAIN. CBI WITH CLEAR SOLDEAD URINE.
[2018-12-30 15:37] LABS: HEMATOCRIT 28.9 % (42.0-52.0); HEMOGLOBIN 9.8 g/dl (14.0-17.9); MEAN CORPUSCULAR HEMOGLOBIN 35.1 PG (27.0-31.0); MEAN CORPUSCULAR VOLUME 103.2 FL (78-98); MEAN PLATELET VOLUME 6.6 FL (7.4-10.4); PLATELET COUNT 437 X10'3 (140-440); RED CELL DISTRIBUTION WIDTH 14.7 % (11.5-14.5)
--- NOTE | 2018-12-30 16:13 | NUR ---
Report called to receiving nurse. Transferred via BED Belongings . Special Issues communicated to receiving nurse. AWAKE AND OORIENTED. VITALS STABLE. NAE PAIN. VERY LITE PINK URINE FROM CBI. TO SURGICAL RM 340A AT THIS TIME.
--- NOTE | 2018-12-30 18:25 | NUR ---
Problems reprioritized. Patient report given, questions answered & plan of care reviewed with Dayami Nova RN.
--- NOTE | 2018-12-30 18:26 | NUR ---
Patient in room [facility] 340. I have received report from SHAHLA KEENAN and had the opportunity to ask questions and assume patient care. Addendum: 12/30/18 at 1826 by Asia Geller RN Amended: Links added.
[2018-12-30] MEDS: HYDROmorphone 1 mg/ml syringe IV PRN (20:28)
[2018-12-30] MEDS: insulin glargine (Lantus) pen - multi-dose SQ SCH (21:00)
[2018-12-31] VITALS: BP 98/70
[2018-12-31] MEDS: HYDROmorphone 1 mg/ml syringe IV PRN ×3 (00:25→21:07)
[2018-12-31] MEDS: HYDROcodone/acetaminophen 10/325mg tab PO PRN (00:34)
[2018-12-31] MEDS: ipratropium 0.5 MG/2.5ML nebule IH SCH ×4 (02:00→20:22)
[2018-12-31 05:29] LABS: ALANINE AMINOTRANSFERASE 12 U/L (12-78); ALBUMIN 1.8 G/DL (3.4-5.0); ALBUMIN/GLOBULIN RATIO 0.6 (1.1-1.5); ALKALINE PHOSPHATASE 66 IU/L (46-116); ANION GAP 5 (8-16); ASPARTATE AMINO TRANSFERASE 13 U/L (10-37); BILIRUBIN,TOTAL 0.3 MG/DL (0.1-1.0); BLOOD UREA NITROGEN 14 MG/DL (7-18); BUN/CREATININE RATIO 18.4 (5.4-32.0); CALCIUM 7.6 MG/DL (8.5-10.1); CHLORIDE 104 MMOL/L (99-107); CREATININE 0.76 MG/DL (0.60-1.10); GLUCOSE 77 MG/DL (70-104); MAGNESIUM 1.7 MG/DL (1.5-2.4); POTASSIUM 3.9 MMOL/L (3.5-5.1); SODIUM 134 MMOL/L (135-145); TOTAL CARBON DIOXIDE 25.1 MMOL/L (24-32); TOTAL PROTEIN 4.6 G/DL (6.4-8.2); eGFR > 90 ML/MIN
[2018-12-31 05:32] LABS: BASOPHILS % (AUTO) 0.4 % (0-1); EOSINOPHILS # (AUTO) 0.2 X10'3 (0-0.9); EOSINOPHILS % (AUTO) 2.4 % (0-6); HEMATOCRIT 22.6 % (42.0-52.0); HEMOGLOBIN 7.8 g/dl (14.0-17.9); LYMPHOCYTES # (AUTO) 1.7 X10'3 (1.1-4.8); LYMPHOCYTES % (AUTO) 18.4 % (21-51); MEAN CORPUSCULAR HEMOGLOBIN 35.3 PG (27.0-31.0); MEAN CORPUSCULAR HGB CONC 34.4 g/dL (33.0-36.5); MEAN CORPUSCULAR VOLUME 102.5 FL (78-98); MEAN PLATELET VOLUME 6.7 FL (7.4-10.4); MONOCYTES # (AUTO) 1.2 X10'3 (0-0.9); MONOCYTES % (AUTO) 13.8 % (2-12); NEUTROPHILS # (AUTO) 5.8 X10'3 (1.8-7.7); PLATELET COUNT 354 X10'3 (140-440); RED BLOOD COUNT 2.21 X10'6 (4.70-6.10); RED CELL DISTRIBUTION WIDTH 14.7 % (11.5-14.5)
--- NOTE | 2018-12-31 06:00 | NUR ---
Patient in room [facility] 340. I have received report from Gabrielle Nova RN and had the opportunity to ask questions and assume patient care.
--- NOTE | 2018-12-31 06:59 | NUR ---
Problems reprioritized. Patient report given, questions answered & plan of care reviewed with SHAHLA Berry.
--- NOTE | 2018-12-31 07:15 | NUR ---
Patient in room [facility]ST[facility] 340. I have received report from KERI Nova RN and had the opportunity to ask questions and assume patient care.
[2018-12-31 08:00] VITALS: BP 80/51
[2018-12-31] MEDS: amiodarone 200mg tablet PO SCH ×2 (08:00→21:08)
[2018-12-31] MEDS: K and/or MAG REPLACEMENT MC SCH (08:00)
[2018-12-31] MEDS: busPIRone 15mg tablet PO SCH ×2 (08:10→21:00)
[2018-12-31] MEDS: docusate sod 250mg capsule PO SCH ×2 (08:12→20:41)
[2018-12-31] MEDS: PARoxetine 10mg tablet PO SCH (08:12)
[2018-12-31] MEDS: oxybutynin 5mg tablet PO SCH ×2 (08:12→20:41)
[2018-12-31] MEDS: levoTHYROXINE 100mcg tablet PO SCH (08:12)
[2018-12-31] MEDS: pantoprazole 40mg Tablet.DR PO SCH (08:12)
[2018-12-31] MEDS: ascorbic acid 500mg tablet PO SCH (08:13)
[2018-12-31] MEDS: CefTRIAXone/D5W-Rocephin 1gm 50 ML IV SCH (08:13)
[2018-12-31] MEDS: multivitamins, therapeutics tablet PO SCH (08:13)
[2018-12-31] MEDS: calcium carbonate/vitamin D3 tablet PO SCH ×2 (09:21→20:42)
[2018-12-31] MEDS: finasteride 5mg tablet PO SCH (09:21)
--- NOTE | 2018-12-31 09:30 | NUR ---
LAB CALLED PT IS POSITIVE FOR MRSA IN THE NARES
[2018-12-31 11:00] VITALS: BP 100/59
[2018-12-31 15:03] LABS: HEMATOCRIT 24.6 % (42.0-52.0); HEMOGLOBIN 8.5 g/dl (14.0-17.9); MEAN CORPUSCULAR HEMOGLOBIN 35.8 PG (27.0-31.0); MEAN CORPUSCULAR HGB CONC 34.4 g/dL (33.0-36.5); MEAN PLATELET VOLUME 6.6 FL (7.4-10.4); PLATELET COUNT 371 X10'3 (140-440); RED BLOOD COUNT 2.37 X10'6 (4.70-6.10); RED CELL DISTRIBUTION WIDTH 14.8 % (11.5-14.5); WHITE BLOOD COUNT 10.7 X10'3 (4.5-11.0)
[2018-12-31 16:13] LABS: HEMATOCRIT 25.1 % (42.0-52.0); HEMOGLOBIN 8.4 g/dl (14.0-17.9); MEAN CORPUSCULAR HGB CONC 33.6 g/dL (33.0-36.5); MEAN CORPUSCULAR VOLUME 104.1 FL (78-98); MEAN PLATELET VOLUME 6.7 FL (7.4-10.4); PLATELET COUNT 373 X10'3 (140-440); RED BLOOD COUNT 2.41 X10'6 (4.70-6.10); RED CELL DISTRIBUTION WIDTH 14.9 % (11.5-14.5); WHITE BLOOD COUNT 10.8 X10'3 (4.5-11.0)
[2018-12-31] MEDS: normal saline 1000ml 1,000 ML IV SCH ×2 (16:20)
--- NOTE | 2018-12-31 17:56 | NUR ---
Problems reprioritized. Patient report given, questions answered & plan of care reviewed with Gabrielle Nova RN.
--- NOTE | 2018-12-31 18:16 | NUR ---
daughter states she keeps taking him to different doctors and they won't dx him with chet. i asked several questions and the pt answered them appropriately every time. PT also evaluated his mental status and agrees. no sign of dementia just age related forgetfulness
--- NOTE | 2018-12-31 18:18 | NUR ---
Patient in room [facility] 340. I have received report from SHAHLA Berry and had the opportunity to ask questions and assume patient care. Addendum: 12/31/18 at 1818 by Asia Geller RN Amended: Links added.
[2018-12-31 20:00] VITALS: BP 105/53
[2018-12-31] MEDS: lactobacillus rhamnosus 10,000 MMU CELLS/CAPSULE PO SCH (20:41)
[2018-12-31] MEDS: tamsulosin 0.4mg capsule PO SCH (20:41)
[2018-12-31] MEDS: insulin glargine (Lantus) pen - multi-dose SQ SCH (21:00)
[2019-01-01] VITALS: BP 87/50
--- NOTE | 2019-01-01 01:04 | NUR ---
patient was upset and stating that he wants to go home and asking why doctors keeping him at the hospital, educate patient the why he needs to stay here and not ready for discharge and verbalize understanding. 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 pt had low grade temp of 100.2 tylenol given and went down to 98.5. will continue to monitor
[2019-01-01] MEDS: normal saline 1000ml 1,000 ML IV SCH ×2 (05:20→21:23)
[2019-01-01 05:40] LABS: BASOPHILS % (AUTO) 0.4 % (0-1); EOSINOPHILS # (AUTO) 0.2 X10'3 (0-0.9); EOSINOPHILS % (AUTO) 3.1 % (0-6); HEMATOCRIT 22.1 % (42.0-52.0); HEMOGLOBIN 7.7 g/dl (14.0-17.9); LYMPHOCYTES # (AUTO) 1.7 X10'3 (1.1-4.8); LYMPHOCYTES % (AUTO) 21.5 % (21-51); MEAN CORPUSCULAR HEMOGLOBIN 35.7 PG (27.0-31.0); MEAN CORPUSCULAR HGB CONC 34.7 g/dL (33.0-36.5); MEAN CORPUSCULAR VOLUME 102.8 FL (78-98); MEAN PLATELET VOLUME 6.7 FL (7.4-10.4); MONOCYTES # (AUTO) 1.1 X10'3 (0-0.9); MONOCYTES % (AUTO) 13.9 % (2-12); NEUTROPHILS # (AUTO) 4.8 X10'3 (1.8-7.7); NEUTROPHILS % (AUTO) 61.1 % (42-75); PLATELET COUNT 346 X10'3 (140-440); RED BLOOD COUNT 2.15 X10'6 (4.70-6.10); RED CELL DISTRIBUTION WIDTH 14.7 % (11.5-14.5); WHITE BLOOD COUNT 7.8 X10'3 (4.5-11.0)
[2019-01-01 05:44] LABS: ANION GAP 6 (8-16); BLOOD UREA NITROGEN 13 MG/DL (7-18); BUN/CREATININE RATIO 19.1 (5.4-32.0); CHLORIDE 106 MMOL/L (99-107); CREATININE 0.68 MG/DL (0.60-1.10); GLUCOSE 92 MG/DL (70-104); POTASSIUM 3.6 MMOL/L (3.5-5.1); SODIUM 136 MMOL/L (135-145); TOTAL CARBON DIOXIDE 24.2 MMOL/L (24-32)
[2019-01-01 05:45] LABS: ALANINE AMINOTRANSFERASE 10 U/L (12-78); ALBUMIN 1.8 G/DL (3.4-5.0); ALBUMIN/GLOBULIN RATIO 0.7 (1.1-1.5); ALKALINE PHOSPHATASE 71 IU/L (46-116); ASPARTATE AMINO TRANSFERASE 12 U/L (10-37); BILIRUBIN,TOTAL 0.2 MG/DL (0.1-1.0); CALCIUM 7.6 MG/DL (8.5-10.1); MAGNESIUM 1.6 MG/DL (1.5-2.4); TOTAL PROTEIN 4.5 G/DL (6.4-8.2); eGFR > 90 ML/MIN
--- NOTE | 2019-01-01 06:00 | NUR ---
Patient in room [facility]STAL 340. I have received report from Gabrielle GALE and had the opportunity to ask questions and assume patient care.
--- NOTE | 2019-01-01 06:34 | NUR ---
Problems reprioritized. Patient report given, questions answered & plan of care reviewed with SHAHLA Berry. Addendum: 01/01/19 at 0635 by Asia Geller RN Amended: Links added.
[2019-01-01 07:34] VITALS: BP 106/67
[2019-01-01 07:39] LABS: HEMOGLOBIN 7.5 g/dl (14.0-17.9); MEAN CORPUSCULAR HEMOGLOBIN 35.5 PG (27.0-31.0); MEAN CORPUSCULAR HGB CONC 34.3 g/dL (33.0-36.5); MEAN CORPUSCULAR VOLUME 103.6 FL (78-98); MEAN PLATELET VOLUME 6.5 FL (7.4-10.4); PLATELET COUNT 357 X10'3 (140-440); RED CELL DISTRIBUTION WIDTH 14.6 % (11.5-14.5)
[2019-01-01 07:46] LABS: HEMATOCRIT 21.8 % (42.0-52.0)
[2019-01-01] MEDS: K and/or MAG REPLACEMENT MC SCH (08:00)
[2019-01-01 08:01] LABS: HYPOCHROMASIA 1+; PLATELET ESTIMATE NORMAL; POLYCHROMASIA FEW
[2019-01-01] MEDS: multivitamins, therapeutics tablet PO SCH (08:01)
[2019-01-01] MEDS: levoTHYROXINE 100mcg tablet PO SCH (08:01)
[2019-01-01] MEDS: finasteride 5mg tablet PO SCH (08:01)
[2019-01-01] MEDS: ascorbic acid 500mg tablet PO SCH (08:01)
[2019-01-01] MEDS: amiodarone 200mg tablet PO SCH ×2 (08:02→21:24)
[2019-01-01] MEDS: oxybutynin 5mg tablet PO SCH ×2 (08:02→21:25)
[2019-01-01] MEDS: docusate sod 250mg capsule PO SCH ×2 (08:02→21:26)
[2019-01-01] MEDS: pantoprazole 40mg Tablet.DR PO SCH (08:02)
[2019-01-01] MEDS: busPIRone 15mg tablet PO SCH ×2 (08:02→21:26)
[2019-01-01] MEDS: PARoxetine 10mg tablet PO SCH (08:02)
[2019-01-01] MEDS: lactobacillus rhamnosus 10,000 MMU CELLS/CAPSULE PO SCH ×2 (08:03→21:25)
[2019-01-01] MEDS: CefTRIAXone/D5W-Rocephin 1gm 50 ML IV SCH (08:03)
[2019-01-01] MEDS: ipratropium 0.5 MG/2.5ML nebule IH SCH ×3 (09:00→20:56)
[2019-01-01] MEDS: calcium carbonate/vitamin D3 tablet PO SCH ×2 (09:05→18:00)
[2019-01-01 11:00] VITALS: BP 92/50
--- NOTE | 2019-01-01 11:00 | NUR ---
catheter D/C. per doctor Ramirez's orders.
--- NOTE | 2019-01-01 11:30 | NUR ---
bladder scanned pt. No volume
[2019-01-01] MEDS: HYDROmorphone 1 mg/ml syringe IV PRN (12:00)
--- NOTE | 2019-01-01 13:00 | NUR ---
patient was working with PT and he got a skin tear on his right forearm. nurse stri-stripped x2 and put optifoam over it
--- NOTE | 2019-01-01 15:00 | NUR ---
bladder scanned pt. Volume was 384. Will check again in 30 Addendum: 01/01/19 at 1516 by Angelina Henriquez STUDENT RADHIKA encouraging patient to urinate
--- NOTE | 2019-01-01 17:40 | NUR ---
Problems reprioritized. Patient report given, questions answered & plan of care reviewed with SJ GALE.
--- NOTE | 2019-01-01 17:52 | NUR ---
Problems reprioritized. Patient report given, questions answered & plan of care reviewed with Maricarmen GALE.
--- NOTE | 2019-01-01 18:15 | NUR ---
Patient in room [facility]YSTAL 340. I have received report from Kristi GALE and chief nursing executive Angelina. and had the opportunity to ask questions and assume patient care. Patient currently sitting up in bed eating his dinner.
[2019-01-01 19:00] VITALS: BP 85/51
[2019-01-01] MEDS: insulin glargine (Lantus) pen - multi-dose SQ SCH (21:00)
[2019-01-01] MEDS: HYDROcodone/acetaminophen 10/325mg tab PO PRN (21:24)
[2019-01-01] MEDS: tamsulosin 0.4mg capsule PO SCH (21:24)
[2019-01-02] VITALS: BP 103/58
[2019-01-02] MEDS: ipratropium 0.5 MG/2.5ML nebule IH SCH ×4 (02:32→21:09)
[2019-01-02] MEDS: HYDROcodone/acetaminophen 10/325mg tab PO PRN ×2 (04:29→21:39)
[2019-01-02 05:41] LABS: ALANINE AMINOTRANSFERASE 10 U/L (12-78); ALBUMIN 1.8 G/DL (3.4-5.0); ALBUMIN/GLOBULIN RATIO 0.7 (1.1-1.5); ALKALINE PHOSPHATASE 74 IU/L (46-116); ANION GAP 8 (8-16); ASPARTATE AMINO TRANSFERASE 15 U/L (10-37); BILIRUBIN,TOTAL 0.1 MG/DL (0.1-1.0); BLOOD UREA NITROGEN 12 MG/DL (7-18); BUN/CREATININE RATIO 20.7 (5.4-32.0); CALCIUM 7.4 MG/DL (8.5-10.1); CHLORIDE 105 MMOL/L (99-107); CREATININE 0.58 MG/DL (0.60-1.10); GLUCOSE 101 MG/DL (70-104); MAGNESIUM 1.6 MG/DL (1.5-2.4); POTASSIUM 3.9 MMOL/L (3.5-5.1); SODIUM 137 MMOL/L (135-145); TOTAL CARBON DIOXIDE 24.3 MMOL/L (24-32); TOTAL PROTEIN 4.5 G/DL (6.4-8.2); eGFR > 90 ML/MIN
--- NOTE | 2019-01-02 05:52 | NUR ---
Lab just called up that blood sample clotted. Lab will redraw this AM.
--- NOTE | 2019-01-02 06:50 | NUR ---
Problems reprioritized. Patient report given, questions answered & plan of care reviewed with Bernadette GALE.
[2019-01-02 07:26] LABS: BASOPHILS % (AUTO) 0.5 % (0-1); EOSINOPHILS # (AUTO) 0.3 X10'3 (0-0.9); EOSINOPHILS % (AUTO) 3.6 % (0-6); HEMATOCRIT 22.5 % (42.0-52.0); HEMOGLOBIN 7.7 g/dl (14.0-17.9); LYMPHOCYTES # (AUTO) 1.5 X10'3 (1.1-4.8); LYMPHOCYTES % (AUTO) 18.4 % (21-51); MEAN CORPUSCULAR HEMOGLOBIN 35.4 PG (27.0-31.0); MEAN CORPUSCULAR HGB CONC 34.3 g/dL (33.0-36.5); MEAN PLATELET VOLUME 6.7 FL (7.4-10.4); MONOCYTES # (AUTO) 1.2 X10'3 (0-0.9); MONOCYTES % (AUTO) 14.5 % (2-12); NEUTROPHILS # (AUTO) 5.1 X10'3 (1.8-7.7); PLATELET COUNT 344 X10'3 (140-440); RED BLOOD COUNT 2.18 X10'6 (4.70-6.10); RED CELL DISTRIBUTION WIDTH 15.3 % (11.5-14.5)
[2019-01-02 07:30] VITALS: BP 96/51
[2019-01-02] MEDS: ascorbic acid 500mg tablet PO SCH (07:51)
[2019-01-02] MEDS: busPIRone 15mg tablet PO SCH ×2 (07:51→21:37)
[2019-01-02] MEDS: finasteride 5mg tablet PO SCH (07:51)
[2019-01-02] MEDS: levoTHYROXINE 100mcg tablet PO SCH (07:51)
[2019-01-02] MEDS: docusate sod 250mg capsule PO SCH ×2 (07:51→21:39)
[2019-01-02] MEDS: lactobacillus rhamnosus 10,000 MMU CELLS/CAPSULE PO SCH ×2 (07:51→21:39)
[2019-01-02] MEDS: amiodarone 200mg tablet PO SCH ×2 (07:51→21:39)
[2019-01-02] MEDS: multivitamins, therapeutics tablet PO SCH (07:51)
[2019-01-02] MEDS: PARoxetine 10mg tablet PO SCH (07:51)
[2019-01-02] MEDS: oxybutynin 5mg tablet PO SCH ×2 (07:51→21:38)
[2019-01-02] MEDS: pantoprazole 40mg Tablet.DR PO SCH (07:51)
[2019-01-02] MEDS: K and/or MAG REPLACEMENT MC SCH (07:52)
[2019-01-02] MEDS: CefTRIAXone/D5W-Rocephin 1gm 50 ML IV SCH (07:52)
[2019-01-02] MEDS: calcium carbonate/vitamin D3 tablet PO SCH ×2 (09:09→17:53)
[2019-01-02 11:00] VITALS: BP 98/60
[2019-01-02] MEDS: normal saline 1000ml 1,000 ML IV SCH (14:31)
--- NOTE | 2019-01-02 18:15 | NUR ---
Patient in room [facility]STAL 340. I have received report from Bernadette GALE and had the opportunity to ask questions and assume patient care.
--- NOTE | 2019-01-02 18:22 | NUR ---
Problems reprioritized. Patient report given, questions answered & plan of care reviewed with SHAHLA Hernadez.
[2019-01-02 19:00] VITALS: BP 112/78
--- NOTE | 2019-01-02 19:30 | NUR ---
Patient's daughter Polly called in complaining that her dad is confused and keeps on calling her. Daughter stated that some confusion is his baseline, but for some reason he thinks that he will not be coming home. As patient very [place], advised daughter that if possible maybe she could come in to visit her dad. She stated that she would try tomorrow early childhood education coordinator, but it is very difficult for her as she has to look after her mum also (patient's ). I assured her that patient is being taken care of, and in no apparent distress. She asked when he would come home, I advised that patient at this time needs more physical therapy for strengthening.
[2019-01-02] MEDS: insulin glargine (Lantus) pen - multi-dose SQ SCH (21:00)
[2019-01-02] MEDS: tamsulosin 0.4mg capsule PO SCH (21:38)
[2019-01-03] VITALS: BP 117/68
[2019-01-03] MEDS: ipratropium 0.5 MG/2.5ML nebule IH SCH ×4 (02:56→20:33)
[2019-01-03] MEDS: normal saline 1000ml 1,000 ML IV SCH ×2 (03:37→16:58)
[2019-01-03 04:14] LABS: BASOPHILS % (AUTO) 0.4 % (0-1); EOSINOPHILS # (AUTO) 0.3 X10'3 (0-0.9); EOSINOPHILS % (AUTO) 3.3 % (0-6); HEMATOCRIT 23.3 % (42.0-52.0); HEMOGLOBIN 7.9 g/dl (14.0-17.9); LYMPHOCYTES # (AUTO) 1.7 X10'3 (1.1-4.8); LYMPHOCYTES % (AUTO) 21.6 % (21-51); MEAN CORPUSCULAR HEMOGLOBIN 35.1 PG (27.0-31.0); MEAN CORPUSCULAR VOLUME 103.2 FL (78-98); MEAN PLATELET VOLUME 6.4 FL (7.4-10.4); MONOCYTES % (AUTO) 12.8 % (2-12); NEUTROPHILS # (AUTO) 4.8 X10'3 (1.8-7.7); NEUTROPHILS % (AUTO) 61.9 % (42-75); PLATELET COUNT 350 X10'3 (140-440); RED BLOOD COUNT 2.26 X10'6 (4.70-6.10); RED CELL DISTRIBUTION WIDTH 15.5 % (11.5-14.5); WHITE BLOOD COUNT 7.7 X10'3 (4.5-11.0)
[2019-01-03 04:27] LABS: ALANINE AMINOTRANSFERASE 8 U/L (12-78); ALBUMIN 1.8 G/DL (3.4-5.0); ALBUMIN/GLOBULIN RATIO 0.6 (1.1-1.5); ALKALINE PHOSPHATASE 71 IU/L (46-116); ANION GAP 6 (8-16); ASPARTATE AMINO TRANSFERASE 10 U/L (10-37); BILIRUBIN,TOTAL 0.2 MG/DL (0.1-1.0); BLOOD UREA NITROGEN 10 MG/DL (7-18); BUN/CREATININE RATIO 16.7 (5.4-32.0); CALCIUM 7.7 MG/DL (8.5-10.1); CHLORIDE 106 MMOL/L (99-107); GLUCOSE 84 MG/DL (70-104); MAGNESIUM 1.5 MG/DL (1.5-2.4); POTASSIUM 3.5 MMOL/L (3.5-5.1); SODIUM 136 MMOL/L (135-145); TOTAL CARBON DIOXIDE 24.4 MMOL/L (24-32); TOTAL PROTEIN 4.8 G/DL (6.4-8.2); eGFR > 90 ML/MIN
[2019-01-03] MEDS: magnesium hydroxide 30ml (MOM) UD suspension PO PRN ×2 (05:11→21:45)
--- NOTE | 2019-01-03 05:30 | NUR ---
Patient was given MOM for no BM since 12/29 and BS hypo.. Patient also bladder scanned as precaution as belly large and distended. Only 9cc in bladder at this time.
--- NOTE | 2019-01-03 06:47 | NUR ---
Problems reprioritized. Patient report given, questions answered & plan of care reviewed with Bernadette GALE.
[2019-01-03 07:10] VITALS: BP 120/63
[2019-01-03] MEDS: K and/or MAG REPLACEMENT MC SCH (08:00)
[2019-01-03] MEDS: finasteride 5mg tablet PO SCH (08:02)
[2019-01-03] MEDS: amiodarone 200mg tablet PO SCH ×2 (08:02→21:36)
[2019-01-03] MEDS: HYDROcodone/acetaminophen 10/325mg tab PO PRN ×2 (08:02→21:35)
[2019-01-03] MEDS: busPIRone 15mg tablet PO SCH ×2 (08:02→21:33)
[2019-01-03] MEDS: multivitamins, therapeutics tablet PO SCH (08:02)
[2019-01-03] MEDS: pantoprazole 40mg Tablet.DR PO SCH (08:02)
[2019-01-03] MEDS: levoTHYROXINE 100mcg tablet PO SCH (08:02)
[2019-01-03] MEDS: ascorbic acid 500mg tablet PO SCH (08:02)
[2019-01-03] MEDS: oxybutynin 5mg tablet PO SCH ×2 (08:03→21:33)
[2019-01-03] MEDS: docusate sod 250mg capsule PO SCH ×2 (08:03→21:33)
[2019-01-03] MEDS: lactobacillus rhamnosus 10,000 MMU CELLS/CAPSULE PO SCH ×2 (08:03→21:33)
[2019-01-03] MEDS: PARoxetine 10mg tablet PO SCH (08:07)
[2019-01-03] MEDS: calcium carbonate/vitamin D3 tablet PO SCH ×2 (08:07→17:44)
[2019-01-03] MEDS: CefTRIAXone/D5W-Rocephin 1gm 50 ML IV SCH (08:08)
[2019-01-03 12:45] VITALS: BP 89/56
--- NOTE | 2019-01-03 13:25 | NUR ---
Called Dr. South for Dr. Dumont about estrada catheter. Brannon stated patient will discharge with the estrada catheter and follow up in his office 1 month from now. Will update Dr. Dumont.
--- NOTE | 2019-01-03 18:15 | NUR ---
Problems reprioritized. Patient report given, questions answered & plan of care reviewed with SHAHLA GUSTAFSON.
--- NOTE | 2019-01-03 18:42 | NUR ---
Patient in room [facility]YSTAL 340. I have received report from Dominga GALE and had the opportunity to ask questions and assume patient care.
[2019-01-03 20:00] VITALS: BP 99/59
[2019-01-03] MEDS: insulin glargine (Lantus) pen - multi-dose SQ SCH (21:00)
[2019-01-03] MEDS: tamsulosin 0.4mg capsule PO SCH (21:32)
[2019-01-04] VITALS: BP 107/67
[2019-01-04] MEDS: ipratropium 0.5 MG/2.5ML nebule IH SCH ×4 (03:22→21:06)
[2019-01-04 05:58] LABS: BASOPHILS % (AUTO) 0.3 % (0-1); EOSINOPHILS # (AUTO) 0.2 X10'3 (0-0.9); EOSINOPHILS % (AUTO) 2.4 % (0-6); HEMATOCRIT 22.5 % (42.0-52.0); HEMOGLOBIN 7.8 g/dl (14.0-17.9); LYMPHOCYTES # (AUTO) 1.6 X10'3 (1.1-4.8); LYMPHOCYTES % (AUTO) 18.6 % (21-51); MEAN CORPUSCULAR HEMOGLOBIN 35.9 PG (27.0-31.0); MEAN CORPUSCULAR HGB CONC 34.5 g/dL (33.0-36.5); MEAN CORPUSCULAR VOLUME 104.2 FL (78-98); MEAN PLATELET VOLUME 6.8 FL (7.4-10.4); MONOCYTES % (AUTO) 12.1 % (2-12); NEUTROPHILS # (AUTO) 5.6 X10'3 (1.8-7.7); NEUTROPHILS % (AUTO) 66.6 % (42-75); PLATELET COUNT 375 X10'3 (140-440); RED BLOOD COUNT 2.16 X10'6 (4.70-6.10); RED CELL DISTRIBUTION WIDTH 15.2 % (11.5-14.5); WHITE BLOOD COUNT 8.4 X10'3 (4.5-11.0)
[2019-01-04 06:02] LABS: ALANINE AMINOTRANSFERASE 7 U/L (12-78); ALBUMIN 1.8 G/DL (3.4-5.0); ALBUMIN/GLOBULIN RATIO 0.6 (1.1-1.5); ALKALINE PHOSPHATASE 71 IU/L (46-116); ANION GAP 8 (8-16); ASPARTATE AMINO TRANSFERASE 14 U/L (10-37); BILIRUBIN,TOTAL 0.3 MG/DL (0.1-1.0); BLOOD UREA NITROGEN 15 MG/DL (7-18); CALCIUM 7.5 MG/DL (8.5-10.1); CHLORIDE 103 MMOL/L (99-107); GLUCOSE 87 MG/DL (70-104); MAGNESIUM 1.8 MG/DL (1.5-2.4); POTASSIUM 3.7 MMOL/L (3.5-5.1); SODIUM 136 MMOL/L (135-145); TOTAL PROTEIN 4.8 G/DL (6.4-8.2); eGFR > 90 ML/MIN
[2019-01-04] MEDS: HYDROcodone/acetaminophen 10/325mg tab PO PRN ×2 (06:04→21:58)
[2019-01-04] MEDS: normal saline 1000ml 1,000 ML IV SCH ×2 (06:04→18:46)
--- NOTE | 2019-01-04 06:55 | NUR ---
Patient in room CRYSTAL 358. I have received report from Carolyn GALE and had the opportunity to ask questions and assume patient care.
--- NOTE | 2019-01-04 06:56 | NUR ---
Received report from SHAHLA Hernadez. Patient is awake and alert on 2L NC, in no apparent distress. Call light and items of frequent use within reach. Will continue to monitor.
[2019-01-04] MEDS: pantoprazole 40mg Tablet.DR PO SCH (07:41)
[2019-01-04] MEDS: ascorbic acid 500mg tablet PO SCH (07:41)
[2019-01-04] MEDS: PARoxetine 10mg tablet PO SCH (07:41)
[2019-01-04] MEDS: levoTHYROXINE 100mcg tablet PO SCH (07:41)
[2019-01-04] MEDS: lactobacillus rhamnosus 10,000 MMU CELLS/CAPSULE PO SCH ×2 (07:41→21:56)
[2019-01-04] MEDS: docusate sod 250mg capsule PO SCH ×2 (07:41→21:56)
[2019-01-04] MEDS: oxybutynin 5mg tablet PO SCH ×2 (07:41→21:56)
[2019-01-04] MEDS: amiodarone 200mg tablet PO SCH ×2 (07:41→21:56)
[2019-01-04] MEDS: finasteride 5mg tablet PO SCH (07:41)
[2019-01-04] MEDS: busPIRone 15mg tablet PO SCH ×2 (07:41→21:55)
[2019-01-04] MEDS: multivitamins, therapeutics tablet PO SCH (07:41)
[2019-01-04] MEDS: CefTRIAXone/D5W-Rocephin 1gm 50 ML IV SCH (07:42)
[2019-01-04] MEDS: K and/or MAG REPLACEMENT MC SCH (07:47)
[2019-01-04 08:00] VITALS: BP 110/66
[2019-01-04] MEDS: calcium carbonate/vitamin D3 tablet PO SCH ×2 (09:04→18:48)
[2019-01-04 12:00] VITALS: BP 84/57
--- NOTE | 2019-01-04 13:02 | NUR ---
Problems reprioritized. Patient report given, questions answered & plan of care reviewed with SHAHLA Angela.
--- NOTE | 2019-01-04 13:13 | NUR ---
Patient in room CRYSTAL 358. I have received report from Carolyn GALE and had the opportunity to ask questions and assume patient care.
[2019-01-04] MEDS ORDERED: CefTRIAXone/D5W-Rocephin 1gm 50 ML IV SCH (13:35)
--- NOTE | 2019-01-04 15:30 | NUR ---
Initial: Pt admit with hematuria and anemia possibly secondary to significant hematuria per H&P. Hematuria now resolved per MD notes. Pt currently on a CHO controlled diet with documented PO intake averaging 50%. Pt without a BM since 12/29 likely contributing to lower PO intake. Pt with routine Colace and MoM PRN just given 01/03. Pt with hx DM, current A1c is 5.7; DM education not warranted at this time. Will continue to follow. Recommendations: 1) Continue CHO controlled diet 2) Monitor need for ONS 3) Routine bowel care; monitor need for additional 4) Wt per rx Addendum: 01/04/19 at [address] Amended: Links added.
--- NOTE | 2019-01-04 18:30 | NUR ---
Patient in room CRYSTAL 358. I have received report from SHLOMO GALE and had the opportunity to ask questions and assume patient care.
--- NOTE | 2019-01-04 18:40 | NUR ---
Problems reprioritized. Patient report given, questions answered & plan of care reviewed with Ana Lilia Sung RN.
[2019-01-04 20:00] VITALS: BP 109/72
[2019-01-04] MEDS: insulin glargine (Lantus) pen - multi-dose SQ SCH (21:00)
[2019-01-04] MEDS ORDERED: polyethylene glycol 3350 17gm powd pack PO SCH (21:00)
[2019-01-04] MEDS: tamsulosin 0.4mg capsule PO SCH (21:56)
[2019-01-05] VITALS: BP 108/63
[2019-01-05] MEDS: ipratropium 0.5 MG/2.5ML nebule IH SCH ×2 (02:42→08:10)
[2019-01-05] MEDS: normal saline 1000ml 1,000 ML IV SCH (05:58)
--- NOTE | 2019-01-05 06:30 | NUR ---
Problems reprioritized. Patient report given, questions answered & plan of care reviewed with SHLOMO GALE.
[2019-01-05 07:13] VITALS: BP 113/68
[2019-01-05] MEDS: K and/or MAG REPLACEMENT MC SCH (08:00)
[2019-01-05] MEDS ORDERED: CefTRIAXone/D5W-Rocephin 1gm 50 ML IV SCH (08:00)
--- NOTE | 2019-01-05 08:00 | NUR ---
No labs drawn today
[2019-01-05] MEDS ORDERED: benzocaine/menthol oral lozeng 1 EACH BOX MM PRN (09:20)
[2019-01-05] MEDS: docusate sod 250mg capsule PO SCH (09:43)
[2019-01-05] MEDS: amiodarone 200mg tablet PO SCH (09:43)
[2019-01-05] MEDS: levoTHYROXINE 100mcg tablet PO SCH (09:43)
[2019-01-05] MEDS: magnesium hydroxide 30ml (MOM) UD suspension PO PRN (09:43)
[2019-01-05] MEDS: lactobacillus rhamnosus 10,000 MMU CELLS/CAPSULE PO SCH (09:43)
[2019-01-05] MEDS: ascorbic acid 500mg tablet PO SCH (09:43)
[2019-01-05] MEDS: finasteride 5mg tablet PO SCH (09:43)
[2019-01-05] MEDS: calcium carbonate/vitamin D3 tablet PO SCH (09:43)
[2019-01-05] MEDS: PARoxetine 10mg tablet PO SCH (09:43)
[2019-01-05] MEDS: multivitamins, therapeutics tablet PO SCH (09:44)
[2019-01-05] MEDS: busPIRone 15mg tablet PO SCH (09:44)
[2019-01-05] MEDS: pantoprazole 40mg Tablet.DR PO SCH (09:44)
[2019-01-05] MEDS: oxybutynin 5mg tablet PO SCH (09:44)
[2019-01-05] MEDS ORDERED: HYDROcodone/acetaminophen 10/325mg tab PO PRN (09:50)
--- NOTE | 2019-01-05 10:41 | NUR ---
Awaiting case managment and possible transfer to [facility]
[2019-01-05 11:00] VITALS: BP 125/68
--- NOTE | 2019-01-05 13:00 | NUR ---
Called Report to Yudith BRENNAN at [facility] all questions. Pictures taken of patients skin tear on left forearm and dressing change. Patients Ramsey emptied for discharge. Patients IV dc'd cannula intact. Patients belongings sent with patient including hearing aide.
[2019-01-05] MEDS ORDERED: ferrous sulfate 325mg tablet PO SCH (17:00)
== END 2019-01-05 13:26 | DRG 264 ==
LOC: ER 13:44 → ED HOLD 12-30 02:58 → SUR 3N 12-30 03:10
PROVIDERS: ADMIT Family Medicine; ATTEND Internal Medicine
PROC: 0TCB8ZZ Extirpation of Matter from Bladder, Via Natural or Artificial Opening Endoscopic (ICD-10-PCS; 2018-12-30)
PROC: 0W3R8ZZ Control Bleeding in Genitourinary Tract, Via Natural or Artificial Opening Endoscopic (ICD-10-PCS; principal; 2018-12-30 14:00)
DX: I86.8 Varicose veins of other specified sites (principal); N02.9 Recurrent and persistent hematuria with unspecified morphologic changes; D62 Acute posthemorrhagic anemia; J44.9 Chronic obstructive pulmonary disease, unspecified; E11.9 Type 2 diabetes mellitus without complications; G89.29 Other chronic pain; H91.90 Unspecified hearing loss, unspecified ear; I11.0 Hypertensive heart disease with heart failure; I48.2 Chronic atrial fibrillation; M54.5 Low back pain; F03.90 Unspecified dementia, unspecified severity, without behavioral disturbance, psychotic disturbance, mood disturbance, and anxiety; I50.9 Heart failure, unspecified; Z96.652 Presence of left artificial knee joint; Z90.49 Acquired absence of other specified parts of digestive tract; Z88.0 Allergy status to penicillin; Z88.1 Allergy status to other antibiotic agents; Z88.2 Allergy status to sulfonamides; Z88.8 Allergy status to other drugs, medicaments and biological substances; Z79.82 Long term (current) use of aspirin; Z79.4 Long term (current) use of insulin; Z85.819 Personal history of malignant neoplasm of unspecified site of lip, oral cavity, and pharynx; Z86.73 Personal history of transient ischemic attack (TIA), and cerebral infarction without residual deficits; Z86.74 Personal history of sudden cardiac arrest; Z87.891 Personal history of nicotine dependence
CPT/HCPCS: 36415; 71045; 80053; 82948; 83036; 83605; 83735; 84145; 84443; 85025; 85027; 85610; 86885; 86900; 86901; 87070; 93005; 94640; 94760; 97110; 97116; 97161; 97530; 99285; A4346; A4402; G0378; J0696; J1170; J1815; J2001; J2405; J2704; J2710; J3010; J3490; J7030; J7120

== ENCOUNTER 2019-05-13 14:03 | Emergency (ER) | payer MEDICARE, MEDICAID ==
[~2019-05-13] VITALS: Ht 170.2 cm; Wt 65.0 kg
[~2019-05-13 14:03] MED LIST changes: -AMIO200T40 PO; +AMIO200T61 PO; +BUSP10TA11 PO; -BUSP5TAB3 PO; -CIPR-230 PO; -CYAN500T46 PO; +DOCU-329 PO; -DOCU250C4 PO; +HYDR-4353 PO; -MEGE400O2 PO; -OMEP20CA10 PO; +OMEP20CA11 PO; -OXYB5TAB11 PO; +OXYB5TAB16 PO
--- NOTE | 2019-05-13 15:01 | NUR ---
FLUSHED BRADLEY CATHETER WITH 60 MLS OF STERILE WATER, PT COMPLAINED OF BURNING SENSATION IN PENIS.
[2019-05-13 15:03] LABS: BASOPHILS % (AUTO) 0.4 % (0-1); EOSINOPHILS # (AUTO) 0.2 X10'3 (0-0.9); EOSINOPHILS % (AUTO) 2.4 % (0-6); HEMATOCRIT 30.9 % (42.0-52.0); HEMOGLOBIN 10.3 g/dl (14.0-17.9); LYMPHOCYTES # (AUTO) 1.9 X10'3 (1.1-4.8); LYMPHOCYTES % (AUTO) 25.4 % (21-51); MEAN CORPUSCULAR HEMOGLOBIN 31.8 PG (27.0-31.0); MEAN CORPUSCULAR HGB CONC 33.4 g/dL (33.0-36.5); MEAN CORPUSCULAR VOLUME 95.2 FL (78-98); MEAN PLATELET VOLUME 6.7 FL (7.4-10.4); MONOCYTES # (AUTO) 0.8 X10'3 (0-0.9); NEUTROPHILS # (AUTO) 4.5 X10'3 (1.8-7.7); NEUTROPHILS % (AUTO) 60.8 % (42-75); PLATELET COUNT 266 X10'3 (140-440); RED BLOOD COUNT 3.24 X10'6 (4.70-6.10); RED CELL DISTRIBUTION WIDTH 15.4 % (11.5-14.5); WHITE BLOOD COUNT 7.4 X10'3 (4.5-11.0)
[2019-05-13 15:04] LABS: CLARITY,URINE TURBID (Clear); COLOR,URINE RED (Yellow); GLUCOSE, URINE NEGATIVE (Neg); KETONES,URINE 15 mg/dl (Neg); LEUKOCYTE ESTERASE ,URINE MODERATE (Neg); OCCULT BLOOD,URINE LARGE (Neg); PH,URINE 7.5 (4.8-8.0); PROTEIN,URINE >=300 mg/dl (Neg)
[2019-05-13 15:10] LABS: UA COLLECTION TYPE FOLEY CATH
[2019-05-13 15:11] LABS: WBC,URINE 20-30 /HPF (0-4)
[2019-05-13 15:12] LABS: BACTERIA,URINE NONE SEEN /HPF (Neg); MUCUS STRANDS NONE SEEN /LPF (Neg); RBC,URINE TNTC /HPF (0-2); SQUAMOUS EPITHELIAL CELL,UR NONE SEEN /LPF (FEW)
[2019-05-13 15:16] LABS: ALANINE AMINOTRANSFERASE 16 U/L (12-78); ALBUMIN 2.7 G/DL (3.4-5.0); ALBUMIN/GLOBULIN RATIO 0.8 (1.1-1.5); ALKALINE PHOSPHATASE 98 IU/L (46-116); ANION GAP 5 (8-16); ASPARTATE AMINO TRANSFERASE 16 U/L (10-37); BILIRUBIN,TOTAL 0.4 MG/DL (0.1-1.0); BLOOD UREA NITROGEN 19 MG/DL (7-18); BUN/CREATININE RATIO 26.4 (5.4-32.0); CALCIUM 8.2 MG/DL (8.5-10.1); CHLORIDE 102 MMOL/L (99-107); CREATININE 0.72 MG/DL (0.60-1.10); GLUCOSE 82 MG/DL (70-104); POTASSIUM 4.5 MMOL/L (3.5-5.1); SODIUM 134 MMOL/L (135-145); eGFR > 90 ML/MIN
[2019-05-13] MEDS ORDERED: HYDROcodone/acetaminophen 10/325mg tab PO ONE (16:00)
[2019-05-13] MEDS ORDERED: tranexamic acid 100mg/ml inj. TP ONE (16:10)
[2019-05-13] MEDS ORDERED: LIDOcaine 1% W/epiNEPHrine 1:100,000 20ml vial SQ ONE (16:10)
[2019-05-13 16:37] LABS: BASOPHILS % (AUTO) 0.5 % (0-1); EOSINOPHILS # (AUTO) 0.2 X10'3 (0-0.9); HEMATOCRIT 31.4 % (42.0-52.0); HEMOGLOBIN 10.5 g/dl (14.0-17.9); LYMPHOCYTES # (AUTO) 2.1 X10'3 (1.1-4.8); LYMPHOCYTES % (AUTO) 31.9 % (21-51); MEAN CORPUSCULAR HEMOGLOBIN 31.8 PG (27.0-31.0); MEAN CORPUSCULAR HGB CONC 33.4 g/dL (33.0-36.5); MEAN CORPUSCULAR VOLUME 95.1 FL (78-98); MEAN PLATELET VOLUME 6.7 FL (7.4-10.4); MONOCYTES # (AUTO) 0.8 X10'3 (0-0.9); MONOCYTES % (AUTO) 11.5 % (2-12); NEUTROPHILS # (AUTO) 3.5 X10'3 (1.8-7.7); NEUTROPHILS % (AUTO) 53.1 % (42-75); PLATELET COUNT 253 X10'3 (140-440); RED CELL DISTRIBUTION WIDTH 15.3 % (11.5-14.5); WHITE BLOOD COUNT 6.6 X10'3 (4.5-11.0)
--- NOTE | 2019-05-13 17:10 | NUR ---
LET PT'S CATHETER DRAIN AGAIN. MD BERNSTEIN WANTS TO WAIT FOR A LITTLE BIT AND SEE WHAT COLOR THE URINE IS IN A FEW MIN.
[2019-05-13 19:49] VITALS: BP 129/79
--- NOTE | 2019-05-13 20:30 | NUR ---
Pt's daughter at bedside to diamond picker Pt. Blood output still in estrada bag. MD made aware, in to assess Pt. MD to make f/u call to Dr. Serna to discuss further.
[2019-05-13] MEDS ORDERED: FINA5TAB11 PO (20:43)
== END 2019-05-13 20:57 | disposition home or self-care (01) ==
LOC: ER 14:04
DX: R31.9 Hematuria, unspecified (principal); I11.0 Hypertensive heart disease with heart failure; I50.9 Heart failure, unspecified; F03.90 Unspecified dementia, unspecified severity, without behavioral disturbance, psychotic disturbance, mood disturbance, and anxiety; J44.9 Chronic obstructive pulmonary disease, unspecified; E11.9 Type 2 diabetes mellitus without complications; G89.29 Other chronic pain; M10.9 Gout, unspecified; Z90.49 Acquired absence of other specified parts of digestive tract; Z98.890 Other specified postprocedural states; Z88.0 Allergy status to penicillin; Z88.2 Allergy status to sulfonamides; Z88.5 Allergy status to narcotic agent; Z79.82 Long term (current) use of aspirin; Z79.899 Other long term (current) drug therapy
CPT/HCPCS: 36415; 80053; 81001; 85025; 85610; 87088; 96372; 99284

== ENCOUNTER 2019-05-14 12:42 | Emergency (ER) | payer MEDICARE, MEDICAID ==
[~2019-05-14] VITALS: Ht 162.6 cm; Wt 63.0 kg
[~2019-05-14 12:42] MED LIST changes: +FINA5TAB11 PO
[2019-05-14] MEDS ORDERED: HYDROcodone/acetaminophen 10/325mg tab PO ONE (14:05)
[2019-05-14 14:27] LABS: BASOPHILS % (AUTO) 0.4 % (0-1); EOSINOPHILS # (AUTO) 0.2 X10'3 (0-0.9); HEMATOCRIT 30.8 % (42.0-52.0); HEMOGLOBIN 10.5 g/dl (14.0-17.9); LYMPHOCYTES # (AUTO) 1.8 X10'3 (1.1-4.8); LYMPHOCYTES % (AUTO) 22.5 % (21-51); MEAN CORPUSCULAR HEMOGLOBIN 32.4 PG (27.0-31.0); MEAN CORPUSCULAR VOLUME 95.4 FL (78-98); MEAN PLATELET VOLUME 6.7 FL (7.4-10.4); MONOCYTES # (AUTO) 0.6 X10'3 (0-0.9); MONOCYTES % (AUTO) 7.6 % (2-12); NEUTROPHILS # (AUTO) 5.5 X10'3 (1.8-7.7); NEUTROPHILS % (AUTO) 67.5 % (42-75); PLATELET COUNT 289 X10'3 (140-440); RED BLOOD COUNT 3.23 X10'6 (4.70-6.10); RED CELL DISTRIBUTION WIDTH 15.5 % (11.5-14.5); WHITE BLOOD COUNT 8.1 X10'3 (4.5-11.0)
[2019-05-14 14:38] LABS: ALANINE AMINOTRANSFERASE 16 U/L (12-78); ALBUMIN 2.8 G/DL (3.4-5.0); ALBUMIN/GLOBULIN RATIO 0.8 (1.1-1.5); ALKALINE PHOSPHATASE 106 IU/L (46-116); ANION GAP 8 (8-16); ASPARTATE AMINO TRANSFERASE 16 U/L (10-37); BILIRUBIN,TOTAL 0.4 MG/DL (0.1-1.0); BLOOD UREA NITROGEN 16 MG/DL (7-18); BUN/CREATININE RATIO 20.5 (5.4-32.0); CALCIUM 8.2 MG/DL (8.5-10.1); CHLORIDE 104 MMOL/L (99-107); CREATININE 0.78 MG/DL (0.60-1.10); GLUCOSE 111 MG/DL (70-104); POTASSIUM 4.4 MMOL/L (3.5-5.1); SODIUM 138 MMOL/L (135-145); TOTAL CARBON DIOXIDE 26.5 MMOL/L (24-32); TOTAL PROTEIN 6.2 G/DL (6.4-8.2); eGFR > 90 ML/MIN
[2019-05-14 14:55] LABS: CLARITY,URINE TURBID (Clear); COLOR,URINE RED (Yellow); PH,URINE 7.5 (4.8-8.0)
[2019-05-14 14:56] LABS: UA COLLECTION TYPE FOLEY CATH
[2019-05-14 14:58] LABS: BACTERIA,URINE FEW /HPF (Neg); MUCUS STRANDS NONE SEEN /LPF (Neg); RBC,URINE TNTC /HPF (0-2); SQUAMOUS EPITHELIAL CELL,UR NONE SEEN /LPF (FEW)
--- NOTE | 2019-05-14 15:10 | NUR ---
DR. GREEN AT BEDSIDE.
--- NOTE | 2019-05-14 16:03 | NUR ---
CALL TO DAUGHTER ANTNOI AT THIS TIME TO COME ENTERPRISE INTEGRATION ARCHITECT PATIENT. DAUGHTER ON HER WAY, PATIENT MADE AWARE.
[2019-05-14] MEDS ORDERED: HYDROcodone/acetaminophen 5mg/325mg tablet PO ONE (16:10)
[2019-05-14 16:28] VITALS: BP 102/66
== END 2019-05-14 16:43 | disposition home or self-care (01) ==
LOC: ER 12:43
DX: T83.83XA Hemorrhage due to genitourinary prosthetic devices, implants and grafts, initial encounter (principal); R31.0 Gross hematuria; F03.90 Unspecified dementia, unspecified severity, without behavioral disturbance, psychotic disturbance, mood disturbance, and anxiety; I11.0 Hypertensive heart disease with heart failure; I50.9 Heart failure, unspecified; J44.9 Chronic obstructive pulmonary disease, unspecified; E11.9 Type 2 diabetes mellitus without complications; G89.29 Other chronic pain; M10.9 Gout, unspecified; Z90.49 Acquired absence of other specified parts of digestive tract; Z98.890 Other specified postprocedural states; Z88.0 Allergy status to penicillin; Z88.2 Allergy status to sulfonamides; Z88.5 Allergy status to narcotic agent; Z79.2 Long term (current) use of antibiotics; Z79.899 Other long term (current) drug therapy; Y84.6 Urinary catheterization as the cause of abnormal reaction of the patient, or of later complication, without mention of misadventure at the time of the procedure; Y92.89 Other specified places as the place of occurrence of the external cause
CPT/HCPCS: 36415; 51702; 80053; 81001; 85025; 87077; 87088; 87186; 93005; 99284

== ENCOUNTER 2019-05-15 12:00 | Emergency (ER) | payer MEDICARE, MEDICAID ==
[~2019-05-15] VITALS: Ht 170.2 cm; Wt 68.0 kg
[2019-05-15] MEDS ORDERED: fentaNYL/PF 50MCG/1 ML 2ML syringe IV ONE (12:55)
[2019-05-15] MEDS ORDERED: normal saline 1000ML IV soln IVB ONE (14:15)
[2019-05-15 15:16] VITALS: BP 148/80
== END 2019-05-15 15:19 | disposition home or self-care (01) ==
LOC: ER 12:00
DX: T83.098A Other mechanical complication of other urinary catheter, initial encounter (principal); F03.90 Unspecified dementia, unspecified severity, without behavioral disturbance, psychotic disturbance, mood disturbance, and anxiety; I11.0 Hypertensive heart disease with heart failure; I50.9 Heart failure, unspecified; J44.9 Chronic obstructive pulmonary disease, unspecified; E11.9 Type 2 diabetes mellitus without complications; G89.29 Other chronic pain; M10.9 Gout, unspecified; Z90.49 Acquired absence of other specified parts of digestive tract; Z98.890 Other specified postprocedural states; Z88.0 Allergy status to penicillin; Z88.2 Allergy status to sulfonamides; Z88.1 Allergy status to other antibiotic agents; Z88.5 Allergy status to narcotic agent; Z79.82 Long term (current) use of aspirin; Z79.899 Other long term (current) drug therapy; Y84.6 Urinary catheterization as the cause of abnormal reaction of the patient, or of later complication, without mention of misadventure at the time of the procedure; Y92.89 Other specified places as the place of occurrence of the external cause
CPT/HCPCS: 96374; 99284; J3010; J7040

== ENCOUNTER 2019-08-07 17:42 | Emergency (ER) | payer MEDICARE, MEDICAID ==
[~2019-08-07] VITALS: Ht 170.2 cm; Wt 68.2 kg
[~2019-08-07 17:42] MED LIST changes: -NITR100C6 PO
--- NOTE | 2019-08-07 19:49 | NUR ---
18FR BRADLEY REPLACED WITH A 18FR BRADLEY. PT TOLERATED WELL
[2019-08-07] MEDS ORDERED: CEPH-572 PO (20:39)
[2019-08-07 20:56] LABS: CLARITY,URINE SLIGHTLY CLOUDY (Clear); COLOR,URINE Red (Yellow); UA COLLECTION TYPE FOLEY CATH
[2019-08-07 21:05] LABS: RBC,URINE TNTC /HPF (0-2)
[2019-08-07 21:06] VITALS: BP 135/75
[2019-08-07 21:06] LABS: BACTERIA,URINE NONE SEEN /HPF (Neg); SQUAMOUS EPITHELIAL CELL,UR NONE SEEN /LPF (FEW)
--- NOTE | 2019-08-11 16:54 | NUR ---
CALLED LEFT MESSAGE FOR PT. TO CALL BACK. IF PT. NOT FEELING BETTER CALL IN KEFLEX 500MG PO BID X 5 DAYS. IF FEELING BETTER DO NOTHING
== END 2019-08-07 21:57 | disposition home or self-care (01) ==
LOC: ER 17:42
DX: T83.038A Leakage of other urinary catheter, initial encounter (principal); R31.9 Hematuria, unspecified; I11.0 Hypertensive heart disease with heart failure; I50.9 Heart failure, unspecified; J44.9 Chronic obstructive pulmonary disease, unspecified; E11.9 Type 2 diabetes mellitus without complications; F03.90 Unspecified dementia, unspecified severity, without behavioral disturbance, psychotic disturbance, mood disturbance, and anxiety; G89.29 Other chronic pain; M10.9 Gout, unspecified; Z90.49 Acquired absence of other specified parts of digestive tract; Z98.890 Other specified postprocedural states; Y84.6 Urinary catheterization as the cause of abnormal reaction of the patient, or of later complication, without mention of misadventure at the time of the procedure; Y92.89 Other specified places as the place of occurrence of the external cause
CPT/HCPCS: 51702; 81001; 87077; 87088; 87186; 99284

== ENCOUNTER 2019-08-08 12:00 | Emergency (ER) | payer MEDICARE, MEDICAID ==
[~2019-08-08] VITALS: Ht 170.2 cm; Wt 69.0 kg
[~2019-08-08 12:00] MED LIST changes: +CEPH-572 PO
[2019-08-08 13:38] LABS: BASOPHILS % (AUTO) 0.8 % (0-1); EOSINOPHILS # (AUTO) 0.1 X10'3 (0-0.9); EOSINOPHILS % (AUTO) 1.9 % (0-6); HEMOGLOBIN 8.8 g/dl (14.0-17.9); LYMPHOCYTES # (AUTO) 1.8 X10'3 (1.1-4.8); LYMPHOCYTES % (AUTO) 30.9 % (21-51); MEAN CORPUSCULAR HEMOGLOBIN 25.6 PG (27.0-31.0); MEAN CORPUSCULAR HGB CONC 32.6 g/dL (33.0-36.5); MEAN CORPUSCULAR VOLUME 78.7 FL (78-98); MEAN PLATELET VOLUME 6.7 FL (7.4-10.4); MONOCYTES # (AUTO) 0.7 X10'3 (0-0.9); MONOCYTES % (AUTO) 12.9 % (2-12); NEUTROPHILS % (AUTO) 53.5 % (42-75); PLATELET COUNT 325 X10'3 (140-440); RED BLOOD COUNT 3.43 X10'6 (4.70-6.10); RED CELL DISTRIBUTION WIDTH 18.7 % (11.5-14.5); WHITE BLOOD COUNT 5.7 X10'3 (4.5-11.0)
[2019-08-08 13:50] LABS: ALBUMIN 2.9 G/DL (3.4-5.0); ANION GAP 8 (8-16); BLOOD UREA NITROGEN 16 MG/DL (7-18); BUN/CREATININE RATIO 24.2 (5.4-32.0); CALCIUM 8.2 MG/DL (8.5-10.1); CHLORIDE 103 MMOL/L (99-107); CREATININE 0.66 MG/DL (0.60-1.10); GLUCOSE 86 MG/DL (70-104); POTASSIUM 4.1 MMOL/L (3.5-5.1); SODIUM 137 MMOL/L (135-145); TOTAL CARBON DIOXIDE 25.9 MMOL/L (24-32); eGFR > 90 ML/MIN
[2019-08-08 14:02] LABS: ANISOCYTOSIS 2+; HYPOCHROMASIA 1+; MICROCYTOSIS 1+; PLATELET ESTIMATE NORMAL
[2019-08-08] MEDS ORDERED: HYDROcodone/acetaminophen 10/325mg tab PO ONE (14:55)
[2019-08-08 15:24] VITALS: BP 110/69
--- NOTE | 2019-08-08 15:36 | NUR ---
PT'S DAUGHTER CALLED, NOTIFIED THAT PT IS READY TO GO HOME. RECOMMENDED THAT SHE CALL DR WAHL TO GET A F/U APPT JURGEN.
== END 2019-08-08 16:29 | disposition home or self-care (01) ==
LOC: ER 12:00
DX: T83.098A Other mechanical complication of other urinary catheter, initial encounter (principal); R31.9 Hematuria, unspecified; I11.0 Hypertensive heart disease with heart failure; I50.9 Heart failure, unspecified; E11.9 Type 2 diabetes mellitus without complications; J44.9 Chronic obstructive pulmonary disease, unspecified; G89.29 Other chronic pain; Z90.49 Acquired absence of other specified parts of digestive tract; Z98.890 Other specified postprocedural states; Z88.0 Allergy status to penicillin; Z88.1 Allergy status to other antibiotic agents; Z88.5 Allergy status to narcotic agent; Z88.2 Allergy status to sulfonamides; Z79.899 Other long term (current) drug therapy; Y84.6 Urinary catheterization as the cause of abnormal reaction of the patient, or of later complication, without mention of misadventure at the time of the procedure; Y92.89 Other specified places as the place of occurrence of the external cause
CPT/HCPCS: 36415; 51702; 80048; 85025; 99284

== ENCOUNTER 2020-08-16 12:37 | Outpatient (CLI) | payer MEDICARE, MEDICAID ==
[~2020-08-16 12:37] MED LIST changes: -ALB0.5UD IH; +ALBU17AE26 PO; +AMIO200T27 PO; -AMIO200T61 PO; -ASCO500C15 PO; -ASPI-611 PO; -BUSP10TA11 PO; +BUSP30TA3 PO; +CALC-1215 PO; -CALC1TAB PO; -CEPH-572 PO; +CYAN-34 PO; +CYCL-1 PO; -DOCU-329 PO; +DONE10TA44 PO; +FLO0.4C PO; +HYDR-3972 PO; -HYDR-4353 PO; -LEVO100T PO; -MULT-933 PO; -NITR0.4T SL; +OMEP-50 PO; -OMEP20CA11 PO; -OXYB5TAB16 PO; -PARO30TA73 PO; +QUET25TA34 PO; -SENN-162 PO; +SERT100T10 PO; -TIOT18CA3 INH; +UMEC62.5 PO
[2020-08-16 13:48] LABS: CLARITY,URINE CLOUDY (Clear); COLOR,URINE YELLOW (Yellow); GLUCOSE, URINE NEGATIVE (Neg); KETONES,URINE NEGATIVE (Neg); LEUKOCYTE ESTERASE ,URINE LARGE (Neg); NITRITES, URINE POSITIVE (Neg); OCCULT BLOOD,URINE LARGE (Neg); PH,URINE 7.5 (4.8-8.0); PROTEIN,URINE TRACE mg/dl (Neg); UROBILINOGEN,URINE 0.2 E.U/dL (0.2-1.0)
[2020-08-16 13:51] LABS: UA COLLECTION TYPE NON-SPECIFIED
[2020-08-16 13:57] LABS: AMORPHOUS URATES 1+; BACTERIA,URINE 4+ /HPF (Neg); MUCUS STRANDS NONE SEEN /LPF (Neg); RBC,URINE 50-100 /HPF (0-2); SQUAMOUS EPITHELIAL CELL,UR NONE SEEN /LPF (FEW); WBC CLUMPS,URINE MANY /HPF (NEGATIVE); WBC,URINE TNTC /HPF (0-4); YEAST FEW /HPF (NEGATIVE)
== END 2020-08-16 23:59 | disposition home or self-care (01) ==
LOC: LAB 12:37
DX: N39.0 Urinary tract infection, site not specified (principal)
CPT/HCPCS: 81001; 87077; 87088; 87186